=== PATIENT | male | born 1930 | race Caucasian/White ===

== ENCOUNTER 2020-04-20 20:27 | Inpatient (IN) | payer MEDICARE, BC ==
[2020-04-20] MEDS ORDERED: LIDOCAINE 1% INJ 10MG/ML (20 ML MDV) ONE (20:52)
[2020-04-20] MEDS ORDERED: IV FLUID CONTINUATION 1,000 ML IV ONE (20:59)
--- NOTE | 2020-04-20 20:59 | ED ---
General Adult HPI - General Chief complaint: Arrhythmia/Palpitations Stated complaint: Bradycardia Source: EMS Mode of arrival: EMS - History of Present Illness Initial comments: Dictation was produced using Chip[employer] dictation software. please excuse any grammatical, word or spelling errors. This patient was cared for during a federal and state declared state of emergency secondary to Covid 19 Chief Complaint: 89-year-old male transferred from [facility] for heart block History of Present Illness: An is an 89-year-old male who is transferred from [facility] for third degree heart block. According to family member at bedside patient has been feeling generally weak especially worse today. He is having trouble walking proximally 10 feet. He was brought to [facility] via EMS. Patient was evaluated there is found to have complete heart block. [facility] ER physician contacted our pilot plant supervisor who recommended patient be transferred. Patient was started on dopamine infusion. Patient feels okay at rest at bedside. He has no specific complaints currently. The ROS documented in this emergency department record has been reviewed and confirmed by me. Those systems with pertinent positive or negative responses have been documented in the HPI. All other systems are other negative and/or noncontributory. PHYSICAL EXAM: General Impression: Alert and oriented x3, not in acute distress HEENT: Normocephalic atraumatic, extra-ocular movements intact, pupils equal and reactive to light bilaterally, mucous membranes moist. Cardiovascular: Heart regular rate and rhythm Chest: Able to complete full sentences, no retractions, no tachypnea Abdomen: abdomen soft, non-tender, non-distended, no organomegaly Musculoskeletal: Pulses present and equal in all extremities, no peripheral edema Motor: no focal deficits noted Neurological: CN II-XII grossly intact, no focal motor or sensory deficits noted Skin: Intact with no visualized rashes Psych: Normal affect and mood ED course: 89-year-old male transferred from [facility] for third degree heart block. Vital signs upon arrival shows heart rate of 39, Rezulin signs within acceptable limits. Patient's will. Bedside. EKG was performed showing bradycardia. Initial EKG not entirely convincing for heart block however a repeat EKG was performed showing A-V dissociation. Dr. Schultz the pilot plant supervisor team once patient to go to the [facility] urgently for pacemaker placement. Case was discussed with Dr. Bubba Kaufman is willing to accept patients care. EKG interpretation: Ventricular rate 40, junctional rhythm, QRS 92, QTC 360. No MN prolongation, no QTC prolongation, no ST or T-wave changes noted. - Related Data Home Medications Medication Instructions Recorded Confirmed Aspirin EC [Ecotrin Low Dose] 81 mg PO DAILY 04/20/20 04/20/20 Cholecalciferol [Vitamin D3 (25 2,000 unit PO DAILY 04/20/20 04/20/20 Mcg = 1000 Iu)] Oxybutynin Xl [Ditropan Xl] 5 mg PO DAILY 04/20/20 04/20/20 Prevagen Memory 1 tab PO DAILY 04/20/20 04/20/20 Allergies Allergy/AdvReac Type Severity Reaction Status Date / Time No Known Allergies Allergy Verified 04/20/20 20:58 Review of Systems ROS Statement: Those systems with pertinent positive or pertinent negative responses have been documented in the HPI. ROS Other: All systems not noted in ROS Statement are negative. Past Medical History Additional Past Medical History / Comment(s): prostate cancer History of Any Multi-Drug Resistant Organisms: None Reported Past Surgical History: Cholecystectomy, Prostate Surgery Additional Past Surgical History / Comment(s): bilat knee replacements, shoulder surgery, carpal tunnel on right hand. Past Psychological History: No Psychological Hx Reported Smoking Status: Former smoker Past Alcohol Use History: None Reported Past Drug Use History: None Reported Course Vital Signs 04/20/20 04/20/20 20:31 20:50 Pulse Rate 39 L 42 L Respiratory 18 18 Rate Blood Pressure 120/105 167/83 O2 Sat by Pulse 97 99 Oximetry Disposition Clinical Impression: Heart block Disposition: ADMITTED IP TO THIS HOSP Condition: Critical Decision Time: 22:15
[2020-04-20] MEDS ORDERED: NALOXONE 0.4 MG/ML 1 ML VIAL IV PRN (21:00)
[2020-04-20] MEDS ORDERED: LIDOCAINE 1% INJ 10MG/ML (20 ML MDV) SQ ONE (21:01)
[2020-04-20] MEDS ORDERED: fentaNYL (PF) 50 MCG/ML 2 ML AMP ONE (21:10)
[2020-04-20] MEDS ORDERED: fentaNYL (PF) 50 MCG/ML 2 ML AMP IV ONE (21:11)
[2020-04-20] MEDS ORDERED: MIDAZOLAM 2 MG/2 ML VIAL IV ONE (21:20)
[2020-04-20 22:05] LABS: Glucose,Whole Blood 109 mg/dL (75-99)
--- NOTE | 2020-04-20 23:01 | CONS ---
CONSULTATION CHIEF COMPLAINT: High-grade AV block. This is an 89-year-old gentleman with history of dementia who complained of feeling dizzy, unwell and out of focus. He was brought to the emergency room at [facility], where an EKG showed bradycardia with AV dissociation suggestive of complete heart block. The patient is not on any AV polly blockers. There is no prior cardiac history. MEDICATIONS: We do not have a list. ALLERGIES: As charted. Family history, social history, review of systems I am unable to obtain from the patient. PHYSICAL EXAMINATION: On exam, he is comfortable at rest. Heart rate is 50 beats per minute. Blood pressure is 140/70, respiratory rate 18. Chest exam reveals good air entry bilaterally. Heart exam reveals first and second heart sounds. No gallop. He has a pansystolic murmur at the apex. Abdomen is soft. Examination of extremities did not reveal any edema. Peripheral pulses are felt. Labs are pending at this time. ASSESSMENT: Symptomatic high-grade AV block. PLAN: The patient will undergo temporary transvenous pacemaker, and if he does not resume sinus rhythm, he will undergo a permanent pacemaker. MMODL / IJN: [id number] /
--- NOTE | 2020-04-20 23:01 | PCN ---
PROCEDURE NOTE TEMPORARY TRANSVENOUS PACEMAKER: INDICATION: Symptomatic high-grade AV block. PROCEDURE NOTE: After obtaining informed consent, a temporary transvenous pacemaker was performed via the right femoral vein. The patient received local sedation and also received 25 mcg of fentanyl. Initial vascular access was obtained via the femoral vein, and under fluoroscopic guidance temporary transvenous pacemaker was floated into the right ventricle. Adequate pacing and sensing thresholds were obtained. The temporary pacemaker was situated in a stable way in the right groin. MMODL / IJN: [id number] /
[2020-04-20] MEDS ORDERED: TEMAZEPAM 15 MG CAP PO PRN (23:26)
[2020-04-20] MEDS ORDERED: MIDAZOLAM 1 MG/ML 5 ML VIAL IV STA (23:27)
[2020-04-20] MEDS ORDERED: MIDAZOLAM 2 MG/2 ML VIAL IV STA (23:37)
[2020-04-21] MEDS ORDERED: LORazepam 2 MG/ML INJ IV STA (00:33)
[2020-04-21] MEDS ORDERED: LORazepam 2 MG/ML INJ ONE (00:36)
[2020-04-21] MEDS: SODIUM CHLORIDE 0.9% 1,000 ML IV SCH ×2 (03:15→20:53)
[2020-04-21 04:26] LABS: Basophils # (A) 0.1 k/uL (0-0.2); Basophils % (A) 1 %; Eosinophils # (A) 0.2 k/uL (0-0.7); Eosinophils % (A) 2 %; HCT 44.4 % (39.0-53.0); HGB 14.8 gm/dL (13.0-17.5); Lymphocytes # (A) 1.8 k/uL (1.0-4.8); Lymphocytes % (A) 17 %; MCH 32.5 pg (25.0-35.0); MCHC 33.3 g/dL (31.0-37.0); MCV 97.6 fL (80.0-100.0); Mean Platelet Volume 8.4; Monocytes # (A) 0.8 k/uL (0-1.0); Monocytes % (A) 7 %; Neutrophils # (A) 7.3 k/uL (1.3-7.7); Neutrophils % (A) 72 %; RBC 4.55 m/uL (4.30-5.90); RDW 13.6 % (11.5-15.5); WBC 10.2 k/uL (3.8-10.6)
[2020-04-21 04:43] LABS: ALT 9 U/L (4-49); AST 22 U/L (17-59); African American GFR (CKD) >90 (>60 ml/min/1.73 sqM); Albumin 3.6 g/dL (3.5-5.0); Alkaline Phosphatase 63 U/L (38-126); Anion Gap 7 mmol/L; Blood Urea Nitrogen 15 mg/dL (9-20); Calcium 8.7 mg/dL (8.4-10.2); Carbon Dioxide 20 mmol/L (22-30); Chloride 112 mmol/L (98-107); Glucose 101 mg/dL (74-99); Non-African American GFR(CKD) 80 (>60 ml/min/1.73 sqM); Potassium 3.9 mmol/L (3.5-5.1); Sodium 139 mmol/L (137-145); Total Bilirubin 1.1 mg/dL (0.2-1.3)
[2020-04-21 04:46] LABS: Platelet Count 136 k/uL (150-450)
[2020-04-21] MEDS: HEPARIN SODIUM,PORCINE 5,000 UNIT/ML 1 ML VIAL SQ SCH ×2 (08:50→20:50)
[2020-04-21] MEDS: NITROGLYCERIN OINT 1 INCH/GM PACKET TOPICAL SCH ×3 (08:50→23:17)
[2020-04-21] MEDS ORDERED: Potassium Replacement Protocol 1 EACH MISC MISCELLANE PRN (09:20)
--- NOTE | 2020-04-21 09:36 | PN ---
PROGRESS NOTE Arie is an 89-year-old gentleman who is admitted to hospital with symptomatic high- grade AV block. Has a temporary pacemaker which he is using and is functioning normally. An echocardiogram shows normal LV function. Patient has underlying dementia and appears somewhat confused and agitated. On exam, heart rate is 60 beats per minute. Blood pressure is elevated at 160/90. Chest exam reveals good air entry bilaterally. Heart exam reveals first and second heart sounds. No gallop. Exam of extremities did not reveal any edema. Peripheral pulses are palpable. LABS: Show a hemoglobin of 14.8, potassium is 3.9, creatinine is 0.79. ASSESSMENT: Complete heart block, status post temporary transvenous pacemaker. PLAN: Patient will undergo permanent pacemaker later today. He has underlying confusion and dementia, appears agitated. MMODL / IJN: [id number] /
--- NOTE | 2020-04-21 11:00 | ECHOF ---
Referral Reason:HEART BLOCK MEASUREMENTS -------- HEIGHT: 172.7 cm WEIGHT: 82.6 kg BP: 111/99 RVIDd: 2.4 cm (< 3.3) IVSd: 1.4 cm (0.6 - 1.1) LVIDd: 4.3 cm (3.9 - 5.3) LVPWd: 1.4 cm (0.6 - 1.1) IVSs: 1.8 cm LVIDs: 3.3 cm LVPWs: 1.9 cm LA Diam: 3.4 cm (2.7 - 3.8) Ao Diam: 3.9 cm (2.0 - 3.7) MV EXCURSION: 24.295 mm (> 18.000) MV EF SLOPE: 96 mm/s (70 - 150) EPSS: 0.7 cm RAP: 5.00 mmHg RVSP: 20.86 mmHg FINDINGS -------- Paced rhythm. This was a technically adequate study. The left ventricular size is normal. There is moderate concentric left ventricular hypertrophy. O verall left ventricular systolic function is normal with, an EF between 55 - 60 %. The right ventricle is normal in size. The left atrial size is normal. Interatrial and interventricular septum intact. There is mild aortic valve sclerosis. Mild mitral annular calcification present. Mild mitral regurgitation is present. Mild tricuspid regurgitation present. Right ventricular systolic pressure is normal at < 35 mmHg. The pulmonic valve was not well visualized. The aortic root is dilated measuring 3.9cm. IVC Not well visulized. There is no pericardial effusion. CONCLUSIONS -------- 1. Paced rhythm. 2. This was a technically adequate study. 3. The left ventricular size is normal. 4. There is moderate concentric left ventricular hypertrophy. 5. Overall left ventricular systolic function is normal with, an EF between 55 - 60 %. 6. There is mild aortic valve sclerosis. 7. Mild mitral annular calcification present. 8. Mild mitral regurgitation is present. 9. Mild tricuspid regurgitation present. 10. The aortic root is dilated measuring 3.9cm. 11. There is no pericardial effusion. DICTIONARY EDITOR: Fiordaliza Koo [facility]
--- NOTE | 2020-04-21 11:53 | P.HPIM ---
History of Present Illness H&P Date: 04/21/20 Chief Complaint: Increasing generalized weakness, transferred from [facility] -Third degree HB This is a pleasant 82-year-old gentleman initially brought in with increasing generalized weakness, gait dysfunction, evaluated in the ER at at [facility] ,discovered to be in symptomatic third-degree heart block, transferred to [facility]. Evaluated by cardiology, initiated on dopamine drip, status post temporary transvenous pacer placement. Scheduled for permanent pacemaker today. Afebrile, normal WBC, hematology unremarkable with the exception of platelets of 136. Sodium 139, potassium 3.9, chloride 112, carbon dioxide 20, BUN 15, creatinine 0.79. Echo reporting normal LV function. Mild confusion, disoriented to year, president. Staff reports during the night patient was combative, confused, suspect resulting from heart block. Review of Systems ROS Statement: Those systems with pertinent positive or pertinent negative responses have been documented in the HPI. ROS Other: All systems not noted in ROS Statement are negative. Past Medical History Additional Past Medical History / Comment(s): prostate cancer History of Any Multi-Drug Resistant Organisms: None Reported Past Surgical History: Cholecystectomy, Prostate Surgery Additional Past Surgical History / Comment(s): bilat knee replacements, shoulder surgery, carpal tunnel on right hand. Past Psychological History: No Psychological Hx Reported Smoking Status: Former smoker Past Alcohol Use History: None Reported Past Drug Use History: None Reported Medications and Allergies Home Medications Medication Instructions Recorded Confirmed Type Aspirin EC [Ecotrin Low Dose] 81 mg PO DAILY 04/20/20 04/20/20 History Cholecalciferol [Vitamin D3 (25 2,000 unit PO DAILY 04/20/20 04/20/20 History Mcg = 1000 Iu)] Oxybutynin Xl [Ditropan Xl] 5 mg PO DAILY 04/20/20 04/20/20 History Prevagen Memory 1 tab PO DAILY 04/20/20 04/20/20 History Allergies Allergy/AdvReac Type Severity Reaction Status Date / Time No Known Allergies Allergy Verified 04/20/20 20:58 Physical Exam Vitals: Vital Signs Temp Pulse Resp BP Pulse Ox 04/21/20 09:00 60 12 121/76 99 04/21/20 08:30 60 12 111/99 100 04/21/20 08:00 97.5 F L 60 12 121/102 100 04/21/20 07:30 61 18 96 07/30/20 07:00 62 14 174/83 94 L 04/21/20 06:30 60 12 04/21/20 06:00 60 11 L 170/80 95 04/21/20 05:30 59 L 16 97 04/21/20 05:00 59 L 22 167/92 92 L 04/21/20 04:30 60 18 98 04/21/20 04:00 97.5 F L 60 14 140/93 96 04/21/20 03:30 60 12 182/123 98 04/21/20 03:00 60 14 171/106 98 04/21/20 02:30 60 20 98 04/21/20 02:00 60 12 154/116 98 04/21/20 01:30 61 14 97 04/21/20 01:00 90 30 H 177/117 93 L 04/21/20 00:30 81 30 H 96 04/21/20 00:18 71 22 93 L 04/21/20 00:00 97.4 F L 60 15 155/81 96 04/20/20 23:30 60 17 96 04/20/20 23:00 96.9 F L 60 16 174/90 94 L 04/20/20 22:30 59 L 14 97 04/20/20 22:00 61 13 99 04/20/20 21:48 35 H 04/20/20 20:50 42 L 18 167/83 99 04/20/20 20:31 39 L 18 120/105 97 Intake and Output 04/20/20 04/21/20 04/21/20 22:59 06:59 14:59 Intake Total 100 160 60 Output Total 2425 425 Balance 154 -9962 -401 Intake: IV 100 Intake, IV Titration 160 60 Amount Sodium Chloride 0.9% 1, 160 60 000 ml @ 20 mls/hr IV . Q[facility]H [facility] Rx#:[id number] Output: Urine 2425 425 Other: Voiding Method Indwelling Catheter Weight 90.718 kg 83 kg PHYSICAL EXAM: VITAL SIGNS: As above GENERAL: Sitting up in bed, no acute distress, appears alert and oriented to person and place, recognizes PCP, Dr. Kaufman. HEENT: Conjunctivae normal. eyes normal. NECK: No JVD. No thyroid enlargement. No LNs CARDIOVASCULAR: S1, S2 regular.No murmur RESPIRATION: Breath sounds diminished in the bases. No rhonchi or crackles. No bronchial breathing. ABDOMEN: Soft, nontender . No guarding. no masses palpable. No ascites, No hepatosplenomegaly.Bowel sounds heard. LEGS: No edema. no swelling PSYCHIATRY: Alert and oriented X2, mood and affect normal. NERVOUS SYSTEM: Cranial N 2-12 grossly normal. Moves all 4 limbs. Diffuse weakness ,No focal deficits. Strength and sensation grossly intact.. Skin: Warm and dry, no rash Lymphatic system. No LN neck axilla. Results CBC & Chem 7: 04/21/20 03:50 04/21/20 03:50 Labs: Abnormal Lab Results - Last 24 Hours (Table) 04/20/20 04/21/20 04/21/20 Range/Units 21:52 03:50 03:50 Plt Count 136 L (150-450) k/uL Chloride 112 H (98-107) mmol/L Carbon Dioxide 20 L (22-30) mmol/L Glucose 101 H (74-99) mg/dL POC Glucose (mg/dL) 109 H (75-99) mg/dL Total Protein 6.0 L (6.3-8.2) g/dL Assessment and Plan Assessment: Third-degree heart block, symptomatic, permanent pacemaker placement pending. Acute metabolic encephalopathy, secondary to the above Former nicotine dependence History of prostate surgery Plan: Continue on current medication regime ,monitoring and symptomatic treatment. Scheduled for permanent pacemaker placement today with cardiology. GI and DVT prophylaxis with heparin subcu, Protonix. The impression and plan of care has been dictated as directed. : I performed a history and examination of this patient, discussed the same with the dictator. I agree with the dictator's note ,documented as a scribe. Any additional findings or plans will be noted.
[2020-04-21] MEDS: PANTOPRAZOLE 40 MG/10 ML VIAL IVP SCH (13:23)
[2020-04-21] MEDS ORDERED: ACETAMINOPHEN TAB 325 MG TAB PO STA (17:26)
[2020-04-21] MEDS: MELATONIN 5 MG TABLET PO SCH (20:49)
[2020-04-21] MEDS: LORazepam 2 MG/ML INJ IV PRN (21:38)
[2020-04-22] MEDS ORDERED: NITROGLYCERIN-D5W PMX 50 MG in DEXTROSE/WATER 1 250ML.BAG IV SCH (03:15)
[2020-04-22] MEDS ORDERED: IV FLUID CONTINUATION 1,000 ML IV ONE (07:10)
[2020-04-22] MEDS ORDERED: IV FLUID CONTINUATION 200 ML IV ONE (07:10)
[2020-04-22] MEDS ORDERED: IOPAMIDOL-250 50ML BTL IV ONE (07:31)
[2020-04-22] MEDS ORDERED: MIDAZOLAM 2 MG/2 ML VIAL ONE (07:37)
[2020-04-22] MEDS ORDERED: diphenhydrAMINE 50 MG/ML 1 ML VIAL ONE (07:37)
[2020-04-22] MEDS ORDERED: fentaNYL (PF) 50 MCG/ML 2 ML AMP ONE (07:37)
[2020-04-22] MEDS ORDERED: PROPOFOL 10 MG/ML 20 ML VIAL IV ONE (07:37)
[2020-04-22] MEDS ORDERED: LIDOCAINE 1% INJ 10MG/ML (20 ML MDV) ONE (07:42)
[2020-04-22] MEDS ORDERED: ceFAZolin 1,000 MG in SODIUM CHLORIDE 0.9% IRRIGATIO 250 ML IRRIGATION STA (07:52)
[2020-04-22] MEDS ORDERED: LIDOCAINE 1% INJ 10MG/ML (20 ML MDV) SQ ONE (08:03)
[2020-04-22] MEDS ORDERED: ACETAMINOPHEN TAB 325 MG TAB PO PRN (08:48)
--- NOTE | 2020-04-22 08:58 | P.PCN ---
Date of Procedure: 04/22/20 Preoperative Diagnosis: 3rd degree AV block Postoperative Diagnosis: The same Procedure(s) Performed: Axillary venography, dual-chamber permanent pacemaker Description of Procedure: HISTORY: This is a 89-year-old gentleman was admitted to the hospital with complete AV dissociation and panic AV block. Patient had a temporary pacemaker by Dr. Schultz who requested permanent pacemaker implantation. CONSENT:I have discussed the risks, benefits and alternative therapies for the above-mentioned procedure and for both sedation/analgesia as well as necessary blood product administration, if indicated, as they pertain to this patient. The patient has indicated understanding and acceptance of the risks and procedures discussed. PROCEDURE: Patient was brought to the lab in a fasting state. Patient was prepped and draped in the usual fashion. The department of anesthesia provided anesthesia during the procedure. Patient was confused and combative requiring sedation.. The skin below the left clavicle was infiltrated with lidocaine. An incision was made parallel to deltopectoral groove was deepened until the pectoral fascia was exposed. A pocket was created by blunt dissection and cautery. Axillary venography was performed to delineate the course of the axillary vein. 2 sticks were performed into extrathoracic portion of the axillary vein and 2 sheaths were advanced over the guidewires and left in subclavian vein. Conscious Sedation: This was provided by the department of anesthesia Duration 38minutes LEADS: ATRIAL: This is manufactured by [employer]. Model number is [id number] and the serial number is [id number] VENTRICULAR: This is manufactured by [employer]. Model number is [id number] and the serial number is [id number] The device: This is manufactured by [employer]. Model number [id number] and the serial number [id number] The ventricular lead is maneuvered l with help of a straight and curved stylets into the left ventricle apical septal region. Satisfactory position was obtained and threshold measurements were made. The atrial lead was then maneuvered into the right atrial appendage. And thresholds were obtained. THRESHOLDS: ATRIUM: The minimum pacing threshold was 1 at pulse width of 0.5 with impedance of 608 P-wave: 2 mV VENTRICLE: The minimal pacing threshold is 1 at pulse width of 0.5. The impedance is 810 R-wave: 8 The leads and pulse generator remained in the pocket after it was washed with antibiotics. Pocket was closed in the usual fashion. The fascia was closed with 2-0 Prolene ,the subcutaneous tissue was closed with 3-0 Prolene and the skin was closed with 4-0 Prolene. PROGRAMMING: MODE: AAIR to DDDR RATE: 60 to 130 OUTPUT: Atrium: 3.5 Ventricle: 3.5 V FINAL IMPRESSION: #1. Successful implantation of dual-chamber pacemaker. #2. Axillary venography COMPLICATIONS: None PLAN: Continue prophylactic antibiotics. Monitored on the telemetry unit. Increase activity as tolerated
[2020-04-22] MEDS ORDERED: APOAEQUORIN PO SCH (09:00)
[2020-04-22 09:37] LABS: Glucose,Whole Blood 120 mg/dL (75-99)
[2020-04-22] MEDS: OXYBUTYNIN XL 5 MG TAB.ER.24 PO SCH (09:55)
[2020-04-22] MEDS: CHOLECALCIFEROL 1,000 UNIT TAB PO SCH (09:55)
[2020-04-22] MEDS: PANTOPRAZOLE 40 MG/10 ML VIAL IVP SCH (09:56)
[2020-04-22] MEDS: NITROGLYCERIN OINT 1 INCH/GM PACKET TOPICAL SCH ×3 (10:00→23:17)
[2020-04-22 11:18] LABS: HGB 15.1 gm/dL (13.0-17.5); MCH 31.2 pg (25.0-35.0); MCHC 31.4 g/dL (31.0-37.0); MCV 99.3 fL (80.0-100.0); Mean Platelet Volume 7.8; Platelet Count 145 k/uL (150-450); RBC 4.83 m/uL (4.30-5.90); RDW 13.3 % (11.5-15.5); WBC 9.7 k/uL (3.8-10.6)
[2020-04-22] MEDS ORDERED: hydrALAZINE HCL 20 MG/ML 1 ML VIAL IVP STA (11:26)
[2020-04-22 11:30] LABS: African American GFR (CKD) >90 (>60 ml/min/1.73 sqM); Anion Gap 6 mmol/L; Blood Urea Nitrogen 16 mg/dL (9-20); Calcium 8.6 mg/dL (8.4-10.2); Carbon Dioxide 22 mmol/L (22-30); Chloride 111 mmol/L (98-107); Glucose 119 mg/dL (74-99); Non-African American GFR(CKD) 79 (>60 ml/min/1.73 sqM); Sodium 139 mmol/L (137-145)
[2020-04-22 11:39] LABS: Potassium 4.9 mmol/L (3.5-5.1)
--- NOTE | 2020-04-22 15:16 | P.PN ---
Subjective Progress Note Date: 04/22/20 Principal diagnosis: Chief Complaint: Increasing generalized weakness, transferred from [facility] -Third degree HB This is a pleasant 82-year-old gentleman initially brought in with increasing generalized weakness, gait dysfunction, evaluated in the ER at at [facility] ,discovered to be in symptomatic third-degree heart block, transferred to [facility]. Evaluated by cardiology, initiated on dopamine drip, status post temporary transvenous pacer placement. Scheduled for permanent pacemaker today. Afebrile, normal WBC, hematology unremarkable with the exception of platelets of 136. Sodium 139, potassium 3.9, chloride 112, carbon dioxide 20, BUN 15, creatinine 0.79. Echo reporting normal LV function. Mild confusion, disoriented to year, president. Staff reports during the night patient was combative, confused, suspect resulting from heart block. 04/22/2020 Patient is seen and evaluated and follow-up and currently remains in the ICU and is being closely monitored. Patient is just returned from pacemaker placement with Dr. Suarez. patient's dressing is dry and intact noted on the left chest wall. Current heart rate is 60 on the monitor. Patient continues to be drowsy status post sedation for the procedure. patient is afebrile. Cardiology following closely. Will continue to monitor closely. Review of systems: unable to obtain as patient was recently sedated for pacemaker placement Active Medications Acetaminophen (Tylenol Tab) 650 mg PO Q6HR PRN PRN Reason: Mild Pain Cholecalciferol (Vitamin D3 (25 Mcg = 1000 Iu)) 2,000 unit PO DAILY [facility] Last Admin: 04/22/20 09:55 Dose: Not Given Documented by: Sodium Chloride (Saline 0.9%) 1,000 mls @ 20 mls/hr IV .Q24H [facility] Last Admin: 04/21/20 20:53 Dose: 20 mls/hr Documented by: Lorazepam (Ativan) 0.5 mg IV Q6HR PRN PRN Reason: Anxiety Last Admin: 04/21/20 21:38 Dose: 0.5 mg Documented by: Melatonin (Melatonin) 5 mg PO HS [facility] Last Admin: 04/21/20 20:49 Dose: 5 mg Documented by: Miscellaneous Information (Potassium Per Protocol) 1 each MISCELLANE DAILY PRN; Protocol PRN Reason: Per Protocol Naloxone HCl (Narcan) 0.2 mg IV Q2M PRN PRN Reason: Opioid Reversal Nitroglycerin (Nitro-Bid Oint) 1 inch TOPICAL Q8HR [facility] Last Admin: 04/22/20 15:13 Dose: 1 inch Documented by: Oxybutynin Chloride (Ditropan Xl) 5 mg PO DAILY [facility] Last Admin: 04/22/20 09:55 Dose: Not Given Documented by: Pantoprazole Sodium (Protonix) 40 mg IVP DAILY [facility] Last Admin: 04/22/20 09:56 Dose: 40 mg Documented by: Sodium Chloride (Saline Flush) 10 ml IV Q12HR [facility] Last Admin: 04/22/20 09:56 Dose: 10 ml Documented by: Objective - Vital Signs Vital signs: Vital Signs Temp 98.6 F 04/22/20 10:00 Pulse 60 04/22/20 11:00 Resp 15 04/22/20 11:04 BP 154/98 04/22/20 11:00 Pulse Ox 100 04/22/20 11:00 Intake & Output 04/21/20 04/22/20 04/22/20 18:59 06:59 18:59 Intake Total 260 220 520 Output Total 1175 420 150 Balance -915 -200 370 Weight 80.4 kg Intake: IV 500 Intake, IV Titration 260 220 20 Amount Sodium Chloride 0.9% 1, 260 220 20 000 ml @ 20 mls/hr IV . Q24H [facility] Rx#:[id number] Output: Urine 1175 420 150 Other: Voiding Method Indwelling Catheter Indwelling Catheter Indwelling Catheter - Exam VITAL SIGNS: temp is 97.6F, pulse is 64, respirations are 14, blood pressure is 142/80, oxygen saturations 100% on room air. GENERAL: lying in bed, recently sedated, sleeping HEENT: Conjunctivae normal. eyes normal. NECK: No JVD. No thyroid enlargement. No LNs CARDIOVASCULAR: S1, S2 regular.No murmur RESPIRATION: Breath sounds diminished in the bases. No rhonchi or crackles. No bronchial breathing. ABDOMEN: Soft, nontender . No guarding. no masses palpable. No ascites, No hepatosplenomegaly. Bowel sounds heard. LEGS: No edema. no swelling PSYCHIATRY: Alert and oriented X2, mood and affect normal. NERVOUS SYSTEM: Cranial N 2-12 grossly normal. Moves all 4 limbs. Diffuse weakness ,No focal deficits. Strength and sensation grossly intact.. Skin: Warm and dry, no rash Lymphatic system. No LN neck axilla. - Labs CBC & Chem 7: 04/22/20 10:59 04/22/20 10:59 Labs: Abnormal Lab Results - Last 24 Hours (Table) 04/22/20 04/22/20 04/22/20 Range/Units 09:34 10:59 10:59 Plt Count 145 L (150-450) k/uL Chloride 111 H (98-107) mmol/L Glucose 119 H (74-99) mg/dL POC Glucose (mg/dL) 120 H (75-99) mg/dL Assessment and Plan Assessment: Third-degree heart block, symptomatic, status post permanent pacemaker placement Acute metabolic encephalopathy, secondary to the above Former nicotine dependence History of prostate surgery GI prophylaxis: Protonix DVT prophylaxis: Will resume subcu heparin once cleared by cardiology as patient just underwent pacemaker placement today Plan: continue current medications, management, and symptomatic treatment. patient continues to be closely monitored in the ICU. Cardiology following closely. Patient is status post pacemaker placement today. Will continue to monitor closely. prognosis is guarded. Further recommendations to follow.
[2020-04-22] MEDS: MELATONIN 5 MG TABLET PO SCH (21:16)
[2020-04-22] MEDS: SODIUM CHLORIDE 0.9% 1,000 ML IV SCH (21:47)
--- NOTE | 2020-04-23 06:30 | XR ---
EXAMINATION TYPE: XR chest 2V DATE OF EXAM: 04/23/2020 HISTORY: Lead placement check. REFERENCE: Previous study dated 07/23/2012. FINDINGS: There is a bipolar pacemaker place on the left. Approximately overlies the right atrium and distally overlies the right ventricle. The heart is enlarged. There is atelectasis at the lung bases bilaterally. Pleural spaces appear misha r. No pneumothorax is seen. IMPRESSION: SATISFACTORY PACEMAKER LEAD PLACEMENT.
[2020-04-23] MEDS: PANTOPRAZOLE 40 MG/10 ML VIAL IVP SCH (09:19)
[2020-04-23] MEDS: OXYBUTYNIN XL 5 MG TAB.ER.24 PO SCH (09:19)
[2020-04-23] MEDS: CHOLECALCIFEROL 1,000 UNIT TAB PO SCH (09:19)
[2020-04-23] MEDS: NITROGLYCERIN OINT 1 INCH/GM PACKET TOPICAL SCH ×2 (09:20→16:20)
--- NOTE | 2020-04-23 09:45 | P.PN ---
Subjective Progress Note Date: 04/23/20 This is a pleasant 89-year-old gentleman was admitted to the hospital symptomatic high-grade AV block. Initially temporary pacemaker was placed. Echocardiogram with Doppler study showed normal LV systolic function with mild MR and mild TR. He subsequently underwent placement of dual-chamber permanent pacemaker yesterday by Dr. Suarez. Overall the patient says he's feeling well. He is quite appearing and has some underlying dementia and therefore is a poor historian and does not always answer questions appropriately but currently has no significant complaints. He does not appear to be in any acute distress. Vital signs show heart rate in the 60s, blood pressure 146/84. Chest x-ray this morning showed adequate placement of pacemaker leads. Objective - Vital Signs Vital signs: Vital Signs Temp 97.7 F 04/23/20 00:40 Pulse 68 04/23/20 04:00 Resp 20 04/23/20 04:00 BP 146/84 04/23/20 00:40 Pulse Ox 96 04/23/20 00:40 Intake & Output 04/22/20 04/23/20 04/23/20 18:59 06:59 18:59 Intake Total 520 160 Output Total 225 975 Balance 295 -815 Weight 78 kg Intake: IV 500 Intake, IV Titration 20 160 Amount Sodium Chloride 0.9% 1, 20 160 000 ml @ 20 mls/hr IV . Q24H [facility] Rx#:[id number] Output: Urine 225 975 Other: Voiding Method Indwelling Catheter Indwelling Catheter - Exam PHYSICAL EXAMINATION: HEENT: Head is atraumatic, normocephalic. Pupils equal, round. Neck is supple. There is no elevated jugular venous pressure. HEART EXAMINATION: Heart sounds regular, S1 and S2 normal. No murmur or gallop heard. CHEST EXAMINATION: Lungs are clear to auscultation. LIC site with dressing dry and intact no significant edema, no erythema and no ecchymosis noted. ABDOMEN: Soft, nontender. Bowel sounds are heard. No organomegaly noted. EXTREMITIES: 1+ peripheral pulses with no evidence of peripheral edema and no calf tenderness noted. NEUROLOGIC patient is awake, alert and oriented x1-2. . - Labs CBC & Chem 7: 04/22/20 10:59 04/22/20 10:59 Labs: Abnormal Lab Results - Last 24 Hours (Table) 04/22/20 04/22/20 Range/Units 10:59 10:59 Plt Count 145 L (150-450) k/uL Chloride 111 H (98-107) mmol/L Glucose 119 H (74-99) mg/dL Assessment and Plan Assessment: #1 symptomatic high-grade AV block #2 status post implantation of permanent pacemaker #3 dementia #4 hypertension Plan: From cardiology's perspective, if pacemaker interrogation today is okay patient may be discharged home and follow-up in the office in about a week. Patient will need to maintain left arm restrictions including no raising the arm above shoulder level, no lifting greater than 5 pounds, no pushing no pulling and no reaching behind him for 4-6 weeks. Patient will need a sling initially. The above dictated assessment and findings were discussed with signing physician. The impression and plan of care have been directed as dictated. Chiara Chavez, Nurse Practitioner, acting as scribe for signing physician.
--- NOTE | 2020-04-23 23:29 | P.PN ---
Subjective Progress Note Date: 04/23/20 Principal diagnosis: Third-degree heart block, symptomatic, status post permanent pacemaker placement This is a pleasant 82-year-old gentleman initially brought in with increasing generalized weakness, gait dysfunction, evaluated in the ER at at [facility] ,discovered to be in symptomatic third-degree heart block, transferred to [facility]. Evaluated by cardiology, initiated on dopamine drip, status post temporary transvenous pacer placement. Scheduled for permanent pacemaker today. Afebrile, normal WBC, hematology unremarkable with the exception of platelets of 136. Sodium 139, potassium 3.9, chloride 112, carbon dioxide 20, BUN 15, creatinine 0.79. Echo reporting normal LV function. Mild confusion, disoriented to year, president. Staff reports during the night patient was combative, confused, suspect resulting from heart block. 04/22/2020 Patient is seen and evaluated and follow-up and currently remains in the ICU and is being closely monitored. Patient is just returned from pacemaker placement with Dr. Suarez. patient's dressing is dry and intact noted on the left chest wall. Current heart rate is 60 on the monitor. Patient continues to be drowsy status post sedation for the procedure. patient is afebrile. Cardiology following closely. Will continue to monitor closely. 04/23/2020 Patient admitted to hospital due to high-grade AV block. Underwent dual-chamber pacemaker placement on 04/22/2020. Patient is currently resting in bed comfortably. No complaints of chest pain or shortness of the. No fever no chills. Patient feels very weak and also has underlying dementia. No acute distress. Patient may need rehab transfer. 2D echocardiogram showed normal left ventricular systolic function. Mild MR and mild TR. Current medications reviewed. Objective - Vital Signs Vital signs: Vital Signs Temp 98.4 F 04/23/20 08:00 Pulse 62 04/23/20 11:58 Resp 18 04/23/20 16:00 BP 137/74 04/23/20 08:00 Pulse Ox 96 04/23/20 08:00 Intake & Output 04/23/20 04/23/20 04/24/20 06:59 18:59 06:59 Intake Total 160 860 Output Total 975 Balance -815 860 Weight 78 kg Intake: Intake, IV Titration 160 480 Amount Sodium Chloride 0.9% 1, 160 480 000 ml @ 20 mls/hr IV . Q24H [facility] Rx#:[id number] Oral 380 Output: Urine 975 Other: Voiding Method Indwelling Catheter Indwelling Catheter # Voids 2 - Exam GENERAL: Patient is lying in the bed comfortably. Awake alert and oriented. Underlying dementia. HEENT: Conjunctivae normal. eyes normal. NECK: No JVD. No thyroid enlargement. No LNs CARDIOVASCULAR: S1, S2 regular.No murmur RESPIRATION: Breath sounds diminished in the bases. No rhonchi or crackles. No bronchial breathing. ABDOMEN: Soft, nontender . No guarding. no masses palpable. No ascites, No hepatosplenomegaly. Bowel sounds heard. LEGS: No edema. no swelling PSYCHIATRY: Alert and oriented X2, mood and affect normal. NERVOUS SYSTEM: Cranial N 2-12 grossly normal. Moves all 4 limbs. Diffuse weakness ,No focal deficits. Strength and sensation grossly intact.. Skin: Warm and dry, no rash Lymphatic system. No LN neck axilla. - Labs CBC & Chem 7: 04/22/20 10:59 04/22/20 10:59 Assessment and Plan Assessment: Third-degree heart block, symptomatic, status post permanent pacemaker placement Acute metabolic encephalopathy, secondary to the above Dementia Former nicotine dependence History of prostate surgery GI prophylaxis: Protonix DVT prophylaxis: Will resume subcu heparin once cleared by cardiology as patient just underwent pacemaker placement Plan: continue current medications, management, and symptomatic treatment. Patient is currently in the cardiac unit.. Cardiology following closely. Patient is s tatus post pacemaker placement today. Will continue to monitor closely. prognosis is guarded. Further recommendations to follow. Time with Patient: Greater than 30
[2020-04-24] MEDS: MELATONIN 5 MG TABLET PO SCH ×2 (00:02→22:56)
[2020-04-24] MEDS: NITROGLYCERIN OINT 1 INCH/GM PACKET TOPICAL SCH ×3 (00:04→16:25)
[2020-04-24] MEDS: LORazepam 2 MG/ML INJ IV PRN (01:17)
[2020-04-24] MEDS: SODIUM CHLORIDE 0.9% 1,000 ML IV SCH (05:39)
[2020-04-24] MEDS ORDERED: PANTOPRAZOLE 40 MG TABLET PO SCH (09:00)
[2020-04-24] MEDS: PANTOPRAZOLE 40 MG TABLET PO SCH (10:09)
[2020-04-24] MEDS: CHOLECALCIFEROL 1,000 UNIT TAB PO SCH (10:09)
[2020-04-24] MEDS: OXYBUTYNIN XL 5 MG TAB.ER.24 PO SCH (10:09)
--- NOTE | 2020-04-24 11:42 | PN ---
PROGRESS NOTE 89-year-old gentleman that is admitted to hospital with high-grade AV block, underwent permanent pacemaker. He is doing well and is pleasantly confused as he has been all along. Denies any symptoms. On exam, heart rate is 64 beats per minute. Blood pressure is 140/79, respiratory rate 18. O2 saturation is 95% on room air. There is no jugular venous distention. Chest exam reveals good air entry bilaterally. Heart exam reveals first and second heart sounds and a systolic murmur at the apex. Abdomen is soft. Exam of extremities did not reveal any edema. Peripheral pulses are felt. Labs show a hemoglobin of 15.1, potassium is 4.9, creatinine is 0.8. ASSESSMENT: 1. High-grade AV block status post permanent pacemaker. 2. Confusional state. PLAN: Patient is stable from a cardiac standpoint, probably needs placement. We need to restrict his movement. MMODL / IJN: [id number] /
--- NOTE | 2020-04-24 23:12 | P.PN ---
Subjective Progress Note Date: 04/24/20 Principal diagnosis: Third-degree heart block, symptomatic, status post permanent pacemaker placement This is a pleasant 82-year-old gentleman initially brought in with increasing generalized weakness, gait dysfunction, evaluated in the ER at at [facility] ,discovered to be in symptomatic third-degree heart block, transferred to [facility]. Evaluated by cardiology, initiated on dopamine drip, status post temporary transvenous pacer placement. Scheduled for permanent pacemaker today. Afebrile, normal WBC, hematology unremarkable with the exception of platelets of 136. Sodium 139, potassium 3.9, chloride 112, carbon dioxide 20, BUN 15, creatinine 0.79. Echo reporting normal LV function. Mild confusion, disoriented to year, president. Staff reports during the night patient was combative, confused, suspect resulting from heart block. 04/22/2020 Patient is seen and evaluated and follow-up and currently remains in the ICU and is being closely monitored. Patient is just returned from pacemaker placement with Dr. Suarez. patient's dressing is dry and intact noted on the left chest wall. Current heart rate is 60 on the monitor. Patient continues to be drowsy status post sedation for the procedure. patient is afebrile. Cardiology following closely. Will continue to monitor closely. 04/23/2020 Patient admitted to hospital due to high-grade AV block. Underwent dual-chamber pacemaker placement on 04/22/2020. Patient is currently resting in bed comfortably. No complaints of chest pain or shortness of the. No fever no chills. Patient feels very weak and also has underlying dementia. No acute distress. Patient may need rehab transfer. 2D echocardiogram showed normal left ventricular systolic function. Mild MR and mild TR. 8-2 20 Patient is currently resting in bed comfortably. Denied any complaints of chest pain or shortness of breath. Left upper extremity sling is in place. Pacemaker site showed no evidence of bleeding. Patient will be continued on PT OT and possible rehab transfer in the next 24 to 48 hours. Current medications reviewed. Objective - Vital Signs Vital signs: Vital Signs Temp 98.3 F 04/24/20 08:00 Pulse 66 04/24/20 16:00 Resp 17 04/24/20 16:00 BP 146/79 04/24/20 08:00 Pulse Ox 95 04/24/20 08:00 Intake & Output 04/24/20 04/24/20 04/25/20 06:59 18:59 06:59 Intake Total 1080 Output Total 1300 Balance -1300 1080 Weight 76.5 kg Intake: Oral 1080 Output: Urine 1300 Other: Voiding Method Indwelling Catheter Toilet # Voids 2 4 # Bowel Movements 1 - Exam GENERAL: Patient is lying in the bed comfortably. Awake alert and oriented. Underlying dementia. HEENT: Conjunctivae normal. eyes normal. NECK: No JVD. No thyroid enlargement. No LNs CARDIOVASCULAR: S1, S2 regular.No murmur RESPIRATION: Breath sounds diminished in the bases. No rhonchi or crackles. No bronchial breathing.Left upper chest pacemaker in place. ABDOMEN: Soft, nontender . No guarding. no masses palpable. No ascites, No hepatosplenomegaly. Bowel sounds heard. LEGS: No edema. no swelling PSYCHIATRY: Alert and oriented X2, mood and affect normal. NERVOUS SYSTEM: Cranial N 2-12 grossly normal. Moves all 4 limbs. Diffuse weakness ,No focal deficits. Strength and sensation grossly intact.. Skin: Warm and dry, no rash Lymphatic system. No LN neck axilla. - Labs CBC & Chem 7: 04/22/20 10:59 04/22/20 10:59 Assessment and Plan Assessment: Third-degree heart block, symptomatic, status post permanent pacemaker placement Acute metabolic encephalopathy, secondary to the above Dementia Former nicotine dependence History of prostate surgery GI prophylaxis: Protonix DVT prophylaxis: Will resume subcu heparin once cleared by cardiology as patient just underwent pacemaker placement Plan: continue current medications, management, and symptomatic treatment. Patient is currently in the cardiac unit.. Cardiology following closely. Patient is status post pacemaker placement . Will continue to monitor closely. prognosis is guarded. Further recommendations to follow. Time with Patient: Greater than 30
[2020-04-25] MEDS: SODIUM CHLORIDE 0.9% 1,000 ML IV SCH (08:10)
[2020-04-25] MEDS: NITROGLYCERIN OINT 1 INCH/GM PACKET TOPICAL SCH ×2 (08:10→08:19)
[2020-04-25] MEDS: OXYBUTYNIN XL 5 MG TAB.ER.24 PO SCH (08:11)
[2020-04-25] MEDS: PANTOPRAZOLE 40 MG TABLET PO SCH (08:11)
[2020-04-25] MEDS: CHOLECALCIFEROL 1,000 UNIT TAB PO SCH (08:11)
[2020-04-25] MEDS ORDERED: HEPARIN SODIUM,PORCINE 5,000 UNIT/ML 1 ML VIAL SQ SCH (09:00)
--- NOTE | 2020-04-25 09:06 | P.PN ---
Subjective Progress Note Date: 04/25/20 Principal diagnosis: Status post permanent pacemaker This is an 89-year-old gentleman who was admitted to the hospital with advanced AV block and underwent a permanent pacemaker. He was seen today. Overall and from the cardiac vascular standpoint overview, he is a stable. He denies any chest pain or chest discomfort or shortness of breath. Chest x-ray was performed after the pacemaker and revealed appropriate position of the pacemaker lead. From the cardiac vascular standpoint of view, the patient possibly can be discharged into a rehab or home. Objective - Vital Signs Vital signs: Vital Signs Temp 98.3 F 04/24/20 08:00 Pulse 66 04/24/20 16:00 Resp 17 04/25/20 00:00 BP 146/79 04/24/20 08:00 Pulse Ox 95 04/24/20 08:00 Intake & Output 04/24/20 04/25/20 04/25/20 18:59 06:59 18:59 Intake Total 1080 1020 Output Total 650 600 Balance 1080 -650 420 Weight 74 kg Intake: Oral 1080 1020 Output: Urine 650 600 Other: Voiding Method Toilet Toilet # Voids 4 1 # Bowel Movements 1 - Constitutional General appearance: Present: no acute distress - Respiratory Respiratory: bilateral: CTA - Cardiovascular Rhythm: regular Heart sounds: normal: S1, S2 - Labs CBC & Chem 7: 04/22/20 10:59 04/22/20 10:59 Assessment and Plan Assessment: Assessment #1 advanced AV block and status post permanent pacemaker #2 change in mental status Plan #1 overall the patient seems to be stable from a cardiac vascular standpoint overview
[2020-04-25 11:57] VITALS: BP 117/87; PULSE 59; RESP 17; TEMP 98.2
--- NOTE | 2020-04-27 10:02 | P.DS ---
Providers Date of admission: 04/20/20 21:01 Attending physician: Bubba Kaufman Consults: 04/20/20 21:00 Consult Physician Stat Consulting Provider: Khanh Schultz Consult Reason/Comments: heart block Do you want consulting provider notified?: Already Contacted Primary care physician: Bubba Kaufman Hospital Course: Diagnoses: Third-degree heart block, symptomatic, status post permanent pacemaker placement Acute metabolic encephalopathy, secondary to the above. Completely resolved Dementia Former nicotine dependence History of prostate surgery Hospital course: This is a pleasant 89 years old male with multiple medical problems as below presents with generalized weakness and bradycardia found to have third-degree heart block, patient has been evaluated by stock letterer and he underwent dual-chamber pacemaker placement on 04/22 and post operatively patient is doing well, is fully awake and oriented, he denies chest pain or dyspnea, he is tolerating diet well, no change in urine or bowel habits as he is told me this morning. No fever. Patient is able to walk in the hallway, physical therapy evaluated the patient and recommended 24 hour supervision with family and home health care Patient has been evaluated by stock letterer who cleared him for discharge Problems and management plan were discussed with the patient and he verbalized understanding and acceptance Patient was found stable and can be discharged home however he needs follow-up as an outpatient. Patient was instructed to follow up with PCP Dr. Kaufman within one week and patient agrees. Also patient was instructed to follow up with his stock letterer Dr. Suarez in 1-2 weeks and he agrees. Appointments made for the patient's with his PCP and stock letterer as above and patient is agreeable to them as per staff Gen: patient is a AAOx3, no distress CVS: S1-S2, RRR, no murmur Lungs: B/L CTA, no wheezing Abdomen: soft, no distention, no tenderness, positive bowel sounds Extremity: no leg edema or induration Time spent more than 35 minutes Patient Condition at Discharge: Critical Plan - Discharge Summary New Discharge Prescriptions: New Pantoprazole [Protonix] 40 mg PO DAILY #10 tablet. Acetaminophen Tab [Tylenol] 650 mg PO Q6HR PRN tab PRN Reason: Mild Pain Continue Oxybutynin Xl [Ditropan XL] 5 mg PO DAILY Cholecalciferol [Vitamin D3 (25 Mcg = 1000 Iu)] 2,000 unit PO DAILY Aspirin EC [Ecotrin Low Dose] 81 mg PO DAILY Prevagen Memory 1 tab PO DAILY Discharge Medication List Aspirin EC [Ecotrin Low Dose] 81 mg PO DAILY 04/20/20 [History] Cholecalciferol [Vitamin D3 (25 Mcg = 1000 Iu)] 2,000 unit PO DAILY 04/20/20 [History] Oxybutynin Xl [Ditropan XL] 5 mg PO DAILY 04/20/20 [History] Prevagen Memory 1 tab PO DAILY 04/20/20 [History] Acetaminophen Tab [Tylenol] 650 mg PO Q6HR PRN tab 04/25/20 [Rx] Pantoprazole [Protonix] 40 mg PO DAILY #10 tablet. 04/25/20 [Rx] Follow up Appointment(s)/Referral(s): [facility], [NON-STAFF] - Bubba Kaufman DO [Primary Care Provider] - 05/02/20 10:00 am (May 02 10:00) Kyle Suarez MD [STAFF PHYSICIAN] - 04/28/20 9:30 am (April 28 9:30 in device clinic) Patient Instructions/Handouts: Pacemaker (DC) Activity/Diet/Wound Care/Special Instructions: Heart healthy diet Activity is limited to till you see your doctor do not lift left arm above shoulder level for 4-6 weeks wear sling as much as possible keep dressing intact, cover with ceran wrap while showering Discharge Disposition: HOME WITH HOME HEALTH SERVICES
== END 2020-04-25 13:48 | disposition home health service (06) | DRG 242 ==
LOC: EC 20:27 → 2SICU 20:58 → 3SCARD 04-23 01:18
PROVIDERS: ADMIT Family Medicine; ATTEND Family Medicine
PROC: 5A1223Z Performance of Cardiac Pacing, Continuous (ICD-10-PCS; 2020-04-20)
PROC: 0JH606Z Insertion of Pacemaker, Dual Chamber into Chest Subcutaneous Tissue and Fascia, Open Approach (ICD-10-PCS; principal; 2020-04-22 07:30)
PROC: 02HL3JZ Insertion of Pacemaker Lead into Left Ventricle, Percutaneous Approach (ICD-10-PCS; principal; 2020-04-22 07:30)
PROC: 02H63JZ Insertion of Pacemaker Lead into Right Atrium, Percutaneous Approach (ICD-10-PCS; principal; 2020-04-22 07:30)
DX: I44.2 Atrioventricular block, complete (principal); G93.41 Metabolic encephalopathy; F03.91 Unspecified dementia, unspecified severity, with behavioral disturbance; Z96.653 Presence of artificial knee joint, bilateral; I10 Essential (primary) hypertension; Z79.82 Long term (current) use of aspirin; Z85.46 Personal history of malignant neoplasm of prostate; Z90.49 Acquired absence of other specified parts of digestive tract; Z87.891 Personal history of nicotine dependence
CPT/HCPCS: 33208; 33210; 71046; 80048; 80053; 83735; 85025; 85027; 93005; 93306; 99285

== ENCOUNTER 2020-12-02 16:45 | Inpatient (IN) | payer MEDICARE, BC ==
[2020-12-02] MEDS ORDERED: SODIUM CHLORIDE 0.9% 1,000 ML IV STA ×2 (16:58→19:13)
--- NOTE | 2020-12-02 17:02 | ED ---
Altered Mental Status HPI - General Stated Complaint: Altered Mental Status Time Seen by Provider: 12/02/20 16:45 Source: patient, EMS, RN notes reviewed, old records reviewed Mode of arrival: EMS - History of Present Illness Initial Comments: This is a 89-year-old male with a history of multiple medical issues including pacemaker and recently diagnosed urinary tract infection who is brought in from home his of altered mental status and increased respiratory rate and apparently failure to thrive with the antibiotics he is on right now. Per paramedics she did feel warm but he was uncooperative for a lot of the evaluation. He did recently have odiferous urine. No cough nausea vomiting diarrhea reported. The patient himself is a poor historian. MD Complaint: altered mental status, confusion, other - Related Data Home Medications Medication Instructions Recorded Confirmed Aspirin EC [Ecotrin Low Dose] 81 mg PO DAILY 04/20/20 04/20/20 Cholecalciferol [Vitamin D3 (25 2,000 unit PO DAILY 04/20/20 04/20/20 Mcg = 1000 Iu)] Oxybutynin Xl [Ditropan XL] 5 mg PO DAILY 04/20/20 04/20/20 Prevagen Memory 1 tab PO DAILY 04/20/20 04/20/20 Previous Rx's Medication Instructions Recorded Acetaminophen Tab [Tylenol] 650 mg PO Q6HR PRN tab 04/25/20 Pantoprazole [Protonix] 40 mg PO DAILY #10 tablet. 04/25/20 Allergies Allergy/AdvReac Type Severity Reaction Status Date / Time No Known Allergies Allergy Verified 04/20/20 20:58 Review of Systems ROS Statement: Those systems with pertinent positive or pertinent negative responses have been documented in the HPI. ROS Other: All systems not noted in ROS Statement are negative. Limitations: ROS unobtainable due to patients medical condition Past Medical History Additional Past Medical History / Comment(s): prostate cancer History of Any Multi-Drug Resistant Organisms: None Reported Past Surgical History: Cholecystectomy, Prostate Surgery Additional Past Surgical History / Comment(s): bilat knee replacements, shoulder surgery, carpal tunnel on right hand. Past Psychological History: No Psychological Hx Reported Smoking Status: Former smoker Past Alcohol Use History: None Reported Past Drug Use History: None Reported General Exam - General Exam Comments Initial Comments: This is a well-developed well-nourished awake alert but confused male General appearance: alert, lethargic Head exam: Present: atraumatic, normocephalic, normal inspection Eye exam: Present: normal appearance, PERRL, EOMI. Absent: scleral icterus, conjunctival injection, periorbital swelling ENT exam: Present: mucous membranes dry Neck exam: Present: normal inspection. Absent: tenderness, meningismus, lymphadenopathy Respiratory exam: Present: normal lung sounds bilaterally. Absent: respiratory distress, wheezes, rales, rhonchi, stridor Cardiovascular Exam: Present: normal rhythm, tachycardia, normal heart sounds. Absent: systolic murmur, diastolic murmur, rubs, gallop, clicks GI/Abdominal exam: Present: soft, distended, normal bowel sounds, other (Increased tympany to percussion). Absent: tenderness, guarding, rebound, rigid Rectal exam: Present: deferred Extremities exam: Present: full ROM, normal capillary refill, other (Patient's have dressing and a right heel or a wound is known.). Absent: tenderness, pedal edema, joint swelling, calf tenderness Back exam: Present: normal inspection Neurological exam: Present: alert, altered, CN II-XII intact Psychiatric exam: Present: other (Unknown at this time) Skin exam: Present: warm, dry, normal color, other (Except for right heel wound). Absent: rash Course Vital Signs 12/02/20 16:51 Temperature 97.3 F L Pulse Rate 88 Respiratory 24 Rate Blood Pressure 153/75 O2 Sat by Pulse 94 L Oximetry Medical Decision Making - Medical Decision Making Patient does have evidence of a UTI dehydration mildly elevated lactic acid evidence of ileus. Patient be admitted I did discuss case the patient's family the case is discussed with the [facility] - Lab Data Result diagrams: 12/02/20 17:02 12/02/20 17:02 Lab Results 12/02/20 12/02/20 12/02/20 Range/Units 17:02 17:02 17:02 WBC 14.1 H (3.8-10.6) k/uL RBC 4.66 (4.30-5.90) m/uL Hgb 14.9 (13.0-17.5) gm/dL Hct 44.9 (39.0-53.0) % MCV 96.3 (80.0-100.0) fL MCH 32.0 (25.0-35.0) pg MCHC 33.3 (31.0-37.0) g/dL RDW 14.2 (11.5-15.5) % Plt Count 207 (150-450) k/uL MPV 7.6 Neutrophils % 91 % Lymphocytes % 3 % Monocytes % 3 % Eosinophils % 2 % Basophils % 0 % Neutrophils # 12.8 H (1.3-7.7) k/uL Lymphocytes # 0.4 L (1.0-4.8) k/uL Monocytes # 0.4 (0-1.0) k/uL Eosinophils # 0.3 (0-0.7) k/uL Basophils # 0.0 (0-0.2) k/uL PT (9.0-12.0) sec INR (<1.2) Sodium 140 (137-145) mmol/L Potassium 4.4 (3.5-5.1) mmol/L Chloride 107 (98-107) mmol/L Carbon Dioxide 23 (22-30) mmol/L Anion Gap 10 mmol/L BUN 20 (9-20) mg/dL Creatinine 0.87 (0.66-1.25) mg/dL Est GFR (CKD-EPI)AfAm 89 (>60 ml/min/1.73 sqM) Est GFR (CKD-EPI)NonAf 77 (>60 ml/min/1.73 sqM) Glucose 170 H (74-99) mg/dL Plasma Lactic Acid Omar 2.2 H* (0.7-2.0) mmol/L Calcium 9.0 (8.4-10.2) mg/dL Magnesium 1.9 (1.6-2.3) mg/dL Total Bilirubin 1.2 (0.2-1.3) mg/dL AST 19 (17-59) U/L ALT 11 (4-49) U/L Alkaline Phosphatase 116 (38-126) U/L Ammonia <9 (<30) umol/L Creatine Kinase 57 (55-170) U/L Troponin I (0.000-0.034) ng/mL Total Protein 6.8 (6.3-8.2) g/dL Albumin 3.9 (3.5-5.0) g/dL Urine Color Urine Appearance (Clear) Urine pH (5.0-8.0) Ur Specific Morrison (1.001-1.035) Urine Protein (Negative) Urine Glucose (UA) (Negative) Urine Ketones (Negative) Urine Blood (Negative) Urine Nitrite (Negative) Urine Bilirubin (Negative) Urine Urobilinogen (<2.0) mg/dL Ur Leukocyte Esterase (Negative) Urine RBC (0-5) /hpf Urine WBC (0-5) /hpf Urine WBC Clumps (None) /hpf Urine Bacteria (None) /hpf 12/02/20 12/02/20 12/02/20 Range/Units 17:02 17:02 18:11 WBC (3.8-10.6) k/uL RBC (4.30-5.90) m/uL Hgb (13.0-17.5) gm/dL Hct (39.0-53.0) % MCV (80.0-100.0) fL MCH (25.0-35.0) pg MCHC (31.0-37.0) g/dL RDW (11.5-15.5) % Plt Count (150-450) k/uL MPV Neutrophils % % Lymphocytes % % Monocytes % % Eosinophils % % Basophils % % Neutrophils # (1.3-7.7) k/uL Lymphocytes # (1.0-4.8) k/uL Monocytes # (0-1.0) k/uL Eosinophils # (0-0.7) k/uL Basophils # (0-0.2) k/uL PT 10.7 (9.0-12.0) sec INR 1.0 (<1.2) Sodium (137-145) mmol/L Potassium (3.5-5.1) mmol/L Chloride (98-107) mmol/L Carbon Dioxide (22-30) mmol/L Anion Gap mmol/L BUN (9-20) mg/dL Creatinine (0.66-1.25) mg/dL Est GFR (CKD-EPI)AfAm (>60 ml/min/1.73 sqM) Est GFR (CKD-EPI)NonAf (>60 ml/min/1.73 sqM) Glucose (74-99) mg/dL Plasma Lactic Acid Omar (0.7-2.0) mmol/L Calcium (8.4-10.2) mg/dL Magnesium (1.6-2.3) mg/dL Total Bilirubin (0.2-1.3) mg/dL AST (17-59) U/L ALT (4-49) U/L Alkaline Phosphatase (38-126) U/L Ammonia (<30) umol/L Creatine Kinase (55-170) U/L Troponin I <0.012 (0.000-0.034) ng/mL Total Protein (6.3-8.2) g/dL Albumin (3.5-5.0) g/dL Urine Color Light [place] Urine Appearance Turbid (Clear) Urine pH 6.0 (5.0-8.0) Ur Specific Morrison 1.017 (1.001-1.035) Urine Protein 2+ H (Negative) Urine Glucose (UA) Negative (Negative) Urine Ketones Negative (Negative) Urine Blood Large H (Negative) Urine Nitrite Positive (Negative) Urine Bilirubin Negative (Negative) Urine Urobilinogen <2.0 (<2.0) mg/dL Ur Leukocyte Esterase Large H (Negative) Urine RBC >182 H (0-5) /hpf Urine WBC >182 H (0-5) /hpf Urine WBC Clumps Many H (None) /hpf Urine Bacteria Occasional H (None) /hpf - EKG Data -: EKG Interpreted by Me EKG Comments: Pacemaker rhythm 88. Interval 102 QRS duration 94 QT since QTC 332/41 artifact is present. - Radiology Data Radiology results: report reviewed (Imaging reviewed as well as reports evidence of increased interstitial markings on x-ray CTs are negative for acute findings. Some evidence of ileus), image reviewed Disposition Clinical Impression: Delirium due to general medical condition, Urinary tract infection, Dehydration, Lactic acidosis, Failure of outpatient treatment Disposition: ADMITTED IP TO THIS [facility] Condition: Fair Referrals: Bubba Kaufman DO [Primary Care Provider] - 1-2 days
[2020-12-02 17:17] LABS: Basophils % (A) 0 %; Eosinophils # (A) 0.3 k/uL (0-0.7); Eosinophils % (A) 2 %; HCT 44.9 % (39.0-53.0); HGB 14.9 gm/dL (13.0-17.5); Lymphocytes # (A) 0.4 k/uL (1.0-4.8); Lymphocytes % (A) 3 %; MCHC 33.3 g/dL (31.0-37.0); MCV 96.3 fL (80.0-100.0); Mean Platelet Volume 7.6; Monocytes # (A) 0.4 k/uL (0-1.0); Monocytes % (A) 3 %; Neutrophils # (A) 12.8 k/uL (1.3-7.7); Neutrophils % (A) 91 %; Platelet Count 207 k/uL (150-450); RBC 4.66 m/uL (4.30-5.90); RDW 14.2 % (11.5-15.5); WBC 14.1 k/uL (3.8-10.6)
[2020-12-02] MEDS: SODIUM CHLORIDE 0.9% 1,000 ML IV STA ×2 (17:19→20:04)
[2020-12-02 17:27] LABS: Prothrombin Time 10.7 sec (9.0-12.0)
[2020-12-02 17:28] LABS: Albumin 3.9 g/dL (3.5-5.0); Magnesium 1.9 mg/dL (1.6-2.3); Potassium 4.4 mmol/L (3.5-5.1); Total Bilirubin 1.2 mg/dL (0.2-1.3); Total Protein 6.8 g/dL (6.3-8.2)
[2020-12-02 17:36] LABS: Lactic Acid, Venous 2.2 mmol/L (0.7-2.0)
--- NOTE | 2020-12-02 17:54 | CT ---
EXAMINATION TYPE: CT brain wo con DATE OF EXAM: 12/02/2020 COMPARISON: None HISTORY: Altered mental status. CT DLP: 3652.4 mGycm Automated exposure control for dose reduction was used. There is cerebral atrophy. There is no mass effect nor midline shift. There is no sign of intracrania l hemorrhage. Calvarium is intact. There is normal aeration of the mastoid sinuses. IMPRESSION: Cerebral atrophy. No acute intracranial abnormality.
[2020-12-02] MEDS ORDERED: cefTRIAXone IN SWFI 1,000 MG/10 ML SYRINGE IVP STA (17:59)
[2020-12-02 18:27] LABS: Appearance,Urine Turbid (Clear); Bacteria,Urine Occasional /hpf; Bilirubin,Urine Negative (Negative); Blood,Urine Large (Negative); Color,Urine Light Orange; Glucose,Urine (UA) Negative (Negative); Ketones,Urine Negative (Negative); Leukocyte Esterase,Urine Large (Negative); Nitrite,Urine Positive (Negative); Protein,Urine 2+ (Negative); RBC,Urine >182 /hpf (0-5); Specific Gravity,Urine 1.017 (1.001-1.035); Urobilinogen,Urine <2.0 mg/dL (<2.0); WBC,Urine >182 /hpf (0-5)
--- NOTE | 2020-12-02 18:45 | XR ---
EXAMINATION TYPE: XR KUB DATE OF EXAM: 12/02/2020 COMPARISON: 09/14/2013 HISTORY: Abdominal distention TECHNIQUE: 3 views were obtained supine FINDINGS: There is no sign of intestinal obstruction or pneumoperitoneum. There is some gas-filled di stended loops of bowel that could be ileus. There is mild interstitial infiltrate and atelectasis at the lung bases. IMPRESSION: Distended gas-filled bowel could relate to some ileus similar to old exam. No free air.
--- NOTE | 2020-12-02 18:47 | XR ---
EXAMINATION TYPE: XR chest 2V DATE OF EXAM: 12/02/2020 COMPARISON: NONE HISTORY: Fever and confusion TECHNIQUE: 2 views FINDINGS: There is coarse interstitial infiltrate in the lungs. Heart size is normal. There is left a xillary pacemaker. There is slight blunting of the costophrenic angles. IMPRESSION: Pulmonary fibrotic changes. There is new interstitial infiltrates compared to old exam. S mall pleural effusions. Mild pulmonary congestion. Mild heart failure is possible.
[2020-12-02] MEDS ORDERED: ACETAMINOPHEN TAB 325 MG TAB PO PRN (19:09)
[2020-12-02] MEDS ORDERED: NALOXONE 0.4 MG/ML 1 ML VIAL IV PRN (19:09)
[2020-12-02] MEDS ORDERED: FUROSEMIDE 10 MG/ML 2 ML VIAL IV ONE (20:15)
[2020-12-02] MEDS ORDERED: SODIUM CHLORIDE 0.9% 1,000 ML IV SCH (20:30)
[2020-12-02] MEDS: MEMANTINE 10 MG TAB PO SCH (22:38)
[2020-12-02] MEDS: QUEtiapine 50 MG TAB PO SCH (22:38)
[2020-12-02] MEDS: PRAMIPEXOLE 0.5 MG TAB PO SCH (22:38)
[2020-12-02] MEDS: APIXABAN 2.5 MG TABLET PO SCH (22:39)
[2020-12-03] MEDS ORDERED: APOAEQUORIN PO SCH (09:00)
[2020-12-03] MEDS: MEMANTINE 10 MG TAB PO SCH ×2 (09:10→20:15)
[2020-12-03] MEDS: PANTOPRAZOLE 40 MG TABLET PO SCH (09:10)
[2020-12-03] MEDS: CHOLECALCIFEROL 25 MCG (1000 IU) TABLET PO SCH (09:10)
[2020-12-03] MEDS: ASPIRIN 81 MG PO SCH (09:10)
[2020-12-03] MEDS: APIXABAN 2.5 MG TABLET PO SCH ×2 (09:10→20:15)
[2020-12-03] MEDS ORDERED: DOCUSATE 100 MG CAP PO PRN (10:06)
[2020-12-03] MEDS: OXYBUTYNIN XL 5 MG TAB.ER.24 PO SCH (10:19)
[2020-12-03] MEDS ORDERED: FUROSEMIDE 10 MG/ML 4 ML VIAL IV STA (10:58)
--- NOTE | 2020-12-03 15:09 | P.HPIM ---
History of Present Illness 82-year-old male with history of dementia most probably vascular dementia side dementia came in because of increased confusion. Patient had a poor fully catheter that was placed in the past for her chronic urinary retention which was removed about 2 weeks ago since then patient progressively got worse much worse yesterday. Because of this reason patient was brought to ER patient is found to have significantly abnormal urine with highly elevated white blood cell count 10 and RBCs. Patient also has leukocytosis without any fever patient was started on antibiotics for possibility of urinary tract infection. As per my instruc tions nursing staff did do bladder scans found to have urinary retention. Centeno catheter was placed, infectious disease was consulted. Patient was on IV fluids patient does have history of heart failure and patient appears to have bilateral pedal edema patient does have elevated BNP IV fluids are being discontinued patient will be given a dose of Lasix. Patient had an echo cardiac exam showed normal ejection fraction mild aortic sclerosis and this was done in month of March in 2019. Patient is alert oriented 1 I will. History mostly because of his hearing problems. Review of Systems Unable to obtain due to his clinical condition Past Medical History Past Medical History: Heart Failure, Memory Impairment Additional Past Medical History / Comment(s): prostate cancer, eliquis after pacemaker put in, low heart rate is why he needed pacemaker, right heel pressure ulcer, bruises easily from blood thinner History of Any Multi-Drug Resistant Organisms: None Reported Past Surgical History: Cholecystectomy, Pacemaker, Prostate Surgery Additional Past Surgical History / Comment(s): bilat knee replacements, shoulder surgery, carpal tunnel on right hand. Past Anesthesia/Blood Transfusion Reactions: No Reported Reaction Type of Cardiac Device: Permanent Pacemaker Device Placement Date:: 2019 Past Psychological History: Anxiety Additional Psychological History / Comment(s): hallucinating before on seroquel Smoking Status: Former smoker Past Alcohol Use History: None Reported Past Drug Use History: None Reported - Past Family History Father Additional Family Medical History / Comment(s): emphysema Medications and Allergies Home Medications Medication Instructions Recorded Confirmed Type Cholecalciferol [Vitamin D3 (25 2,000 unit PO DAILY 04/20/20 12/02/20 History Mcg = 1000 Iu)] Apixaban [Eliquis] 2.5 mg PO BID 12/02/20 12/02/20 History Docusate [Colace] 100 mg PO DAILY PRN 12/02/20 12/02/20 History Furosemide [Lasix] 20 mg PO DAILY PRN 12/02/20 12/02/20 History Memantine HCl 10 mg PO BID 12/02/20 12/02/20 History Metoprolol Succinate [Toprol XL] 25 mg PO DAILY 12/02/20 12/02/20 History Nitrofurantoin Macrocrystal 100 mg PO Q12H 12/02/20 12/02/20 History [Nitrofurantoin] Pramipexole [Mirapex] 0.5 mg PO HS 12/02/20 12/02/20 History QUEtiapine [SEROquel] 50 mg PO HS 12/02/20 12/02/20 History Tamsulosin HCl [Flomax] 0.4 mg PO DAILY 12/02/20 12/02/20 History Allergies Allergy/AdvReac Type Severity Reaction Status Date / Time No Known Allergies Allergy Verified 12/02/20 19:57 Physical Exam Vitals: Vital Signs Temp Pulse Pulse Resp BP BP Pulse Ox 12/03/20 11:43 97.6 F 60 17 133/74 99 12/03/20 09:11 64 18 97 12/03/20 04:54 97.5 F L 57 L 18 114/67 98 12/02/20 21:15 98.2 F 73 18 133/77 93 L 12/02/20 19:08 98.6 F 153/75 12/02/20 16:51 97.3 F L 88 24 153/75 94 L Intake and Output 12/03/20 12/03/20 12/03/20 06:59 14:59 22:59 Output Total 2400 Balance -2400 Output: Urine 2400 Other: Voiding Method Diaper Incontinent # Voids 2 Weight 81.647 kg PHYSICAL EXAMINATION: GENERAL: The patient is alert and oriented x1, not in any acute distress. Well developed, well nourished. HEENT: Pupils are round and equally reacting to light. EOMI. No scleral icterus. No conjunctival pallor. Normocephalic, atraumatic. No pharyngeal erythema. No thyromegaly. CARDIOVASCULAR: S1 and S2 present. No murmurs, rubs, or gallops. PULMONARY: Chest is clear to auscultation, no wheezing or crackles. ABDOMEN: Soft, nontender, nondistended, normoactive bowel sounds. No palpable organomegaly. MUSCULOSKELETAL: No joint swelling or deformity. EXTREMITIES: No cyanosis, clubbing, or pedal edema. NEUROLOGICAL: She doesn't follow commands although doesn't appear to have any focal deficits SKIN: No rashes. Results CBC & Chem 7: 12/02/20 17:02 12/02/20 17:02 Labs: Abnormal Lab Results - Last 24 Hours (Table) 12/02/20 12/02/20 12/02/20 Range/Units 17:02 17:02 17:02 WBC 14.1 H (3.8-10.6) k/uL Neutrophils # 12.8 H (1.3-7.7) k/uL Lymphocytes # 0.4 L (1.0-4.8) k/uL Glucose 170 H (74-99) mg/dL Plasma Lactic Acid Omar 2.2 H* (0.7-2.0) mmol/L Urine Protein (Negative) Urine Blood (Negative) Ur Leukocyte Esterase (Negative) Urine RBC (0-5) /hpf Urine WBC (0-5) /hpf Urine WBC Clumps (None) /hpf Urine Bacteria (None) /hpf 12/02/20 Range/Units 18:11 WBC (3.8-10.6) k/uL Neutrophils # (1.3-7.7) k/uL Lymphocytes # (1.0-4.8) k/uL Glucose (74-99) mg/dL Plasma Lactic Acid Omar (0.7-2.0) mmol/L Urine Protein 2+ H (Negative) Urine Blood Large H (Negative) Ur Leukocyte Esterase Large H (Negative) Urine RBC >182 H (0-5) /hpf Urine WBC >182 H (0-5) /hpf Urine WBC Clumps Many H (None) /hpf Urine Bacteria Occasional H (None) /hpf Microbiology - Last 24 Hours (Table) 12/02/20 18:11 Urine Culture - Preliminary Urine,Voided Thrombosis Risk Factor Assmnt - Choose All That Apply Any of the Below Risk Factors Present?: Yes Each Factor Represents 1 point: Medical pt on bed rest, Obesity (BMI >25), Swollen legs (current) Other Risk Factors: Yes Each Risk Factor Represents 2 Points: Patient confined to bed Each Risk Factor Represents 3 Points: Age 75 years or older Other congenital or acquired thrombophilia - If yes, enter type in comment: No Thrombosis Risk Factor Assessment Total Risk Factor Score: 8 Thrombosis Risk Factor Assessment Level: High Risk Assessment and Plan Plan: -Encephalopathy: Most probably secondary to UTI or urinary retention 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 Patient will be continue antibiotics infectious disease will be consulted. 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
[2020-12-03] MEDS: QUEtiapine 50 MG TAB PO SCH (20:15)
[2020-12-03] MEDS: PRAMIPEXOLE 0.5 MG TAB PO SCH (20:15)
[2020-12-04] MEDS: AMPICILLIN-SULBACTAM 3 GM in SODIUM CHLORIDE 0.9% 100 ML IVPB SCH ×5 (00:37→23:39)
[2020-12-04] MEDS: CHOLECALCIFEROL 25 MCG (1000 IU) TABLET PO SCH (09:22)
[2020-12-04] MEDS: ASPIRIN 81 MG PO SCH (09:22)
[2020-12-04] MEDS: PANTOPRAZOLE 40 MG TABLET PO SCH (09:23)
[2020-12-04] MEDS: MEMANTINE 10 MG TAB PO SCH ×2 (09:23→20:16)
[2020-12-04] MEDS: APIXABAN 2.5 MG TABLET PO SCH ×2 (09:23→20:16)
[2020-12-04] MEDS: TAMSULOSIN 0.4 MG CAP.ER.24H PO SCH (09:23)
[2020-12-04] MEDS: OXYBUTYNIN XL 5 MG TAB.ER.24 PO SCH (09:23)
--- NOTE | 2020-12-04 09:45 | CONS ---
CONSULTATION DATE OF SERVICE: 12/03/2020 REASON FOR CONSULTATION: Urinary tract infection. HISTORY OF PRESENT ILLNESS: The patient is an 89 -year-old male who has been brought into the ER for evaluation of mental status changes and increasing respiratory distress and failure to thrive. Apparently the patient was recently diagnosed with UTI in the outpatient setting and has been treated with antibiotic. However, it is not very clear what antibiotic the patient was receiving. The patient is not a very good historian and when asked specifically the reason he came to the hospital he was unable to answer the question. The patient denies having any headache. No chest pain, shortness of breath or cough. No abdominal pain or any diarrhea. On presentation to the hospital, the patient was afebrile and no fever has been recorded since admission to the hospital. Patient sating 97 to 99 percent on room air. The patient did have a positive UA with large leukocyte esterase, more than 100 RBCs. Donovan PCR was negative. White count 14.1, creatinine 0.87. Lactic acid is 2.8. Repeat is 1.6. Currently being treated with Rocephin and urine now showing Enterococcus species. Blood culture has been negative. REVIEW OF SYSTEMS: Positive points have been mentioned in HPI. Rest of the systems are negative. PAST MEDICAL HISTORY: Prostate cancer and osteoarthritis. PAST SURGICAL HISTORY: Cholecystectomy, surgery for prostate cancer, shoulder surgery and carpal tunnel release. SOCIAL HISTORY: Remote history of smoking. No drinking or drug use. FAMILY HISTORY: No pertinent findings noticed. ALLERGIES: No known drug allergies. MEDICATIONS: The patient is currently on Tylenol, Rocephin 2 grams daily. He is on Eliquis, aspirin, vitamin D3, Colace, Namenda, Narcan, Ditropan, Protonix, Seroquel, Flomax. PHYSICAL EXAMINATION: Blood pressure is 156/77, pulse of 85, temperature 98.5. He is 94% on room air. General description is an elderly male lying in bed in no distress. No tachypnea or accessory muscles of respiration use. HEENT: Examination shows no pallor or scleral icterus. Oral mucous membranes dry. NECK: Trachea central. No thyromegaly. LUNGS: Unlabored breathing. Clear to auscultation anteriorly. HEART S1, S2. Regular rate and rhythm. ABDOMEN: Soft, no tenderness. No guarding. No rigidity. EXTREMITIES: No edema of he feet. SKIN examination: No rash or mass palpable. NEUROLOGICAL: Patient is awake, alert, oriented times three. Mood and affect normal. LABS: BUN of 20, creatinine 0.87. Liver enzymes normal and electrolytes are normal. Lactic acid 2.3, repeat is 1.6, hemoglobin is 14.3, white count 14.1. Urine was positive. Culture with Enterococcus. DIAGNOSTIC IMPRESSION AND PLAN: Patient admitted to the hospital with weakness, mental status changes with a history of prostate cancer, possible urinary outflow obstruction, admitted to the hospital with urinary tract infection, failing outpatient therapy. Urine is currently showing Enterococcus. PLAN: 1. Discontinue Rocephin. 2. Start the patient on Unasyn 3 grams q.6 hours. 3. Gentle IV fluid. 4. We will follow on his clinical condition and culture to further adjust medication if needed. Thank you for this consultation. Will follow this patient along with you. NAKITA / HIRENN: [id number] / SANTIAGO
--- NOTE | 2020-12-04 15:37 | P.PN ---
Subjective 82-year-old male with history of dementia most probably vascular dementia side dementia came in because of increased confusion. Patient had a poor fully catheter that was placed in the past for her chronic urinary retention which was removed about 2 weeks ago since then patient progressively got worse much worse yesterday. Because of this reason patient was brought to ER patient is found to have significantly abnormal urine with highly elevated white blood cell count 10 and RBCs. Patient also has leukocytosis without any fever patient was started on antibiotics for possibility of urinary tract infection. As per my instructions nursing staff did do bladder scans found to have urinary retention. Centeno catheter was placed, infectious disease was consulted. Patient was on IV fluids patient does have history of heart failure and patient appears to have bilateral pedal edema patient does have elevated BNP IV fluids are being discontinued patient will be given a dose of Lasix. Patient had an echo cardiac exam showed normal ejection fraction mild aortic sclerosis and this was done in month of March in 2019. Patient is alert oriented 1 I will. History mostly because of his hearing problems. 12/04/2020 Patient has group D enterococcus in the urine and patient is presently on Unasyn. Patient will be evaluated by physical therapy and occupational therapy will evaluate the patient patient probably will need placement in subacute rehabilitation patient may end up being a senior living patient. Patient need to be discharged with Centeno catheter and will need outpatient evaluation by urology. Patient mental status is at his baseline. Daughter was at bedside. Constitutional: Denied any fatigue denied any fever. Cardio vascular: denied any chest pain, palpitations Gastrointestinal denied any nausea vomiting Pulmonary: Denied any shortness of breath cough Neurologic denied any new focal deficits All inpatient medications were reviewed and appropriate changes in these medications as dictated in the interval history and assessment and plan. Objective - Vital Signs Vital signs: Vital Signs Temp 98 F 12/04/20 11:17 Pulse 59 L 12/04/20 11:17 Resp 17 12/04/20 11:17 BP 122/56 12/04/20 11:17 Pulse Ox 97 12/04/20 11:17 Intake & Output 12/03/20 12/04/20 12/04/20 17:59 06:59 18:59 Intake Total Output Total Balance Weight Intake: Oral Output: Urine Uretheral (Centeno) Other: Voiding Method Indwelling Catheter - Exam PHYSICAL EXAMINATION: GENERAL: The patient is alert and oriented x2, not in any acute distress. Well developed, well nourished. HEENT: Pupils are round and equally reacting to light. EOMI. No scleral icterus. No conjunctival pallor. Normocephalic, atraumatic. No pharyngeal erythema. No thyromegaly. CARDIOVASCULAR: S1 and S2 present. No murmurs, rubs, or gallops. PULMONARY: Chest is clear to auscultation, no wheezing or crackles. ABDOMEN: Soft, nontender, nondistended, normoactive bowel sounds. No palpable organomegaly. MUSCULOSKELETAL: No joint swelling or deformity. EXTREMITIES: No cyanosis, clubbing, or pedal edema. NEUROLOGICAL: She doesn't follow commands although doesn't appear to have any focal deficits SKIN: No rashes. - Labs CBC & Chem 7: 12/02/20 17:02 12/02/20 17:02 Labs: Microbiology - Last 24 Hours (Table) 12/02/20 18:41 Blood Culture - Preliminary Blood No Growth after 24 hours 12/02/20 18:42 Blood Culture - Preliminary Blood No Growth after 24 hours 12/02/20 18:11 Urine Culture - Preliminary Urine,Voided Group D Enterococcus Assessment and Plan Plan: -Encephalopathy: Most probably secondary to UTI or urinary retention patient pr obably has toxic encephalopathy. Patient will be continue antibiotics infectious disease will be consulted. Patient is a Centeno catheter and patient will be discharged with a Centeno catheter. Patient has group D enterococcus in the urine for which patient is on Unasyn. 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 -Generalized deconditioning: Age-related muscle atrophy patient will benefit from physical therapy in subacute rehabilitation.
[2020-12-04] MEDS ORDERED: LACTULOSE 20 GM/30 ML CUP PO PRN (17:12)
--- NOTE | 2020-12-04 19:14 | PN ---
PROGRESS NOTE DATE OF SERVICE: 12/04/2020 REASON FOR FOLLOWUP: Enterococcus urinary tract infection. INTERVAL HISTORY: The patient is currently. Afebrile patient is more awake, alert. He is more appropriate per the family at the bedside. No chest pain or cough. No abdominal pain or diarrhea. PHYSICAL EXAMINATION: Blood pressure 122/56, pulse of 59, temperature 98. He is 97% on room air. General description: The patient is an elderly male lying in bed in no distress. Respiratory system: Unlabored breathing, clear to auscultation anteriorly. Heart S1, S2. Regular rate and rhythm. Abdomen soft, no tenderness. LABS: Urine culture with Enterococcus sensitivities pending. DIAGNOSTIC IMPRESSION AND PLAN: Patient with enterococcus urinary tract infection for which the patient is currently covered with Unasyn to continue to have shown clinical response. Will wait for the culture to finalize to determine discharge antibiotics. Family at the bedside. Questions and concerns were answered. MMODL / IJN: [id number] /
[2020-12-04] MEDS: PRAMIPEXOLE 0.5 MG TAB PO SCH (20:16)
[2020-12-04] MEDS: QUEtiapine 50 MG TAB PO SCH (20:16)
[2020-12-05] MEDS: AMPICILLIN-SULBACTAM 3 GM in SODIUM CHLORIDE 0.9% 100 ML IVPB SCH ×3 (05:33→17:17)
[2020-12-05] MEDS: TAMSULOSIN 0.4 MG CAP.ER.24H PO SCH (09:34)
[2020-12-05] MEDS: OXYBUTYNIN XL 5 MG TAB.ER.24 PO SCH (09:34)
[2020-12-05] MEDS: MEMANTINE 10 MG TAB PO SCH ×2 (09:34→21:31)
[2020-12-05] MEDS: PANTOPRAZOLE 40 MG TABLET PO SCH (09:34)
[2020-12-05] MEDS: CHOLECALCIFEROL 25 MCG (1000 IU) TABLET PO SCH (09:35)
[2020-12-05] MEDS: APIXABAN 2.5 MG TABLET PO SCH ×2 (09:35→21:30)
[2020-12-05] MEDS: ASPIRIN 81 MG PO SCH (09:35)
[2020-12-05 09:44] LABS: African American GFR (CKD) 77.5 (60.0-200.0); Albumin 3.4 g/dL (3.80-4.90); Albumin/Globulin Ratio 1.7 (1.60-3.17); Anion Gap 9.9 mmol/L (4.00-12.00); Calcium 8.7 mg/dL (8.7-10.3); Carbon Dioxide 26.1 mmol/L (21.6-31.8); Non-African American GFR(CKD) 66.9 (60.0-200.0); Potassium 4.1 mmol/L (3.5-5.5); Total Bilirubin 0.5 mg/dL (0.2-1.2); Total Protein 5.4 g/dL (6.2-8.2)
[2020-12-05 09:45] LABS: Basophils # (A) 0.06 X 10*3/uL (0.00-0.10); Basophils % (A) 0.7 %; Eosinophils % (A) 4.5 %; HCT 40.8 % (39.6-50.0); HGB 13.2 g/dL (13.0-17.0); Lymphocytes # (A) 1.48 X 10*3/uL (0.90-5.00); Lymphocytes % (A) 16.8 %; MCH 31.1 pg (27.0-32.0); MCHC 32.4 g/dL (32.0-37.0); MCV 96.2 fL (80.0-97.0); Mean Platelet Volume 10.8 fL (9.5-12.2); Neutrophils % (A) 69.3 %; Platelet Count 218 X 10*3/uL (140-440); RBC 4.24 X 10*6/uL (4.40-5.60); RDW 14.9 % (11.5-14.5)
--- NOTE | 2020-12-05 13:40 | P.CONS ---
History of Present Illness - Reason for Consult Consult date: 12/05/20 wound care - History of Present Illness This is an 89-year-old patient being seen by the wound care center on [address] for nonhealing pressure ulcer to the right calcaneus lateral aspect. Patient developed a pressure ulcer while he was hospitalized at [facility] in September. His family and visiting nurses were utilizing DuoDERM with Neosporin to the site. The ulceration continues to worsen. Right calcaneus lateral as pect ulceration is a stage II pressure ulcer with fatty layer exposure significant amount of slough and minimal granulation seen within the wound bed wound edges are attached to the wound base no tunneling or undermining noted. Moderate amount of serous drainage to the site. Patient has medical history significant for heart failure and memory impairment. Patient is a former smoker denies diabetes. Patient to be discharged to a rehab facility. Review Of Systems: Constitutional: No fever, no chills, no night sweats. No weight change. No weakness, fatigue or lethargy. No daytime sleepiness. Integumentary:reports wounds, no lesions. No rash or pruritus. No unusual bruising. No change in hair or nails. Physical exam: General Appearance: Alert, cooperative, no distress, appears stated age. Skin: See HPI all other Skin color, texture, tugor normal, no rashes or lesions. Neurologic: Alert oriented x3 Assessment/plan: 1. Stage II pressure ulcer right calcaneus: Apply honey alginate, saline moistened gauze, foam, rolled gauze secured with paper tape. Utilize foam heel protectors. Thank you for the consultation any questions contact the wound care center DNP note has been reviewed and discussed with Dr. Spencer and the impression and plan of care has been directed as dictated. Past Medical History Past Medical History: Heart Failure, Memory Impairment Additional Past Medical History / Comment(s): prostate cancer, eliquis after pacemaker put in, low heart rate is why he needed pacemaker, right heel pressure ulcer, bruises easily from blood thinner History of Any Multi-Drug Resistant Organisms: None Reported Past Surgical History: Cholecystectomy, Pacemaker, Prostate Surgery Additional Past Surgical History / Comment(s): bilat knee replacements, shoulder surgery, carpal tunnel on right hand. Past Anesthesia/Blood Transfusion Reactions: No Reported Reaction Type of Cardiac Device: Permanent Pacemaker Device Placement Date:: 2019 Past Psychological History: Anxiety Additional Psychological History / Comment(s): hallucinating before on seroquel Smoking Status: Former smoker Past Alcohol Use History: None Reported Past Drug Use History: None Reported - Past Family History Father Additional Family Medical History / Comment(s): emphysema Medications and Allergies Home Medications Medication Instructions Recorded Confirmed Type Cholecalciferol [Vitamin D3 (25 2,000 unit PO DAILY 04/20/20 12/02/20 History Mcg = 1000 Iu)] Apixaban [Eliquis] 2.5 mg PO BID 12/02/20 12/02/20 History Docusate [Colace] 100 mg PO DAILY PRN 12/02/20 12/02/20 History Furosemide [Lasix] 20 mg PO DAILY PRN 12/02/20 12/02/20 History Memantine HCl 10 mg PO BID 12/02/20 12/02/20 History Metoprolol Succinate [Toprol XL] 25 mg PO DAILY 12/02/20 12/02/20 History Nitrofurantoin Macrocrystal 100 mg PO Q12H 12/02/20 12/02/20 History [Nitrofurantoin] Pramipexole [Mirapex] 0.5 mg PO HS 12/02/20 12/02/20 History QUEtiapine [SEROquel] 50 mg PO HS 12/02/20 12/02/20 History Tamsulosin HCl [Flomax] 0.4 mg PO DAILY 12/02/20 12/02/20 History Allergies Allergy/AdvReac Type Severity Reaction Status Date / Time No Known Allergies Allergy Verified 12/02/20 19:57 Physical Exam Vitals: Vital Signs Temp Pulse Resp BP Pulse Ox 12/05/20 11:00 97.7 F 60 20 142/75 97 12/05/20 08:00 60 20 12/05/20 05:30 98.1 F 59 L 20 129/63 96 12/04/20 20:20 98.2 F 60 20 143/77 98 Intake and Output 12/04/20 12/05/20 12/05/20 22:59 06:59 14:59 Intake Total 200 200 240 Output Total 900 1100 700 Balance -700 -900 -460 Intake: Intake, IV Titration 200 200 Amount Ampicillin-Sulbactam 3 gm 200 200 In Sodium Chloride 0.9% 100 ml @ 200 mls/hr IVPB Q6HR [facility] Rx#:[id number] Oral 240 Output: Urine 900 1100 700 Uretheral (Centeno) 1100 200 Other: Voiding Method Indwelling Catheter Indwelling Catheter Weight 78.5 kg Results CBC & Chem 7: 12/05/20 05:12 12/05/20 05:12 Labs: Abnormal Lab Results - Last 24 Hours (Table) 12/05/20 12/05/20 Range/Units 05:12 05:12 RBC 4.24 L (4.40-5.60) X 10*6/uL RDW 14.9 H (11.5-14.5) % Immature Gran # 0.06 H (0.00-0.04) X 10*3/uL Eosinophils # 0.40 H (0.04-0.35) X 10*3/uL BUN/Creatinine Ratio 22.00 H (12.00-20.00) Ratio Total Protein 5.4 L (6.2-8.2) g/dL Albumin 3.40 L (3.80-4.90) g/dL Microbiology - Last 24 Hours (Table) 12/02/20 18:11 Urine Culture - Final Urine,Voided Enterococcus faecalis 12/02/20 18:42 Blood Culture - Preliminary Blood No Growth after 48 hours 12/02/20 18:41 Blood Culture - Preliminary Blood No Growth after 48 hours Assessment and Plan (1) Pressure ulcer of right heel, stage 2 Current Visit: Yes Status: Acute Code(s): L89.612 - PRESSURE ULCER OF RIGHT HEEL, STAGE 2 SNOMED Code(s): 954375304
[2020-12-05] MEDS: QUEtiapine 50 MG TAB PO SCH (21:31)
[2020-12-05] MEDS: PRAMIPEXOLE 0.5 MG TAB PO SCH (21:31)
[2020-12-06] MEDS: AMPICILLIN-SULBACTAM 3 GM in SODIUM CHLORIDE 0.9% 100 ML IVPB SCH ×4 (00:08→16:47)
--- NOTE | 2020-12-06 03:37 | PN ---
PROGRESS NOTE DATE OF SERVICE: 12/05/2020 REASON FOR FOLLOWUP: Enterococcus faecalis urinary tract infection. INTERVAL HISTORY: Patient is currently afebrile. Patient is breathing comfortably. The patient denies having any chest pain, shortness of breath, cough, abdominal pain or diarrhea. PHYSICAL EXAMINATION: Blood pressure 143/79, pulse of 70, temperature 99.5. He is 95% on room air. General description: The patient is an elderly male lying in bed in no distress. Respiratory system: Unlabored breathing, clear to auscultation anteriorly. Heart S1, S2. Regular rate and rhythm. Abdomen soft, no tenderness. LABS: Hemoglobin 13.3, white count 8.8, BUN of 22, creatinine 1.0. DIAGNOSTIC IMPRESSION AND PLAN: Patient with Enterococcus faecalis urinary tract infection covered with Unasyn to continue to finish therapy with oral Augmentin. Continue supportive care. MMODL / IJN: [id number] /
[2020-12-06] MEDS: MEMANTINE 10 MG TAB PO SCH (08:10)
[2020-12-06] MEDS: ASPIRIN 81 MG PO SCH (08:10)
[2020-12-06] MEDS: OXYBUTYNIN XL 5 MG TAB.ER.24 PO SCH (08:10)
[2020-12-06] MEDS: PANTOPRAZOLE 40 MG TABLET PO SCH (08:10)
[2020-12-06] MEDS: TAMSULOSIN 0.4 MG CAP.ER.24H PO SCH (08:10)
[2020-12-06] MEDS: CHOLECALCIFEROL 25 MCG (1000 IU) TABLET PO SCH (08:10)
[2020-12-06] MEDS: APIXABAN 2.5 MG TABLET PO SCH (08:10)
[2020-12-06 13:32] VITALS: BMI 27.3
[2020-12-06 13:44] VITALS: BP 141/60; PULSE 60; RESP 16; TEMP 98.2
--- NOTE | 2020-12-06 14:32 | P.DS ---
Providers Date of admission: 12/02/20 19:13 Expected date of discharge: 12/06/20 Attending physician: Bubba Kaufman Consults: 12/03/20 10:57 Consult Physician Routine Consulting Provider: Torres Lujan Consult Reason/Comments: UTI Do you want consulting provider notified?: Yes Primary care physician: Bubba Kaufman [facility] Hospital Course: Final Diagnoses: -Acute toxic Encephalopathy secondary to acute enterococcus faecalis UTI related to urinary retention 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 Patient has a Centeno catheter and will be discharged with a Centeno catheter. -History of prostate cancer, history of surgical intervention -Dementia, possibly advanced vascular or senile dementia -History of Third-degree heart block history, status post permanent pacemaker -Chronic CHF, diastolic dysfunction, EF 55-60% -Restless leg syndrome -Patient is on anticoagulation, etiology unclear, possibly chronic atrial fibrillation. -Generalized deconditioning: Age-related muscle atrophy. -Former nicotine dependence -Anxiety -Nonhealing Pressure ulcer of right heel, lateral aspect, stage II, present on admission - [place], wears hearing aids Hospital course this is a pleasantly confused 89-year-old gentleman, hard of hearing, does not have his hearing aids with him currently, admitted with mental status changes, acute UTI and multiple other medical issues. Urine culture reported enterococcus faecalis and maintained on Unasyn. Significant clinical improvement. Cleared by infectious disease for discharge on 7 days of Augmentin. Patient will be discharged to [facility] subacute rehab today in a stable condition with guarded prognosis. PHYSICAL EXAM: GENERAL: Alert and oriented 2, Sitting up in chair, NAD CARDIOVASCULAR: S1, S2 regular.No murmur RESPIRATION: Breath sounds diminished in the bases. ABDOMEN: Soft, nontender . No organomegaly ,Bowel sounds heard. NERVOUS SYSTEM: Cranial N 2-12 grossly normal.Diffuse weakness ,No focal deficits. Skin: Warm and dry, no rash.right heel dressing clean dry and intact The impression and plan of care has been dictated as directed. : I performed a history and examination of this patient, discussed the same with the dictator. I agree with the dictator's note ,documented as a scribe. Any additional findings or plans will be noted. Patient Condition at Discharge: Stable Plan - Discharge Summary Discharge Rx Participant: Yes New Discharge Prescriptions: New Aspirin 81 mg PO DAILY chew Lactulose [Cephulac] 20 gm PO BID PRN ml PRN Reason: Constipation Oxybutynin Xl [Ditropan XL] 5 mg PO DAILY tab.er.24 Pantoprazole [Protonix] 40 mg PO DAILY tablet. Amoxicillin/Potassium Clav [Augmentin 875-125 Tablet] 1 tab PO Q12HR 7 Days #14 tab Continue Cholecalciferol [Vitamin D3 (25 Mcg = 1000 Iu)] 2,000 unit PO DAILY Tamsulosin HCl [Flomax] 0.4 mg PO DAILY QUEtiapine [SEROquel] 50 mg PO HS Pramipexole [Mirapex] 0.5 mg PO HS Metoprolol Succinate [Toprol XL] 25 mg PO DAILY Memantine HCl 10 mg PO BID Furosemide [Lasix] 20 mg PO DAILY PRN PRN Reason: Edema Apixaban [Eliquis] 2.5 mg PO BID Docusate [Colace] 100 mg PO DAILY PRN PRN Reason: Constipation Discontinued Nitrofurantoin Macrocrystal [Nitrofurantoin] 100 mg PO Q12H Discharge Medication List Cholecalciferol [Vitamin D3 (25 Mcg = 1000 Iu)] 2,000 unit PO DAILY 04/20/20 [History] Apixaban [Eliquis] 2.5 mg PO BID 12/02/20 [History] Docusate [Colace] 100 mg PO DAILY PRN 12/02/20 [History] Furosemide [Lasix] 20 mg PO DAILY PRN 12/02/20 [History] Memantine HCl 10 mg PO BID 12/02/20 [History] Metoprolol Succinate [Toprol XL] 25 mg PO DAILY 12/02/20 [History] Pramipexole [Mirapex] 0.5 mg PO HS 12/02/20 [History] QUEtiapine [SEROquel] 50 mg PO HS 12/02/20 [History] Tamsulosin HCl [Flomax] 0.4 mg PO DAILY 12/02/20 [History] Amoxicillin/Potassium Clav [Augmentin 875-125 Tablet] 1 tab PO Q12HR 7 Days #14 tab 12/06/20 [Rx] Aspirin 81 mg PO DAILY chew 12/06/20 [Rx] Lactulose [Cephulac] 20 gm PO BID PRN ml 12/06/20 [Rx] Oxybutynin Xl [Ditropan XL] 5 mg PO DAILY tab.er.24 12/06/20 [Rx] Pantoprazole [Protonix] 40 mg PO DAILY tablet. 12/06/20 [Rx] Follow up Appointment(s)/Referral(s): Bubba Kaufman DO [Primary Care Provider] - 3 Days Activity/Diet/Wound Care/Special Instructions: [facility] [phone] [place] Wound care as recommended per wound care team. Foam heel protectors CBC, BMP in 3 days
== END 2020-12-06 19:26 | DRG 689 ==
LOC: EC 16:45 → 5NMEDONC 19:13
PROVIDERS: ADMIT Family Medicine; ATTEND Family Medicine
DX: N39.0 Urinary tract infection, site not specified (principal); G92 Toxic encephalopathy; E87.2 Acidosis; K56.7 Ileus, unspecified; I44.2 Atrioventricular block, complete; I48.20 Chronic atrial fibrillation, unspecified; I50.32 Chronic diastolic (congestive) heart failure; L89.612 Pressure ulcer of right heel, stage 2; E86.0 Dehydration; F01.50 Vascular dementia, unspecified severity, without behavioral disturbance, psychotic disturbance, mood disturbance, and anxiety; Z20.822 Contact with and (suspected) exposure to COVID-19; R62.7 Adult failure to thrive; B95.2 Enterococcus as the cause of diseases classified elsewhere; I35.8 Other nonrheumatic aortic valve disorders; R33.9 Retention of urine, unspecified; R32 Unspecified urinary incontinence; G25.81 Restless legs syndrome; M19.90 Unspecified osteoarthritis, unspecified site; F41.9 Anxiety disorder, unspecified; H91.90 Unspecified hearing loss, unspecified ear; Z79.01 Long term (current) use of anticoagulants; Z79.82 Long term (current) use of aspirin; Z79.899 Other long term (current) drug therapy; Z87.891 Personal history of nicotine dependence; Z95.0 Presence of cardiac pacemaker; Z85.46 Personal history of malignant neoplasm of prostate; Z97.4 Presence of external hearing-aid; Z90.49 Acquired absence of other specified parts of digestive tract; Z90.79 Acquired absence of other genital organ(s); Z96.653 Presence of artificial knee joint, bilateral; Z87.39 Personal history of other diseases of the musculoskeletal system and connective tissue; Z98.890 Other specified postprocedural states; Z82.5 Family history of asthma and other chronic lower respiratory diseases; M62.50 Muscle wasting and atrophy, not elsewhere classified, unspecified site
CPT/HCPCS: 36415; 70450; 71046; 74018; 80053; 81001; 82140; 82550; 83605; 83735; 83880; 84484; 85025; 85610; 87040; 87077; 87086; 87186; 87635; 93005; 94760; 96361; 96374; 99285

== ENCOUNTER → 2020-12-27 | Outpatient (CLI) | payer MEDICARE, BC ==
--- NOTE | 2020-12-27 15:57 | US ---
EXAMINATION TYPE: US venous doppler duplex LE RT DATE OF EXAM: 12/27/2020 3:07 PM COMPARISON: NONE CLINICAL HISTORY: L89.613 PRES ULCER S3 RT HEEL - WANTS BILAT STUDY. Order is for right heel pressure sore for venous duplex. Limited venous duplex due to right leg constant spasms and leg flexion. SIDE PERFORMED: Right TECHNIQUE: The lower extremity deep venous system is examined utilizing real time linear array sonog [place] with graded compression, doppler sonography and color-flow sonography. VESSELS IMAGED: Common Femoral Vein Deep Femoral Vein Greater Saphenous Vein * Femoral Vein Popliteal Vein Small Saphenous Vein * Proximal Calf Veins (* superficial vessels) Right Leg: Negative for DVT and was assessed as patient tolerated US. Unable to assess for venous in sufficiency for Wound Care Patient due to constant patient motion. Edema channels are noted right ank le. IMPRESSION: 1. Right lower extremity ultrasound negative for deep venous thrombosis. 2. Prominent soft tissue edema at the lower extremity. 3. Due to patient's discomfort, exam is limited to the right lower extremity and reflux evaluation is nondiagnostic.
--- NOTE | 2020-12-28 10:09 | P.ARTDOP ---
Arterial Doppler LOWER EXTREMITY ARTERIAL DOPPLER: DATE OF SERVICE: 12/27/2020 Reason for study: Right heel ulcer. Doppler waveforms: Multiphasic at both femoral levels. Both popliteals and posterior tibials are atypical. Dorsalis pedis are both monophasic. Toe waveforms significantly blunted.. Pulse volume recording: []. Pressure gradients: Bilateral gradients noted.. Ankle-brachial indices: 0.55 on the right and 0.72 on the left. 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 Consider vascular specialty consultation..
== END | disposition home or self-care (01) ==
LOC: RADUSWWP 13:41
PROVIDERS: ATTEND Family Medicine
DX: R60.0 Localized edema (principal); L89.613 Pressure ulcer of right heel, stage 3; F03.90 Unspecified dementia, unspecified severity, without behavioral disturbance, psychotic disturbance, mood disturbance, and anxiety; I48.0 Paroxysmal atrial fibrillation; I50.32 Chronic diastolic (congestive) heart failure; Z79.01 Long term (current) use of anticoagulants
CPT/HCPCS: 93922

== ENCOUNTER 2021-05-02 09:39 | Inpatient (IN) | payer MEDICARE, BC ==
[2021-05-02] MEDS ORDERED: SODIUM CHLORIDE 0.9% 1,000 ML IV STA (10:17)
[2021-05-02] MEDS ORDERED: ACETAMINOPHEN TAB 500 MG TAB PO STA (10:17)
--- NOTE | 2021-05-02 10:36 | ED ---
Fever HPI - General Chief Complaint: Fever Stated Complaint: UTI, abscess Time Seen by Provider: 05/02/21 09:45 Source: EMS Mode of arrival: EMS Limitations: altered mental status, physical limitation - History of Present Illness Initial Comments: Patient is an 89-year-old male with history of dementia, heart failure, on eliquis, presenting to the emergency department via EMS for having a fever, possible UTI, and an abscess on his right gluteal. Home care nurse today stated his temperature is 102 so she called EMS for evaluation. She does have de mentia at baseline, home care nurse was concerned that he seems a little bit more altered than normal. He shouldn't is a poor historian, no other family to help with history. No known antibiotics at this time. She did arrive febrile 102.3, pulse 75, blood pressure is normal, 90% in room air, did put him on 3 L and he is at 93%. - Related Data Home Medications Medication Instructions Recorded Confirmed Cholecalciferol [Vitamin D3 (25 2,000 unit PO DAILY 04/20/20 12/02/20 Mcg = 1000 Iu)] Apixaban [Eliquis] 2.5 mg PO BID 12/02/20 12/02/20 Docusate [Colace] 100 mg PO DAILY PRN 12/02/20 12/02/20 Furosemide [Lasix] 20 mg PO DAILY PRN 12/02/20 12/02/20 Memantine HCl 10 mg PO BID 12/02/20 12/02/20 Metoprolol Succinate [Toprol XL] 25 mg PO DAILY 12/02/20 12/02/20 Pramipexole [Mirapex] 0.5 mg PO HS 12/02/20 12/02/20 QUEtiapine [SEROquel] 50 mg PO HS 12/02/20 12/02/20 Tamsulosin HCl [Flomax] 0.4 mg PO DAILY 12/02/20 12/02/20 Previous Rx's Medication Instructions Recorded Amoxicillin/Potassium Clav 1 tab PO Q12HR 7 Days #14 tab 12/06/20 [Augmentin 875-125 Tablet] Aspirin 81 mg PO DAILY chew 12/06/20 Lactulose [Cephulac] 20 gm PO BID PRN ml 12/06/20 Oxybutynin Xl [Ditropan XL] 5 mg PO DAILY tab.er.24 12/06/20 Pantoprazole [Protonix] 40 mg PO DAILY tablet. 12/06/20 Allergies Allergy/AdvReac Type Severity Reaction Status Date / Time No Known Allergies Allergy Verified 05/02/21 09:58 Review of Systems ROS Statement: Those systems with pertinent positive or pertinent negative responses have been documented in the HPI. ROS Other: All systems not noted in ROS Statement are negative. Past Medical History Past Medical History: Heart Failure, Dementia, Memory Impairment Additional Past Medical History / Comment(s): prostate cancer, eliquis after pacemaker put in, low heart rate is why he needed pacemaker, right heel pressure ulcer, bruises easily from blood thinner History of Any Multi-Drug Resistant Organisms: None Reported Past Surgical History: Cholecystectomy, Pacemaker, Prostate Surgery Additional Past Surgical History / Comment(s): bilat knee replacements, shoulder surgery, carpal tunnel on right hand. Past Anesthesia/Blood Transfusion Reactions: No Reported Reaction Type of Cardiac Device: Permanent Pacemaker Device Placement Date:: 2019 Past Psychological History: Anxiety Smoking Status: Former smoker Past Alcohol Use History: None Reported Past Drug Use History: None Reported - Past Family History Father Additional Family Medical History / Comment(s): emphysema General Exam - General Exam Comments Initial Comments: GENERAL: Patient is well-developed and well-nourished. Patient is nontoxic and in no acute distress. HEAD: Atraumatic, normocephalic. EYES: Pupils equal round and reactive to light, extraocular movements intact, sclera anicteric, conjunctiva are normal. Eyelids were unremarkable. ENT: TMs normal, nares patent, oropharynx clear without exudates. Moist mucous mem branes. NECK: Normal range of motion, supple without lymphadenopathy or JVD. LUNGS: Unlabored respirations. Breath sounds clear to auscultation bilaterally and equal. No wheezes rales or rhonchi. HEART: Regular rate and rhythm without murmurs, rubs or gallops. ABDOMEN: Soft, nontender, normoactive bowel sounds. No guarding, no rebound. No masses appreciated. : Deferred MUSCULOSKELETAL: Normal extremities with adequate strength and normal range of motion, no pitting or edema. No clubbing or cyanosis. NEUROLOGICAL: Patient is alert and oriented x 1-2, does have history of dementia. Cranial nerves II through XII grossly intact. Symmetrical smile. PSYCH: Normal mood, normal affect. SKIN: Warm, Dry, normal turgor, no rashes. Patient has an approximate 3 cm in diameter decubitus ulcer of the right glute, stage 2-3, some mild surrounding erythema. Limitations: altered mental status, physical limitation Course Vital Signs 05/02/21 05/02/21 05/02/21 09:52 09:58 11:31 Temperature 102.3 F H Pulse Rate 75 72 Respiratory 18 22 Rate Blood Pressure 137/63 134/64 O2 Sat by Pulse 90 L 93 L 91 L Oximetry Medical Decision Making - Medical Decision Making Patient is an 89-year-old male with history of dementia, heart failure on eliquis, sent in via EMS for fever, possible UTI and an abscess on his right gluteal. He is febrile on arrival 102.3, rest of vitals within acceptable limits. Patient's white count is 22.9, coags are within normal limits, lactic acid is elevated at 2.3, urine is positive for nitrates, large amount of wbc's, urine culture is pending. Blood cultures are also pending. Patient was given Tylenol and fluids for his fever, he will be admitted for UTI, wound care. Patient's daughter is agreeable to this plan of care. Patient accepted by Dr. Jenkins. Case discussed with Dr. Parra. - Lab Data Result diagrams: 05/02/21 10:20 05/02/21 10:20 Lab Results 05/02/21 05/02/21 05/02/21 Range/Units 10:20 10:20 10:20 WBC 22.9 H (3.8-10.6) k/uL RBC 4.47 (4.30-5.90) m/uL Hgb 13.4 (13.0-17.5) gm/dL Hct 41.2 (39.0-53.0) % MCV 92.4 (80.0-100.0) fL MCH 29.9 (25.0-35.0) pg MCHC 32.4 (31.0-37.0) g/dL RDW 14.9 (11.5-15.5) % Plt Count 326 (150-450) k/uL MPV 7.9 Neutrophils % 95 % Lymphocytes % 2 % Monocytes % 3 % Eosinophils % 1 % Basophils % 0 % Neutrophils # 21.6 H (1.3-7.7) k/uL Lymphocytes # 0.4 L (1.0-4.8) k/uL Monocytes # 0.6 (0-1.0) k/uL Eosinophils # 0.1 (0-0.7) k/uL Basophils # 0.1 (0-0.2) k/uL PT (9.0-12.0) sec INR (<1.2) APTT (22.0-30.0) sec Sodium 135 L (137-145) mmol/L Potassium 5.0 (3.5-5.1) mmol/L Chloride 102 (98-107) mmol/L Carbon Dioxide 23 (22-30) mmol/L Anion Gap 10 mmol/L BUN 20 (9-20) mg/dL Creatinine 0.77 (0.66-1.25) mg/dL Est GFR (CKD-EPI)AfAm >90 (>60 ml/min/1.73 sqM) Est GFR (CKD-EPI)NonAf 81 (>60 ml/min/1.73 sqM) Glucose 152 H (74-99) mg/dL Plasma Lactic Acid Omar (0.7-2.0) mmol/L Calcium 8.4 (8.4-10.2) mg/dL Total Bilirubin 1.1 (0.2-1.3) mg/dL AST 43 (17-59) U/L ALT 19 (4-49) U/L Alkaline Phosphatase 100 (38-126) U/L C-Reactive Protein 17.8 H (<1.0) mg/dL Total Protein 6.6 (6.3-8.2) g/dL Albumin 3.1 L (3.5-5.0) g/dL Urine Color Yellow Urine Appearance Turbid (Clear) Urine pH 5.5 (5.0-8.0) Ur Specific [place] 1.020 (1.001-1.035) Urine Protein 2+ H (Negative) Urine Glucose (UA) Negative (Negative) Urine Ketones Negative (Negative) Urine Blood Large H (Negative) Urine Nitrite Positive (Negative) Urine Bilirubin Negative (Negative) Urine Urobilinogen 2.0 (<2.0) mg/dL Ur Leukocyte Esterase Large H (Negative) Urine RBC >182 H (0-5) /hpf Urine WBC >182 H (0-5) /hpf Ur Squamous Epith Cells 3 (0-4) /hpf Urine Bacteria Many H (None) /hpf Urine Mucus Rare H (None) /hpf 05/02/21 05/02/21 Range/Units 10:20 10:20 WBC (3.8-10.6) k/uL RBC (4.30-5.90) m/uL Hgb (13.0-17.5) gm/dL Hct (39.0-53.0) % MCV (80.0-100.0) fL MCH (25.0-35.0) pg MCHC (31.0-37.0) g/dL RDW (11.5-15.5) % Plt Count (150-450) k/uL MPV Neutrophils % % Lymphocytes % % Monocytes % % Eosinophils % % Basophils % % Neutrophils # (1.3-7.7) k/uL Lymphocytes # (1.0-4.8) k/uL Monocytes # (0-1.0) k/uL Eosinophils # (0-0.7) k/uL Basophils # (0-0.2) k/uL PT 12.1 H (9.0-12.0) sec INR 1.2 H (<1.2) APTT 25.3 (22.0-30.0) sec Sodium (137-145) mmol/L Potassium (3.5-5.1) mmol/L Chloride (98-107) mmol/L Carbon Dioxide (22-30) mmol/L Anion Gap mmol/L BUN (9-20) mg/dL Creatinine (0.66-1.25) mg/dL Est GFR (CKD-EPI)AfAm (>60 ml/min/1.73 sqM) Est GFR (CKD-EPI)NonAf (>60 ml/min/1.73 sqM) Glucose (74-99) mg/dL Plasma Lactic Acid Omar 2.3 H* (0.7-2.0) mmol/L Calcium (8.4-10.2) mg/dL Total Bilirubin (0.2-1.3) mg/dL AST (17-59) U/L ALT (4-49) U/L Alkaline Phosphatase (38-126) U/L C-Reactive Protein (<1.0) mg/dL Total Protein (6.3-8.2) g/dL Albumin (3.5-5.0) g/dL Urine Color Urine Appearance (Clear) Urine pH (5.0-8.0) Ur Specific [place] (1.001-1.035) Urine Protein (Negative) Urine Glucose (UA) (Negative) Urine Ketones (Negative) Urine Blood (Negative) Urine Nitrite (Negative) Urine Bilirubin (Negative) Urine Urobilinogen (<2.0) mg/dL Ur Leukocyte Esterase (Negative) Urine RBC (0-5) /hpf Urine WBC (0-5) /hpf Ur Squamous Epith Cells (0-4) /hpf Urine Bacteria (None) /hpf Urine Mucus (None) /hpf Disposition Clinical Impression: Fever, Leukocytosis, UTI (urinary tract infection), Decubitus ulcer Disposition: ADMITTED IP TO THIS [facility] Condition: Stable Referrals: Bubba Kaufman DO [Primary Care Provider] - 1-2 days Decision Date: 05/02/21 Decision Time: 12:56
[2021-05-02 10:49] LABS: Basophils # (A) 0.1 k/uL (0-0.2); Basophils % (A) 0 %; Eosinophils # (A) 0.1 k/uL (0-0.7); Eosinophils % (A) 1 %; HCT 41.2 % (39.0-53.0); HGB 13.4 gm/dL (13.0-17.5); Lymphocytes # (A) 0.4 k/uL (1.0-4.8); Lymphocytes % (A) 2 %; MCH 29.9 pg (25.0-35.0); MCHC 32.4 g/dL (31.0-37.0); MCV 92.4 fL (80.0-100.0); Mean Platelet Volume 7.9; Monocytes # (A) 0.6 k/uL (0-1.0); Monocytes % (A) 3 %; Neutrophils # (A) 21.6 k/uL (1.3-7.7); Neutrophils % (A) 95 %; Platelet Count 326 k/uL (150-450); RBC 4.47 m/uL (4.30-5.90); RDW 14.9 % (11.5-15.5); WBC 22.9 k/uL (3.8-10.6)
[2021-05-02 10:58] LABS: INR 1.2 (<1.2); Partial Thromboplastin Time 25.3 sec (22.0-30.0); Prothrombin Time 12.1 sec (9.0-12.0)
[2021-05-02] MEDS ORDERED: VANCOMYCIN IV PER PHARMACY 1 EACH MISC MISCELLANE PRN (11:02)
[2021-05-02] MEDS ORDERED: cefTRIAXone IN SWFI 1,000 MG/10 ML SYRINGE IVP STA (11:02)
[2021-05-02 11:04] LABS: ALT 19 U/L (4-49); African American GFR (CKD) >90 (>60 ml/min/1.73 sqM); Albumin 3.1 g/dL (3.5-5.0); Anion Gap 10 mmol/L; Blood Urea Nitrogen 20 mg/dL (9-20); Calcium 8.4 mg/dL (8.4-10.2); Carbon Dioxide 23 mmol/L (22-30); Chloride 102 mmol/L (98-107); Glucose 152 mg/dL (74-99); Non-African American GFR(CKD) 81 (>60 ml/min/1.73 sqM); Sodium 135 mmol/L (137-145); Total Bilirubin 1.1 mg/dL (0.2-1.3); Total Protein 6.6 g/dL (6.3-8.2)
[2021-05-02] MEDS ORDERED: VANCOMYCIN 1,500 MG in SODIUM CHLORIDE 0.9% 250 ML IVPB STA (11:05)
[2021-05-02 11:17] LABS: AST 43 U/L (17-59); Alkaline Phosphatase 100 U/L (38-126); C Reactive Protein 17.8 mg/dL (<1.0)
[2021-05-02 11:59] LABS: Appearance,Urine Turbid (Clear); Bacteria,Urine Many /hpf; Bilirubin,Urine Negative (Negative); Blood,Urine Large (Negative); Color,Urine Yellow; Glucose,Urine (UA) Negative (Negative); Ketones,Urine Negative (Negative); Leukocyte Esterase,Urine Large (Negative); Mucus,Urine Rare /hpf; Nitrite,Urine Positive (Negative); PH, Urine 5.5 (5.0-8.0); Protein,Urine 2+ (Negative); RBC,Urine >182 /hpf (0-5); Squamous Epithelial Cell,Urine 3 /hpf (0-4); WBC,Urine >182 /hpf (0-5)
[2021-05-02] MEDS ORDERED: NALOXONE 0.4 MG/ML 1 ML VIAL IV PRN (12:49)
[2021-05-02] MEDS ORDERED: ONDANSETRON 4 MG/2 ML VIAL IVP PRN (12:49)
[2021-05-02] MEDS ORDERED: LACTULOSE 20 GM/30 ML CUP PO PRN (13:20)
[2021-05-02] MEDS ORDERED: CEFEPIME 1 GM in SODIUM CHLORIDE 0.9% 50 ML IVPB ONE (14:00)
--- NOTE | 2021-05-02 14:33 | XR ---
EXAMINATION TYPE: XR chest 1V portable DATE OF EXAM: 05/02/2021 COMPARISON: Chest x-ray 12/02/2020 HISTORY: Fever, abnormal chest x-ray TECHNIQUE: Single frontal view of the chest is obtained. FINDINGS: There is a generator in the left pectoral region, leads are present in the right atrium an d ventricle. Patient is rotated. Cardiac mediastinal silhouette shows a similar appearance, heart siz e may be accentuated by technique. Aorta is dense. Strand-like densities are present within the lungs . No evident pneumothorax. IMPRESSION: Rotated exam. There may be underlying atelectasis, interstitial lung disease, difficult to exclude pneumonia. Consider follow-up PA and lateral chest x-ray for better evaluation.
[2021-05-02] MEDS: SODIUM CHLORIDE 0.9% 1,000 ML IV SCH ×2 (15:07→20:59)
--- NOTE | 2021-05-02 16:21 | P.HPIM ---
History of Present Illness H&P Date: 05/02/21 Chief Complaint: Fever History of presenting complaint: This is a 89-year-old patient who follows with visiting physicians, Dr. Walls. History is obtained by the daughter Amirah at the bedside. Had a baseline patient is uses wheelchair. 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 Macario. Patient also has a home care nurse. Patient developed a fever up to 102.3 with the last 24 hours. Patient has a gluteal abscess on the right buttock. Patient also is a Centeno catheter since September of this year. Patient's Centeno catheter was changed yesterday. Patient is able to recognize his daughter. But not able to give too much of any meaningful history. His appetite is okay. Incontinent of stool. No respiratory symptoms reported. No diarrhea. No abdominal pain. Review of systems could not be obtained because of patient's dementia. Relevant history as above Past medical history to include: Dementia, prostate cancer with surgery, third-degree heart block requiring permanent pacemaker, CHF EF of 55-60%, restless leg syndrome, generalized deconditioning, hard of hearing with hearing aids, wheelchair bound Social history: Patient is a former smoker. No alcohol. This is Dr. Macario. Uses a wheelchair. Family history: Emphysema Physical examination: VITAL SIGNS: 102.3, 75, 18, 137/63, 90% on room air GENERAL: BMI 29, laying in bed, but uncomfortable. EYES: Pupils equal. Conjunctiva normal. HEENT: External appearance of nose and ears normal, oral cavity grossly normal. NECK: JVD not raised; masses not palpable. HEART: First and second heart sounds are normal; no edema. LUNGS: Respiratory rate normal; clear to auscultation. MUSCULAR skeletal: Evidence of OA ABDOMEN: Soft, nontender, liver spleen not palpable, no masses palpable. Centeno catheter PSYCH: [Patient can tell his name, otherwise not able to attend Kris is otherwise ear DERMATOLOGICAL: Wound on the right buttock. More details in the nursing notes NEUROLOGICAL: Cranial nerves grossly intact; no facial asymmetry, power and se nsation grossly intact. LYMPHATICS: No lymph nodes palpable in the axilla and neck INVESTIGATIONS, reviewed in the clinical context: WBC 22.9 hemoglobin 13.4 platelets 326 potassium 5 BUN 20 creatinine 0.77 lactic acid 2.3 UA: Protein 2+ large leukoesterase WBC creatinine is 182, 70 to assess 3 ba cteria many Coronavirus [PCR]: Not detected Chest x-ray film personally reviewed by me-questionable interstitial prominence/cannot rule out infiltrate. Assessment and plan: -Patient presents with fever and some altered sensation likely delirium. Possible UTI secondary to Centeno catheter. Pneumonia cannot be ruled out. IV cefepime. Blood culture. Urine culture. 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 Patient started IV cefepime. Home medications resumed. IV fluids. ID consulted. Care was discussed with the daughter the bedside. Past Medical History Past Medical History: Heart Failure, Dementia, Memory Impairment Additional Past Medical History / Comment(s): prostate cancer, eliquis after pacemaker put in, low heart rate is why he needed pacemaker, right heel pressure ulcer, bruises easily from blood thinner History of Any Multi-Drug Resistant Organisms: None Reported Past Surgical History: Cholecystectomy, Pacemaker, Prostate Surgery Additional Past Surgical History / Comment(s): bilat knee replacements, shoulder surgery, carpal tunnel on right hand. Past Anesthesia/Blood Transfusion Reactions: No Reported Reaction Type of Cardiac Device: Permanent Pacemaker Device Placement Date:: 2019 Past Psychological History: Anxiety Smoking Status: Former smoker Past Alcohol Use History: None Reported Past Drug Use History: None Reported - Past Family History Father Additional Family Medical History / Comment(s): emphysema Medications and Allergies Home Medications Medication Instructions Recorded Confirmed Type Apixaban [Eliquis] 2.5 mg PO BID 12/02/20 05/02/21 History Docusate [Colace] 100 mg PO Q48H 12/02/20 05/02/21 History Furosemide [Lasix] 20 mg PO DAILY PRN 12/02/20 05/02/21 History Memantine HCl 10 mg PO BID 12/02/20 05/02/21 History Metoprolol Succinate [Toprol XL] 25 mg PO DAILY 12/02/20 05/02/21 History Pramipexole [Mirapex] 0.5 mg PO HS 12/02/20 05/02/21 History QUEtiapine [SEROquel] 50 mg PO HS 12/02/20 05/02/21 History Cholecalciferol [Vitamin D3 (25 25 mcg PO DAILY 05/02/21 05/02/21 History Mcg = 1000 Iu)] Nitrofurantoin Monohyd/M-Cryst 100 mg PO Q12HR 05/02/21 05/02/21 History [Macrobid] Allergies Allergy/AdvReac Type Severity Reaction Status Date / Time No Known Allergies Allergy Verified 05/02/21 13:33 Physical Exam Vitals: Vital Signs Temp Pulse Resp BP Pulse Ox 05/02/21 15:41 98.8 F 05/02/21 13:17 92 16 148/90 93 L 05/02/21 11:31 72 22 134/64 91 L 05/02/21 09:58 93 L 05/02/21 09:52 102.3 F H 75 18 137/63 90 L Intake and Output 05/02/21 05/02/21 05/02/21 06:59 14:59 22:59 Other: Weight 81.46 kg Results CBC & Chem 7: 05/02/21 10:20 05/02/21 10:20 Labs: Abnormal Lab Results - Last 24 Hours (Table) 05/02/21 05/02/21 05/02/21 Range/Units 10:20 10:20 10:20 WBC 22.9 H (3.8-10.6) k/uL Neutrophils # 21.6 H (1.3-7.7) k/uL Lymphocytes # 0.4 L (1.0-4.8) k/uL PT (9.0-12.0) sec INR (<1.2) Sodium 135 L (137-145) mmol/L Glucose 152 H (74-99) mg/dL Plasma Lactic Acid Omar (0.7-2.0) mmol/L C-Reactive Protein 17.8 H (<1.0) mg/dL Albumin 3.1 L (3.5-5.0) g/dL Urine Protein 2+ H (Negative) Urine Blood Large H (Negative) Ur Leukocyte Esterase Large H (Negative) Urine RBC >182 H (0-5) /hpf Urine WBC >182 H (0-5) /hpf Urine Bacteria Many H (None) /hpf Urine Mucus Rare H (None) /hpf 05/02/21 05/02/21 Range/Units 10:20 10:20 WBC (3.8-10.6) k/uL Neutrophils # (1.3-7.7) k/uL Lymphocytes # (1.0-4.8) k/uL PT 12.1 H (9.0-12.0) sec INR 1.2 H (<1.2) Sodium (137-145) mmol/L Glucose (74-99) mg/dL Plasma Lactic Acid Omar 2.3 H* (0.7-2.0) mmol/L C-Reactive Protein (<1.0) mg/dL Albumin (3.5-5.0) g/dL Urine Protein (Negative) Urine Blood (Negative) Ur Leukocyte Esterase (Negative) Urine RBC (0-5) /hpf Urine WBC (0-5) /hpf Urine Bacteria (None) /hpf Urine Mucus (None) /hpf
[2021-05-02] MEDS: APIXABAN 2.5 MG TABLET PO SCH (20:57)
[2021-05-02] MEDS: PRAMIPEXOLE 0.5 MG TAB PO SCH (20:57)
[2021-05-02] MEDS: MEMANTINE 10 MG TAB PO SCH (20:57)
[2021-05-02] MEDS: QUEtiapine 50 MG TAB PO SCH (20:58)
[2021-05-02] MEDS: CEFEPIME 1 GM in SODIUM CHLORIDE 0.9% 50 ML IVPB SCH (21:12)
[2021-05-03 03:18] LABS: African American GFR (CKD) >90 (>60 ml/min/1.73 sqM); Non-African American GFR(CKD) 86 (>60 ml/min/1.73 sqM)
[2021-05-03] MEDS: CEFEPIME 1 GM in SODIUM CHLORIDE 0.9% 50 ML IVPB SCH ×2 (03:18→20:17)
[2021-05-03 03:24] LABS: Basophils % (A) 0 %; Eosinophils # (A) 0.1 k/uL (0-0.7); Eosinophils % (A) 1 %; HCT 34.5 % (39.0-53.0); HGB 11.5 gm/dL (13.0-17.5); Lymphocytes # (A) 0.6 k/uL (1.0-4.8); Lymphocytes % (A) 4 %; MCH 30.6 pg (25.0-35.0); MCHC 33.4 g/dL (31.0-37.0); MCV 91.5 fL (80.0-100.0); Mean Platelet Volume 7.4; Monocytes # (A) 0.7 k/uL (0-1.0); Monocytes % (A) 5 %; Neutrophils # (A) 12.7 k/uL (1.3-7.7); Neutrophils % (A) 89 %; Platelet Count 258 k/uL (150-450); RBC 3.76 m/uL (4.30-5.90); RDW 15.5 % (11.5-15.5); WBC 14.3 k/uL (3.8-10.6)
[2021-05-03] MEDS ORDERED: VANCOMYCIN 1,500 MG in SODIUM CHLORIDE 0.9% 250 ML IVPB SCH (04:00)
[2021-05-03] MEDS: SODIUM CHLORIDE 0.9% 1,000 ML IV SCH ×3 (07:40→17:02)
[2021-05-03] MEDS: CHOLECALCIFEROL 25 MCG (1000 IU) TABLET PO SCH (07:49)
[2021-05-03] MEDS: METOPROLOL SUCCINATE (ER) 25 MG TAB.ER.24H PO SCH (07:50)
[2021-05-03] MEDS: OXYBUTYNIN XL 5 MG TAB.ER.24 PO SCH (07:50)
[2021-05-03] MEDS: TAMSULOSIN 0.4 MG CAP.ER.24H PO SCH (07:50)
[2021-05-03] MEDS: PANTOPRAZOLE 40 MG TABLET PO SCH (07:50)
[2021-05-03] MEDS: APIXABAN 2.5 MG TABLET PO SCH ×2 (07:50→18:56)
[2021-05-03] MEDS: ASPIRIN 81 MG PO SCH (07:50)
[2021-05-03] MEDS: MEMANTINE 10 MG TAB PO SCH ×2 (07:50→18:56)
[2021-05-03] MEDS ORDERED: HALOPERIDOL LACTATE 5 MG/ML 1 ML VIAL IM ONE (10:58)
[2021-05-03] MEDS ORDERED: LORazepam 2 MG/ML INJ IV STA (11:02)
--- NOTE | 2021-05-03 14:15 | CDI ---
Documentation Clarification Form Date: 05/03/2021 02:03:29 PM From: Selene Lewis CCS, CCDS Admit Date: 05/02/2021 12:29:00 PM Patient Name: Arie Fairchild Visit Number: [id number] Discharge Date: ATTENTION: The Clinical Documentation Specialists (CDI) and [facility] Coding Staff appreciate your assistance in clarifying documentation. Please respond to the clarification below the line at the bottom and electronically sign. The CDI & [facility] Coding staff will review the response and follow-up if needed. Please note: Queries are made part of the Legal Health Record. If you have any questions, please contact the author of this message via ITS. Dr. William Jenkins: Your patient has the documented diagnosis of unspecified CHF with an EF of 55- 60% in the 05/02 History & Physical. Additional information regarding the type of CHF is requested. History/Risk Factors per the 05/02 H/P: Dementia, Prostate Cancer treated with surgery, 3rd Degree Heart Block with Permanent Pacemaker, CHF nos, Restless Leg Syndrome, Generalized deconditioning with muscle wasting, Wheelchair bound. Former smoker. Home meds: Eliquis, Colace, Lasix 20 mg daily, Memantine, Toprol, Mirapex, Seroquel, Flomax. Clinical Indicators: Presented to the ED on 05/02 with Fever (102), possible UTI & an abscess on his right gluteal. ED Clinical Impression: Fever, Leukocytosis, UTI, Decubitus Ulcer Per 05/02 Assessment: UTI secondary to Centeno Catheter, Pneumonia cannot be ruled out. Home meds resumed. 05/02 VS: T 102.3, P 75, R 18 - 22, BP 137/63, PO 90 RA - 93 3Lnc, BMI: 29.0 05/02 LAB: WBC 22.9, Neut 21.6, Lymph 0.4; PT 12.1, INR 1.2; Na 135, Glucose 152, Lactic Acid 2.3, CRP 17.8, Albumin 3.1. BNP: not done 05/02 CXR: There may be underlying atelectasis, interstitial lung disease, difficult to exclude pneumonia. Consider follow-up PA and lateral chest x-ray for better evaluation. ECHO (Most recent 04/21/2020): Moderate concentric left ventricular hypertrophy. Left ventricular systolic function is normal with EF 55-60%. Mild aortic valve sclerosis. Mild MR/TR. Treatment 05/02: IV Na Cl 1,000 mls @ 999 mls/hr q1H, IV Rocephin 1,000 mg x1, IV Vancomycin 250 mls @ 125 mls/hr x1, IV Cefepime 50 mls @ 100 mls x1, po Eliquis. Home Lasix dose not given. In your professional opinion, can you please clarify the [acuity and type] of CHF if known? [ ] Chronic Diastolic Heart Failure [ ] Chronic Systolic & Diastolic Heart Failure [ ] Other, please specify [ ] Unable to determine (Template Last Revised: October 2020) Chronic congestive heart failure from diastolic dysfunction EF 55-60% MTDD
--- NOTE | 2021-05-03 14:26 | CDI ---
Documentation Clarification Form Date: 05/03/2021 02:17:00 PM From: Selene Lewis CCS, CCDS Admit Date: 05/02/2021 12:29:00 PM Patient Name: Arie Fairchild Visit Number: [id number] Discharge Date: ATTENTION: The Clinical Documentation Specialists (CDI) and [facility] Coding Staff appreciate your assistance in clarifying documentation. Please respond to the clarification below the line at the bottom and electronically sign. The CDI & [facility] Coding staff will review the response and follow-up if needed. Please note: Queries are made part of the Legal Health Record. If you have any questions, please contact the author of this message via ITS. Dr. William Jenkins: Per the 05/02 History & Physical, this 89 yo male with dementia, presented with fever, diagnosed with a Catheter Associated UTI. Also documented generalized deconditioning with muscle wasting, wheelchair bound. Based on this information and the findings below, is there an additional diagnosis that is clinically appropriate for this patient? History/Risk Factors per the 05/02 H/P: Dementia, Prostate Cancer treated with surgery, 3rd Degree Heart Block with Permanent Pacemaker, CHF nos, Restless Leg Syndrome, Generalized deconditioning with muscle wasting, Wheelchair bound. Former smoker. Home meds: Eliquis, Colace, Lasix 20 mg daily, Memantine, Toprol, Mirapex, Seroquel, Flomax. Clinical Indicators: Presented to the ED on 05/02 with Fever (102), possible UTI & an abscess on his right gluteal. ED Clinical Impression: Fever, Leukocytosis, UTI, Decubitus Ulcer Per 05/02 Assessment: UTI secondary to Centeno Catheter, Pneumonia cannot be ruled out. Home meds resumed. 05/02 VS: T 102.3, P 75, R 18 - 22, BP 137/63, PO 90 RA - 93 3Lnc, BMI: 29.0 05/02 LAB: WBC 22.9, Neut 21.6, Lymph 0.4; PT 12.1, INR 1.2; Na 135, Glucose 152, Lactic Acid 2.3, CRP 17.8, Total Protein 6.6, Albumin 3.1. 05/02 CXR: There may be underlying atelectasis, interstitial lung disease, difficult to exclude pneumonia. Consider follow-up PA and lateral chest x-ray for better evaluation. 05/02 BMI: 29.0 Weight 81.46 kg Height 5 ft 6 in Nursing Assessment 05/02, 05/03: Oriented to person & responds to voice, Confused. Bilateral upper & lower extremity weakness. Skin (Perineum): Maceration, Thin, Elastic, Saggy. Open wound to right groin. Sacral pressure ulcer: blackened, ecchymosis, brown. 1-2 person assist, Weak gait. Quarter size open wound left lower buttock. Diet: 5-25% meals, poor tolerance, total assist. Treatment 05/02: IV Na Cl 1,000 mls @ 999 mls/hr q1H, IV Rocephin 1,000 mg x1, IV Vancomycin 250 mls @ 125 mls/hr x1, IV Cefepime 50 mls @ 100 mls x1, po Eliquis. Home Lasix dose not given. Regular diet. Is there an additional diagnosis that is clinically appropriate for this patient? [ ] Mild Protein-Calorie Malnutrition [ ] Moderate Protein-Calorie Malnutrition [ ] Other condition, please specify [ ] Unable to Determine (Template Last Revised: November 2020) No protein calorie malnutrition MTDD
[2021-05-03] MEDS ORDERED: LORazepam 2 MG/ML INJ IV ONE (18:03)
[2021-05-03] MEDS: QUEtiapine 50 MG TAB PO SCH (19:08)
[2021-05-03] MEDS: PRAMIPEXOLE 0.5 MG TAB PO SCH (19:08)
--- NOTE | 2021-05-03 20:11 | P.PN ---
Progress Note - Text Progress Note Date: 05/03/21 Chief Complaint: Fever History of presenting complaint: This is a 89-year-old patient who follows with visiting physicians, Dr. Walls. History is obtained by the daughter Amirah at the bedside. Had a baseline patient is uses wheelchair. 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 Macario. Patient also has a home care nurse. Patient developed a fever up to 102.3 with the last 24 hours. Patient has a gluteal abscess on the right buttock. Patient also is a Centeno catheter since September of this year. Patient's Centeno catheter was changed yesterday. Patient is able to recognize his daughter. But not able to give too much of any meaningful history. His appetite is okay. Incontinent of stool. No respiratory symptoms reported. No diarrhea. No abdominal pain. Admitted with bilateral pneumonia, acute UTI with cystitis secondary to Centeno catheter. On IV cefepime. Right buttock wound. May 03: Patient does have episodes of delirium. And acting out. Has a sitter. Ativan being used when necessary. Oral intake about 25%. Daughter at the bedside. Care was discussed. Right buttock wound for debridement. Review of systems could not be obtained because of patient's dementia. Relevant history as above Active Medications Acetaminophen (Acetaminophen Tab 325 Mg Tab) 650 mg PO Q6HR PRN PRN Reason: Mild Pain or Fever > 100.5 Apixaban (Apixaban 2.5 Mg Tablet) 2.5 mg PO BID [facility]; Protocol Last Admin: 05/03/21 18:56 Dose: 2.5 mg Documented by: Aspirin (Aspirin 81 Mg) 81 mg PO DAILY [facility] Last Admin: 05/03/21 07:50 Dose: 81 mg Documented by: Cholecalciferol (Cholecalciferol 25 Mcg (1000 Iu) Tablet) 50 mcg PO DAILY [facility] Last Admin: 05/03/21 07:49 Dose: 50 mcg Documented by: Sodium Chloride (Saline 0.9%) 1,000 mls @ 130 mls/hr IV .Q7H42M [facility] Last Admin: 05/03/21 17:02 Dose: Not Given Documented by: Cefepime HCl 1 gm/ Sodium (Chloride) 50 mls @ 12.5 mls/hr IVPB Q12HR [facility] Last Admin: 05/03/21 03:18 Dose: 12.5 mls/hr Documented by: Lactulose (Lactulose 20 Gm/30 Ml Cup) 20 gm PO BID PRN PRN Reason: Constipation Last Admin: 05/03/21 07:48 Dose: 20 gm Documented by: Memantine (Memantine 10 Mg Tab) 10 mg PO BID [facility] Last Admin: 05/03/21 18:56 Dose: 10 mg Documented by: Metoprolol Succinate (Metoprolol Succinate (Er) 25 Mg Tab.Er.24h) 25 mg PO DAILY [facility] Last Admin: 05/03/21 07:50 Dose: 25 mg Documented by: Naloxone HCl (Naloxone 0.4 Mg/Ml 1 Ml Vial) 0.2 mg IV Q2M PRN PRN Reason: Opioid Reversal Ondansetron HCl (Ondansetron 4 Mg/2 Ml Vial) 4 mg IVP Q8HR PRN PRN Reason: Nausea And Vomiting Oxybutynin Chloride (Oxybutynin Xl 5 Mg Tab.Er.24) 5 mg PO DAILY [facility] Last Admin: 05/03/21 07:50 Dose: 5 mg Documented by: Pantoprazole Sodium (Pantoprazole 40 Mg Tablet) 40 mg PO DAILY@0730 [facility] Last Admin: 05/03/21 07:50 Dose: 40 mg Documented by: Pramipexole Dihydrochloride (Pramipexole 0.5 Mg Tab) 0.5 mg PO [facility] Last Admin: 05/03/21 19:08 Dose: 0.5 mg Documented by: Quetiapine Fumarate (Quetiapine 50 Mg Tab) 50 mg PO [facility] Last Admin: 05/03/21 19:08 Dose: 50 mg Documented by: Tamsulosin HCl (Tamsulosin 0.4 Mg Cap.Er.24h) 0.4 mg PO DAILY [facility] Last Admin: 05/03/21 07:50 Dose: 0.4 mg Documented by: Past medical history to include: Dementia, prostate cancer with surgery, third-degree heart block requiring permanent pacemaker, CHF EF of 55-60%, restless leg syndrome, generalized deconditioning, hard of hearing with hearing aids, wheelchair bound Social history: Patient is a former smoker. No alcohol. This is Dr. Macario. Uses a wheelchair. Family history: Emphysema Physical examination: VITAL SIGNS: 98.8, 64, 17, 1 23 x 69, 94% room air GENERAL: Laying in bed, tired EYES: Pupils equal. Conjunctiva normal. NECK: JVD not raised; masses not palpable. HEART: First and second heart sounds are normal; no edema. LUNGS: Respiratory rate increased, decreased breath sounds MUSCULAR skeletal: Evidence of OA ABDOMEN: Soft, nontender, liver spleen not palpable, no masses palpable. Centeno catheter PSYCH: [Patient can tell his name, otherwise not able to attend Kris is otherwise ear DERMATOLOGICAL: Wound on the right buttock. More details in the nursing notes INVESTIGATIONS, reviewed in the clinical context: May 03: WBC 14.3 hemoglobin 11.5 platelets 258 WBC 22.9 hemoglobin 13.4 platelets 326 potassium 5 BUN 20 creatinine 0.77 lactic acid 2.3 UA: Protein 2+ large leukoesterase WBC creatinine is 182, 70 to assess 3 bacteria many Coronavirus [PCR]: Not detected Chest x-ray film personally reviewed by me-questionable interstitial prominence/cannot rule out infiltrate. Assessment and plan: -Probable pneumonia, suspect gram-negative organism. IV cefepime. Blood culture. -Acute UTI with cystitis secondary to Centeno catheter IV cefepime. Urine culture pending -Right buttock decub wound: Slow to respond Follow with ID. 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 Continue IVs cefepime. Discussed with daughter the bedside. Prognosis guarded. Discussed with Dr. Lujan from ID. For buttock wound debridement surgeries been consulted
--- NOTE | 2021-05-03 20:42 | P.CONS ---
History of Present Illness - Reason for Consult Consult date: 05/03/21 Fever UTI sacral ulcer Requesting physician: William Jenkins - Chief Complaint Fever x 1 day - History of Present Illness Patient is 89-year-old male with a past medical history significant for dementia heart failure in this patient who did have a urinary retention requiring chronic indwelling Centeno catheter that is usually changed once a month before the catheter was last changed on Saturday that is 4 days before presentation to the hospital patient was brought to the ER yesterday morning for evaluation of fever and a possible UTI symptom has been going on for a day or 2 before presentation to the hospital patient was noticed to be slightly more confused than usual history provided mostly by the family at the bedside had no clear history of any headache patient denies having any chest pain shortness of breath or cough no abdominal pain no diarrhea patient also have a pressure ulcer to the left gluteal area they seem to have gotten worse over the last few months but not specifically the patient complaining of pain to the left gluteal area but is unable to quantify any further on presentation to the hospital patient had fever 102 degree form height no tachycardia was noted or hypoxemia patient did have white count of 22.9 with a left shift lactic acid was elevated liver enzymes are normal urine was positive for black PCR was negative chest x-ray interstitial lung disease significant Pneumonia patient was started on cefepime infectious disease was consulted for further management of antibiotic therapy Review of Systems Positive point has been mentioned in the HPI rest of the systems are negative Past Medical History Past Medical History: Heart Failure, Dementia, Memory Impairment Additional Past Medical History / Comment(s): prostate cancer, eliquis after pacemaker put in, low heart rate is why he needed pacemaker, right heel pressure ulcer, bruises easily from blood thinner History of Any Multi-Drug Resistant Organisms: None Reported Past Surgical History: Cholecystectomy, Pacemaker, Prostate Surgery Additional Past Surgical History / Comment(s): bilat knee replacements, shoulder surgery, carpal tunnel on right hand. Past Anesthesia/Blood Transfusion Reactions: No Reported Reaction Type of Cardiac Device: Permanent Pacemaker Device Placement Date:: 2019 Past Psychological History: Anxiety Smoking Status: Former smoker Past Alcohol Use History: None Reported Past Drug Use History: None Reported - Past Family History Father Additional Family Medical History / Comment(s): emphysema Mother Family Medical History: Dementia Sister(s) Family Medical History: Dementia Medications and Allergies Home Medications Medication Instructions Recorded Confirmed Type Apixaban [Eliquis] 2.5 mg PO BID 12/02/20 05/02/21 History Docusate [Colace] 100 mg PO Q48H 12/02/20 05/02/21 History Furosemide [Lasix] 20 mg PO DAILY PRN 12/02/20 05/02/21 History Memantine HCl 10 mg PO BID 12/02/20 05/02/21 History Metoprolol Succinate [Toprol XL] 25 mg PO DAILY 12/02/20 05/02/21 History Pramipexole [Mirapex] 0.5 mg PO HS 12/02/20 05/02/21 History QUEtiapine [SEROquel] 50 mg PO HS 12/02/20 05/02/21 History Cholecalciferol [Vitamin D3 (25 25 mcg PO DAILY 05/02/21 05/02/21 History Mcg = 1000 Iu)] Nitrofurantoin Monohyd/M-Cryst 100 mg PO Q12HR 05/02/21 05/02/21 History [Macrobid] Allergies Allergy/AdvReac Type Severity Reaction Status Date / Time No Known Allergies Allergy Verified 05/02/21 13:33 Physical Exam Vitals: Vital Signs Temp Pulse Pulse Resp BP BP Pulse Ox 05/03/21 07:22 97.1 F L 88 20 125/76 94 L 05/03/21 03:00 98.7 F 71 18 142/54 96 05/02/21 20:41 98.0 F 61 18 126/60 96 05/02/21 16:05 98.8 F 64 92 H 91/44 92 L 05/02/21 15:41 98.8 F 05/02/21 13:17 92 16 148/90 93 L 05/02/21 11:31 72 22 134/64 91 L 05/02/21 09:58 93 L 05/02/21 09:52 102.3 F H 75 18 137/63 90 L GENERAL DESCRIPTION: Elderly male lying in bed, no distress. No tachypnea or accessory muscle of respiration use. HEENT: Shows Pallor , no scleral icterus. Oral mucous membrane is dry. No pharyngeal erythema or thrush NECK: Trachea central, no thyromegaly. LUNGS: Unlabored breathing. Clear to auscultation anteriorly. No wheeze or crackle. HEART: S1, S2, regular rate and rhythm. No loud murmur ABDOMEN: Soft, no tenderness , guarding or rigidity, no organomegaly EXTREMITIES: No edema of feet. SKIN: No rash, no masses palpable. stage 3 left gluteal ulcer with slough tissue and stage 2 ulcer to the right gluteal NEUROLOGICAL: The patient is awake, alert, oriented x2, mood and affect normal. Results CBC & Chem 7: 05/03/21 02:47 05/03/21 02:47 Labs: Abnormal Lab Results - Last 24 Hours (Table) 05/02/21 05/02/21 05/02/21 Range/Units 10:20 10:20 10:20 WBC 22.9 H (3.8-10.6) k/uL RBC (4.30-5.90) m/uL Hgb (13.0-17.5) gm/dL Hct (39.0-53.0) % Neutrophils # 21.6 H (1.3-7.7) k/uL Lymphocytes # 0.4 L (1.0-4.8) k/uL ESR (0-20) mm/Hr PT (9.0-12.0) sec INR (<1.2) Sodium 135 L (137-145) mmol/L Glucose 152 H (74-99) mg/dL Plasma Lactic Acid Omar (0.7-2.0) mmol/L C-Reactive Protein 17.8 H (<1.0) mg/dL Albumin 3.1 L (3.5-5.0) g/dL Urine Protein 2+ H (Negative) Urine Blood Large H (Negative) Ur Leukocyte Esterase Large H (Negative) Urine RBC >182 H (0-5) /hpf Urine WBC >182 H (0-5) /hpf Urine Bacteria Many H (None) /hpf Urine Mucus Rare H (None) /hpf 05/02/21 05/02/21 05/02/21 Range/Units 10:20 10:20 16:46 WBC (3.8-10.6) k/uL RBC (4.30-5.90) m/uL Hgb (13.0-17.5) gm/dL Hct (39.0-53.0) % Neutrophils # (1.3-7.7) k/uL Lymphocytes # (1.0-4.8) k/uL ESR 63 H (0-20) mm/Hr PT 12.1 H (9.0-12.0) sec INR 1.2 H (<1.2) Sodium (137-145) mmol/L Glucose (74-99) mg/dL Plasma Lactic Acid Omar 2.3 H* (0.7-2.0) mmol/L C-Reactive Protein (<1.0) mg/dL Albumin (3.5-5.0) g/dL Urine Protein (Negative) Urine Blood (Negative) Ur Leukocyte Esterase (Negative) Urine RBC (0-5) /hpf Urine WBC (0-5) /hpf Urine Bacteria (None) /hpf Urine Mucus (None) /hpf 05/03/21 Range/Units 02:47 WBC 14.3 H (3.8-10.6) k/uL RBC 3.76 L (4.30-5.90) m/uL Hgb 11.5 L (13.0-17.5) gm/dL Hct 34.5 L (39.0-53.0) % Neutrophils # 12.7 H (1.3-7.7) k/uL Lymphocytes # 0.6 L (1.0-4.8) k/uL ESR (0-20) mm/Hr PT (9.0-12.0) sec INR (<1.2) Sodium (137-145) mmol/L Glucose (74-99) mg/dL Plasma Lactic Acid Omar (0.7-2.0) mmol/L C-Reactive Protein (<1.0) mg/dL Albumin (3.5-5.0) g/dL Urine Protein (Negative) Urine Blood (Negative) Ur Leukocyte Esterase (Negative) Urine RBC (0-5) /hpf Urine WBC (0-5) /hpf Urine Bacteria (None) /hpf Urine Mucus (None) /hpf Microbiology - Last 24 Hours (Table) 05/02/21 10:20 Urine Culture - Preliminary Urine,Voided Assessment and Plan Assessment: 1-patient presented to hospital with sepsis in this patient who did have fever leukocytosis elevated lactic acid source likely catheter associated tract infection in this patient who did have a chronic indwelling Centeno catheter that was changed few days before presentation to the hospital and will need to cover for enteric gram-negative with likely pathogen 2-patient with stage III left gluteal pressure ulcer with slough tissue but no significant cellulitis 3-right gluteal stage II pressure ulcer but no cellulitis (1) Sepsis Current Visit: Yes Status: Acute Code(s): A41.9 - SEPSIS, UNSPECIFIED ORGANISM SNOMED Code(s): 83497940 (2) Catheter-associated urinary tract infection Current Visit: Yes Status: Acute Code(s): T83.511A - I/I REACT D/T INDWELLING URETHRAL CATHETER, INIT; N39.0 - URINARY TRACT INFECTION, SITE NOT SPECIFIED SNOMED Code(s): 758509038 (3) Stage III pressure ulcer of left buttock Current Visit: Yes Status: Acute Code(s): L89.323 - PRESSURE ULCER OF LEFT BUTTOCK, STAGE 3 SNOMED Code(s): 27168628662073617 (4) Stage II pressure ulcer of right buttock Current Visit: Yes Status: Acute Code(s): L89.312 - PRESSURE ULCER OF RIGHT BUTTOCK, STAGE 2 SNOMED Code(s): 81422801726812275 Plan: 1-cefepime 1 g every 12 for while waiting for the culture to finalize 2-Medihoney to bilateral gluteal wound and keep the area of the pressure 3-surgical consult for debridement of the left gluteal wound We will follow on clinical condition and cultures to further adjust medication if needed Thank you for this consultation we will follow the patient along with you Time with Patient: Greater than 30
[2021-05-04] MEDS: SODIUM CHLORIDE 0.9% 1,000 ML IV SCH ×3 (01:06→17:19)
[2021-05-04] MEDS: LORazepam 2 MG/ML INJ IV PRN ×2 (04:59→19:40)
[2021-05-04] MEDS: CEFEPIME 1 GM in SODIUM CHLORIDE 0.9% 50 ML IVPB SCH ×2 (08:10→19:41)
--- NOTE | 2021-05-04 08:32 | CDI ---
Documentation Clarification Form Date: 05/04/2021 08:17:39 AM From: Selene Lewis CCS, CCDS Admit Date: 05/02/2021 12:29:00 PM Patient Name: Arie Fairchild Visit Number: [id number] Discharge Date: ATTENTION: The Clinical Documentation Specialists (CDI) and [facility] Coding Staff appreciate your assistance in clarifying documentation. Please respond to the clarification below the line at the bottom and electronically sign. The CDI & [facility] Coding staff will review the response and follow-up if needed. Please note: Queries are made part of the Legal Health Record. If you have any questions, please contact the author of this message via ITS. Dr. William Jenkins: The patient presented with the following clinical indicators: Fever (102.3), presence of Centeno Catheter which is documented as being changed once a month, has a gluteal abscess on the right buttock. Per the 05/03 Attending Progress Note: Probable pneumonia, suspect gram-negative organism. Acute UTI with Cystitis secondary to Centeno Catheter, Right buttock decub wound. Additional clarification regarding the etiology/cause of the clinical indicators is requested. 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 Former smoker. Clinical Indicators: Presented to the ED 05/02 via EMS with fever (102 per Home Care nurse) and abscess on his right gluteal. ED Clinical Impression: Fever, Leukocytosis, UTI, Decubitus Ulcer 05/02 VS: T 102.3, P 75, R 18 - 22, BP 137/63, PO 90 RA - 93 3Lnc, BMI: 29.0 05/02 LAB: WBC 22.9, Neut 21.6, Lymph 0.4; PT 12.1, INR 1.2; Na 135, Glucose 152, Lactic Acid 2.3, 1.3; CRP 17.8, Albumin 3.1 05/02 UA: Turbid, 2+ Protein, Large Blood, Large Esterase, Positive Nitrite, RBC >182, WBC >182 Treatment 05/02: IV Na Cl 1,000 mls @ 999 mls/hr q1H, IV Rocephin 1,000 mg x1, IV Vancomycin 250 mls @ 125 mls/hr x1, IV Cefepime 50 mls @ 100 mls/hr x1, IV Cefepime 50 mls @ 125 mls/hr q12H 05/03 ID Consult Impression: Sepsis, CAUTI, Stage III pressure ulcer left buttock, Stage II pressure ulcer right buttock In your professional opinion, please clarify if these findings signify any of the following conditions: [ ] Sepsis POA [ ] Due to Catheter Associated UTI [ ] Sepsis POA [ ] Due to Gram Negative Pneumonia [ ] Sepsis POA [ ] Due to Pressure Ulcer(s) [ ] Sepsis ruled out [ ] Other, please specify [ ] Unable to determine (Template Last Reviewed: October 2020) Sepsis, POA due to catheter associated UTI and pneumonia MTDD
[2021-05-04] MEDS: OXYBUTYNIN XL 5 MG TAB.ER.24 PO SCH (09:11)
[2021-05-04] MEDS: APIXABAN 2.5 MG TABLET PO SCH ×2 (09:11→19:41)
[2021-05-04] MEDS: ASPIRIN 81 MG PO SCH (09:11)
[2021-05-04] MEDS: MEMANTINE 10 MG TAB PO SCH ×2 (09:11→19:41)
[2021-05-04] MEDS: CHOLECALCIFEROL 25 MCG (1000 IU) TABLET PO SCH (09:11)
[2021-05-04] MEDS: PANTOPRAZOLE 40 MG TABLET PO SCH (09:11)
[2021-05-04] MEDS: METOPROLOL SUCCINATE (ER) 25 MG TAB.ER.24H PO SCH (09:11)
[2021-05-04] MEDS: TAMSULOSIN 0.4 MG CAP.ER.24H PO SCH (09:13)
[2021-05-04 11:32] VITALS: BMI 29.0
--- NOTE | 2021-05-04 11:47 | P.PN ---
Progress Note - Text Progress Note Date: 05/04/21 Chief Complaint: Fever History of presenting complaint: This is a 89-year-old patient who follows with visiting physicians, Dr. Walls. History is obtained by the daughter Amirah at the bedside. Had a baseline patient is uses wheelchair. 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 Macario. Patient also has a home care nurse. Patient developed a fever up to 102.3 with the last 24 hours. Patient has a gluteal abscess on the right buttock. Patient also is a Centeno catheter since September of this year. Patient's Centeno catheter was changed yesterday. Patient is able to recognize his daughter. But not able to give too much of any meaningful history. His appetite is okay. Incontinent of stool. No respiratory symptoms reported. No diarrhea. No abdominal pain. Admitted with bilateral pneumonia, acute UTI with cystitis secondary to Centeno catheter. On IV cefepime. Right buttock wound. May 03: Patient does have episodes of delirium. And acting out. Has a sitter. Ativan being used when necessary. Oral intake about 25%. Daughter at the bedside. Care was discussed. Right buttock wound for debridement. May 04: Patient continues to have episodes intermittently of agitation or delirium, multifactorial. Ativan when necessary being used. Awaiting surgical input for wound debridement. Currently sleepy. Review of systems could not be obtained because of patient's dementia. Relevant history as above Active Medications Acetaminophen (Acetaminophen Tab 325 Mg Tab) 650 mg PO Q6HR PRN PRN Reason: Mild Pain or Fever > 100.5 Apixaban (Apixaban 2.5 Mg Tablet) 2.5 mg PO BID [facility]; Protocol Last Admin: 05/04/21 09:11 Dose: 2.5 mg Documented by: Aspirin (Aspirin 81 Mg) 81 mg PO DAILY [facility] Last Admin: 05/04/21 09:11 Dose: 81 mg Documented by: Cholecalciferol (Cholecalciferol 25 Mcg (1000 Iu) Tablet) 50 mcg PO DAILY [facility] Last Admin: 05/04/21 09:11 Dose: 50 mcg Documented by: Sodium Chloride (Saline 0.9%) 1,000 mls @ 130 mls/hr IV .Q7H42M [facility] Last Admin: 05/04/21 11:19 Dose: Not Given Documented by: Cefepime HCl 1 gm/ Sodium (Chloride) 50 mls @ 12.5 mls/hr IVPB Q12HR [facility] Last Admin: 05/04/21 08:10 Dose: 12.5 mls/hr Documented by: Lactulose (Lactulose 20 Gm/30 Ml Cup) 20 gm PO BID PRN PRN Reason: Constipation Last Admin: 05/03/21 07:48 Dose: 20 gm Documented by: Lorazepam (Lorazepam 2 Mg/Ml Inj) 0.5 mg IV Q8HR PRN PRN Reason: Anxiety Last Admin: 05/04/21 04:59 Dose: 0.5 mg Documented by: Memantine (Memantine 10 Mg Tab) 10 mg PO BID [facility] Last Admin: 05/04/21 09:11 Dose: 10 mg Documented by: Metoprolol Succinate (Metoprolol Succinate (Er) 25 Mg Tab.Er.24h) 25 mg PO DAILY [facility] Last Admin: 05/04/21 09:11 Dose: 25 mg Documented by: Naloxone HCl (Naloxone 0.4 Mg/Ml 1 Ml Vial) 0.2 mg IV Q2M PRN PRN Reason: Opioid Reversal Ondansetron HCl (Ondansetron 4 Mg/2 Ml Vial) 4 mg IVP Q8HR PRN PRN Reason: Nausea And Vomiting Oxybutynin Chloride (Oxybutynin Xl 5 Mg Tab.Er.24) 5 mg PO DAILY [facility] Last Admin: 05/04/21 09:11 Dose: 5 mg Documented by: Pantoprazole Sodium (Pantoprazole 40 Mg Tablet) 40 mg PO DAILY@0730 [facility] Last Admin: 05/04/21 09:11 Dose: 40 mg Documented by: Pramipexole Dihydrochloride (Pramipexole 0.5 Mg Tab) 0.5 mg PO [facility] Last Admin: 05/03/21 19:08 Dose: 0.5 mg Documented by: Quetiapine Fumarate (Quetiapine 50 Mg Tab) 50 mg PO HS [facility] Last Admin: 05/03/21 19:08 Dose: 50 mg Documented by: Tamsulosin HCl (Tamsulosin 0.4 Mg Cap.Er.24h) 0.4 mg PO DAILY [facility] Last Admin: 05/04/21 09:13 Dose: 0.4 mg Documented by: Past medical history to include: Dementia, prostate cancer with surgery, third-degree heart block requiring permanent pacemaker, CHF EF of 55-60%, restless leg syndrome, generalized deconditioning, hard of hearing with hearing aids, wheelchair bound Social history: Patient is a former smoker. No alcohol. This is Dr. Macario. Uses a wheelchair. Family history: Emphysema Physical examination: VITAL SIGNS: 98.7, 61, 15, 134/82, 97% room air GENERAL: Laying in bed, sleepy EYES: Pupils equal. Conjunctiva normal. NECK: JVD not raised; masses not palpable. HEART: First and second heart sounds are normal; no edema. LUNGS: Respiratory rate increased, decreased breath sounds MUSCULAR skeletal: Evidence of OA ABDOMEN: Soft, nontender, liver spleen not palpable, no masses palpable. Centeno catheter PSYCH: Unable to assess, sleepy DERMATOLOGICAL: Wound on the right buttock. More details in the nursing notes INVESTIGATIONS, reviewed in the clinical context: May 03: WBC 14.3 hemoglobin 11.5 platelets 258 WBC 22.9 hemoglobin 13.4 platelets 326 potassium 5 BUN 20 creatinine 0.77 lactic acid 2.3 UA: Protein 2+ large leukoesterase WBC creatinine is 182, 70 to assess 3 bacteria many Coronavirus [PCR]: Not detected Chest x-ray film personally reviewed by me-questionable interstitial prominence/cannot rule out infiltrate. Assessment and plan: -Probable pneumonia, suspect gram-negative organism. IV cefepime. Blood culture-negative. -Acute UTI with cystitis secondary to Centeno catheter IV cefepime. Urine [id number] bacilli -Right buttock decub wound: Slow to respond Follow with ID. 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 -No code Continue IVs cefepime. Awaiting surgical input for wound debridement. Other medications to continue.
[2021-05-04 12:18] LABS: African American GFR (CKD) 91.8 (60.0-200.0); Albumin/Globulin Ratio 1.15 (1.60-3.17); Anion Gap 10.5 mmol/L (4.00-12.00); BUN/Creat Ratio 21.25 Ratio (12.00-20.00); Calcium 8.2 mg/dL (8.7-10.3); Carbon Dioxide 20.5 mmol/L (21.6-31.8); Globulin 2.6 g/dL (1.6-3.3); Non-African American GFR(CKD) 79.2 (60.0-200.0); Potassium 3.8 mmol/L (3.5-5.5); Total Bilirubin 0.5 mg/dL (0.3-1.2); Total Protein 5.6 g/dL (6.2-8.2)
[2021-05-04] MEDS ORDERED: LIDOCAINE 1% INJ 10MG/ML (20 ML MDV) SQ ONE (15:20)
--- NOTE | 2021-05-04 16:13 | P.GSCN ---
History of Present Illness Consult date: 05/04/21 History of present illness: 89-year-old male presented to the emergency department with concern for delirium and fever. He was admitted for these reasons and to rule out septic condition. On workup, he was found to have a left-sided gluteal decubitus ulcer that was un stageable. He also has had a Centeno catheter in place since September of this year. Urine cultures are pending. Surgeries consult it secondary to left sided gluteal decubitus ulcer debridement. Patient also is being followed by infectious disease. Patient's daughter is at bedside and states that the wound started months ago as a small boil. It is being treated at home with Santyl and Neosporin. Patient was on hospice, however was taken off hospice based on his clinical picture and insurance coverage according to the patient's daughter. Review of Systems ROS unobtainable: due to mental status Past Medical History Past Medical History: Heart Failure, Dementia, Memory Impairment Additional Past Medical History / Comment(s): prostate cancer, eliquis after pacemaker put in, low heart rate is why he needed pacemaker, right heel pressure ulcer, bruises easily from blood thinner History of Any Multi-Drug Resistant Organisms: None Reported Past Surgical History: Cholecystectomy, Pacemaker, Prostate Surgery Additional Past Surgical History / Comment(s): bilat knee replacements, shoulder surgery, carpal tunnel on right hand. Past Anesthesia/Blood Transfusion Reactions: No Reported Reaction Type of Cardiac Device: Permanent Pacemaker Device Placement Date:: 2019 Past Psychological History: Anxiety Smoking Status: Former smoker Past Alcohol Use History: None Reported Past Drug Use History: None Reported - Past Family History Father Additional Family Medical History / Comment(s): emphysema Mother Family Medical History: Dementia Sister(s) Family Medical History: Dementia Medications and Allergies Home Medications Medication Instructions Recorded Confirmed Type RX: Apixaban [Eliquis] 2.5 mg PO BID 12/02/20 05/02/21 History RX: Docusate [Colace] 100 mg PO Q48H 12/02/20 05/02/21 History RX: Furosemide [Lasix] 20 mg PO DAILY PRN 12/02/20 05/02/21 History RX: Memantine HCl 10 mg PO BID 12/02/20 05/02/21 History RX: Metoprolol Succinate [Toprol 25 mg PO DAILY 12/02/20 05/02/21 History XL] RX: Pramipexole [Mirapex] 0.5 mg PO HS 12/02/20 05/02/21 History RX: QUEtiapine [SEROquel] 50 mg PO HS 12/02/20 05/02/21 History Cholecalciferol [Vitamin D3 (25 25 mcg PO DAILY 05/02/21 05/02/21 History Mcg = 1000 Iu)] Nitrofurantoin Monohyd/M-Cryst 100 mg PO Q12HR 05/02/21 05/02/21 History [Macrobid] Allergies Allergy/AdvReac Type Severity Reaction Status Date / Time No Known Allergies Allergy Verified 05/02/21 13:33 Surgical - Exam Osteopathic Statement: *. No significant issues noted on an osteopathic structural exam other than those noted in the History and Physical/Consult. Vital Signs Temp Pulse Resp BP Pulse Ox 102.3 F H 75 18 137/63 90 L 05/02/21 09:52 05/02/21 09:52 05/02/21 09:52 05/02/21 09:52 05/02/21 09:52 - General no distress - ENT decreased hearing - Neck trachea midline - Respiratory normal respiratory effort - Abdomen Abdomen: soft, non tender - Genitourinary Left gluteal decubitus ulcer, unstageable with eschar formation, foul odor with turbid fluid drainage Results - Labs 05/03/21 02:47 05/04/21 05:00 Abnormal Lab Results - Last 24 Hours (Table) 05/04/21 Range/Units 05:00 Chloride 112 H (96-109) mmol/L Carbon Dioxide 20.5 L (21.6-31.8) mmol/L BUN/Creatinine Ratio 21.25 H (12.00-20.00) Ratio Glucose 133 H (70-110) mg/dL Calcium 8.2 L (8.7-10.3) mg/dL Total Protein 5.6 L (6.2-8.2) g/dL Albumin 3.00 L (3.80-4.90) g/dL Albumin/Globulin Ratio 1.15 L (1.60-3.17) g/dL Microbiology - Last 24 Hours (Table) 05/02/21 10:20 Blood Culture - Preliminary Blood No Growth after 48 hours 05/02/21 10:20 Blood Culture - Preliminary Blood No Growth after 48 hours 05/02/21 10:20 Urine Culture - Preliminary Urine,Voided Gram Neg Bacilli Diabetes panel 05/04/21 Range/Units 05:00 Sodium 143 (135-145) mmol/L Potassium 3.8 (3.5-5.5) mmol/L Chloride 112 H (96-109) mmol/L Carbon Dioxide 20.5 L (21.6-31.8) mmol/L BUN 17.0 (9.0-27.0) mg/dL Creatinine 0.8 (0.6-1.5) mg/dL Glucose 133 H (70-110) mg/dL Calcium 8.2 L (8.7-10.3) mg/dL AST 23 (14-35) U/L ALT 17 (10-49) U/L Alkaline Phosphatase 82 (41-126) U/L Total Protein 5.6 L (6.2-8.2) g/dL Albumin 3.00 L (3.80-4.90) g/dL Calcium panel 05/04/21 Range/Units 05:00 Calcium 8.2 L (8.7-10.3) mg/dL Albumin 3.00 L (3.80-4.90) g/dL Pituitary panel 05/04/21 Range/Units 05:00 Sodium 143 (135-145) mmol/L Potassium 3.8 (3.5-5.5) mmol/L Chloride 112 H (96-109) mmol/L Carbon Dioxide 20.5 L (21.6-31.8) mmol/L BUN 17.0 (9.0-27.0) mg/dL Creatinine 0.8 (0.6-1.5) mg/dL Glucose 133 H (70-110) mg/dL Calcium 8.2 L (8.7-10.3) mg/dL Adrenal panel 05/04/21 Range/Units 05:00 Sodium 143 (135-145) mmol/L Potassium 3.8 (3.5-5.5) mmol/L Chloride 112 H (96-109) mmol/L Carbon Dioxide 20.5 L (21.6-31.8) mmol/L BUN 17.0 (9.0-27.0) mg/dL Creatinine 0.8 (0.6-1.5) mg/dL Glucose 133 H (70-110) mg/dL Calcium 8.2 L (8.7-10.3) mg/dL Total Bilirubin 0.5 (0.3-1.2) mg/dL AST 23 (14-35) U/L ALT 17 (10-49) U/L Alkaline Phosphatase 82 (41-126) U/L Total Protein 5.6 L (6.2-8.2) g/dL Albumin 3.00 L (3.80-4.90) g/dL Assessment and Plan Plan: 89-year-old male with unstageable decubitus ulcer of the left gluteal region. There is turbid fluid that is draining along with foul odor. This does appear to be infected. Based on the patient's current clinical picture with delirium, we will perform a bedside excisional debridement as it is unclear how the patient will tolerate any sedative for anesthetic. This was discussed with the daughter at bedside in detail. Risks, benefits and alternatives were provided. The patient's daughter did provide consent for the patient. All questions were answered at bedside.
--- NOTE | 2021-05-04 16:16 | P.PCN ---
Date of Procedure: 05/04/21 Preoperative Diagnosis: Unstageable left gluteal decubitus ulcer Postoperative Diagnosis: Stage III left gluteal decubitus ulcer Procedure(s) Performed: Excisional debridement of the left gluteal decubitus ulcer Anesthesia: local Surgeon: Teodoro Skaggs Pathology: other (Deep cultures) Condition: stable Disposition: floor Indications for Procedure: 89-year-old male with unstable left gluteal decubitus ulcer. There is turbid fluid and followed her and concern for infection. Plan is for excisional d ebridement. Risks, benefits and alternatives were provided to the patient's daughter. She did provide consent. Operative Findings: Stage III decubitus ulcer, significant necrotic tissue and exudate, turbid and purulent fluid drainage Description of Procedure: The patient was placed in right lateral decubitus position. He was prepped and draped in regular sterile fashion. Local anesthetic was administered. An 11 blade scalpel was used to excise the eschar and necrotic tissue. The debridement was performed until all edges of the wound were mildly bleeding. The necrotic tissue was excised and followed deep into the wound. At this point a significant amount of turbid and purulent drainage was noted. Cultures of this site were taken. Further debridement was performed with 11 blade scalpel. Bleeding of the deep wound was then noted. Wound was then packed with wet gauze with instructions to remove this in a few hours. Wound is noted to be a stage III decubitus ulcer. Patient tolerated the procedure well. At this point, wound care nurses and wound care team will be consulted.
[2021-05-04] MEDS: QUEtiapine 50 MG TAB PO SCH (19:41)
--- NOTE | 2021-05-04 21:25 | PN ---
PROGRESS NOTE DATE OF SERVICE: 05/04/2021 REASON FOR FOLLOWUP: 1. Catheter associated urinary tract infection. 2. Left gluteal pressure ulcer. INTERVAL HISTORY: Patient is afebrile. The patient is breathing comfortably. Patient denies having any chest pain or cough. No vomiting. No abdominal pain or diarrhea. PHYSICAL EXAMINATION: Blood pressure 137/75, pulse of 53, temperature 98.2. He is 96% on room air. General description is an elderly male lying in bed in no distress. Respiratory system: Unlabored breathing, clear to auscultation anteriorly. Heart S1, S2. Regular rate and rhythm. Abdomen: Soft, nontender. Extremities: No edema of the feet. LABS: Hemoglobin 11.5, white count 14.3, BUN of 17, creatinine 0.8. Urine showing Gram- negative. Blood culture so far pending. DIAGNOSTIC IMPRESSION AND PLAN: Patient admitted to the hospital with sepsis, source likely catheter associated urinary tract infection and left gluteal infected pressure ulcer status post debridement and culture has been obtained. The patient will with cefepime to cover for UTI and bacteria associated with infected ulcer and continue supportive care. MMODL / IJN: [id number] / SANTIAGO
[2021-05-04] MEDS: PRAMIPEXOLE 0.5 MG TAB PO SCH (21:46)
[2021-05-05] MEDS: SODIUM CHLORIDE 0.9% 1,000 ML IV SCH ×3 (03:52→20:29)
[2021-05-05] MEDS: TAMSULOSIN 0.4 MG CAP.ER.24H PO SCH (08:38)
[2021-05-05] MEDS: ASPIRIN 81 MG PO SCH (08:38)
[2021-05-05] MEDS: CHOLECALCIFEROL 25 MCG (1000 IU) TABLET PO SCH (08:38)
[2021-05-05] MEDS: OXYBUTYNIN XL 5 MG TAB.ER.24 PO SCH (08:38)
[2021-05-05] MEDS: APIXABAN 2.5 MG TABLET PO SCH ×2 (08:38→19:37)
[2021-05-05] MEDS: METOPROLOL SUCCINATE (ER) 25 MG TAB.ER.24H PO SCH (08:38)
[2021-05-05] MEDS: PANTOPRAZOLE 40 MG TABLET PO SCH (08:38)
[2021-05-05] MEDS: MEMANTINE 10 MG TAB PO SCH ×2 (08:38→19:37)
[2021-05-05] MEDS: LORazepam 2 MG/ML INJ IV PRN ×2 (08:39→16:55)
[2021-05-05] MEDS: CEFEPIME 1 GM in SODIUM CHLORIDE 0.9% 50 ML IVPB SCH ×2 (08:40→20:21)
--- NOTE | 2021-05-05 17:39 | P.PN ---
Progress Note - Text Progress Note Date: 05/05/21 Chief Complaint: Fever History of presenting complaint: This is a 89-year-old patient who follows with visiting physicians, Dr. Walls. History is obtained by the daughter Amirah at the bedside. Had a baseline patient is uses wheelchair. 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 Macario. Patient also has a home care nurse. Patient developed a fever up to 102.3 with the last 24 hours. Patient has a gluteal abscess on the right buttock. Patient also is a Centeno catheter since September of this year. Patient's Centeno catheter was changed yesterday. Patient is able to recognize his daughter. But not able to give too much of any meaningful history. His appetite is okay. Incontinent of stool. No respiratory symptoms reported. No diarrhea. No abdominal pain. Admitted with bilateral pneumonia, acute UTI with cystitis secondary to Centeno catheter. On IV cefepime. Right buttock wound. May 03: Patient does have episodes of delirium. And acting out. Has a sitter. Ativan being used when necessary. Oral intake about 25%. Daughter at the bedside. Care was discussed. Right buttock wound for debridement. May 04: Patient continues to have episodes intermittently of agitation or delirium, multifactorial. Ativan when necessary being used. Awaiting surgical input for wound debridement. Currently sleepy. May 05: Patient underwent buttock wound debridement by Dr. Donnelly today. Pus and necrotic tissue removed. Daughter at the bedside. Discussed. Patient tired and sleepy following procedure. Review of systems could not be obtained because of patient's dementia. Relevant history as above Active Medications Acetaminophen (Acetaminophen Tab 325 Mg Tab) 650 mg PO Q6HR PRN PRN Reason: Mild Pain or Fever > 100.5 Apixaban (Apixaban 2.5 Mg Tablet) 2.5 mg PO BID [facility]; Protocol Last Admin: 05/05/21 08:38 Dose: 2.5 mg Documented by: Aspirin (Aspirin 81 Mg) 81 mg PO DAILY [facility] Last Admin: 05/05/21 08:38 Dose: 81 mg Documented by: Cholecalciferol (Cholecalciferol 25 Mcg (1000 Iu) Tablet) 50 mcg PO DAILY [facility] Last Admin: 05/05/21 08:38 Dose: 50 mcg Documented by: Sodium Chloride (Saline 0.9%) 1,000 mls @ 130 mls/hr IV .Q7H42M [facility] Last Admin: 05/05/21 15:00 Dose: Not Given Documented by: Cefepime HCl 1 gm/ Sodium (Chloride) 50 mls @ 12.5 mls/hr IVPB Q12HR [facility] Last Admin: 05/05/21 08:40 Dose: 12.5 mls/hr Documented by: Lactulose (Lactulose 20 Gm/30 Ml Cup) 20 gm PO BID PRN PRN Reason: Constipation Last Admin: 05/03/21 07:48 Dose: 20 gm Documented by: Lorazepam (Lorazepam 2 Mg/Ml Inj) 0.5 mg IV Q8HR PRN PRN Reason: Anxiety Last Admin: 05/05/21 16:55 Dose: 0.5 mg Documented by: Memantine (Memantine 10 Mg Tab) 10 mg PO BID [facility] Last Admin: 05/05/21 08:38 Dose: 10 mg Documented by: Metoprolol Succinate (Metoprolol Succinate (Er) 25 Mg Tab.Er.24h) 25 mg PO DAILY [facility] Last Admin: 05/05/21 08:38 Dose: 25 mg Documented by: Naloxone HCl (Naloxone 0.4 Mg/Ml 1 Ml Vial) 0.2 mg IV Q2M PRN PRN Reason: Opioid Reversal Ondansetron HCl (Ondansetron 4 Mg/2 Ml Vial) 4 mg IVP Q8HR PRN PRN Reason: Nausea And Vomiting Oxybutynin Chloride (Oxybutynin Xl 5 Mg Tab.Er.24) 5 mg PO DAILY [facility] Last Admin: 05/05/21 08:38 Dose: 5 mg Documented by: Pantoprazole Sodium (Pantoprazole 40 Mg Tablet) 40 mg PO DAILY@0730 [facility] Last Admin: 05/05/21 08:38 Dose: 40 mg Documented by: Pramipexole Dihydrochloride (Pramipexole 0.5 Mg Tab) 0.5 mg PO [facility] Last Admin: 05/04/21 21:46 Dose: 0.5 mg Documented by: Quetiapine Fumarate (Quetiapine 50 Mg Tab) 50 mg PO [facility] Last Admin: 05/04/21 19:41 Dose: 50 mg Documented by: Tamsulosin HCl (Tamsulosin 0.4 Mg Cap.Er.24h) 0.4 mg PO DAILY [facility] Last Admin: 05/05/21 08:38 Dose: 0.4 mg Documented by: Past medical history to include: Dementia, prostate cancer with surgery, third-degree heart block requiring permanent pacemaker, CHF EF of 55-60%, restless leg syndrome, generalized deconditioning, hard of hearing with hearing aids, wheelchair bound Social history: Patient is a former smoker. No alcohol. This is Dr. Macario. Uses a wheelchair. Family history: Emphysema Physical examination: VITAL SIGNS: 98.7, 63, 20, 146/68, 96% room air GENERAL: Laying in bed, sleepy EYES: Pupils equal. Conjunctiva normal. NECK: JVD not raised; masses not palpable. HEART: First and second heart sounds are normal; no edema. LUNGS: Respiratory rate increased, decreased breath sounds MUSCULAR skeletal: Evidence of OA ABDOMEN: Soft, nontender, liver spleen not palpable, no masses palpable. Centeno catheter PSYCH: Unable to assess, sleepy DERMATOLOGICAL: Wound on the right buttock. With dressing INVESTIGATIONS, reviewed in the clinical context: May 04: Potassium 3.8 creatinine 0.8 Urine culture: Pseudomonas aeruginosa May 03: WBC 14.3 hemoglobin 11.5 platelets 258 WBC 22.9 hemoglobin 13.4 platelets 326 potassium 5 BUN 20 creatinine 0.77 lactic acid 2.3 UA: Protein 2+ large leukoesterase WBC creatinine is 182, 70 to assess 3 bacteria many Coronavirus [PCR]: Not detected Chest x-ray film personally reviewed by me-questionable interstitial prominence/cannot rule out infiltrate. Assessment and plan: -Probable pneumonia, suspect gram-negative organism. IV cefepime. Blood culture-negative. -Acute UTI with cystitis secondary to Centeno catheter IV cefepime. Urine culture-pseudomonas aeruginosa -Right buttock decub wound: Slow to respond Follow with ID. May [address] 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 -No code Continue IVs cefepime. Buttock wound debrided today. Discussed with daughter the bedside. Cultures sent off. Other medications to continue. Follow with ID.
--- NOTE | 2021-05-05 18:45 | PN ---
PROGRESS NOTE DATE OF SERVICE: 05/05/2021 REASON FOR FOLLOWUP: 1. Catheter-associated urinary tract infection. 2. Left gluteal infected wound. INTERVAL HISTORY: The patient is afebrile. The patient is currently breathing comfortably on room air. No chest pain or cough. No abdominal pain or worsening pain to the left gluteal area. PHYSICAL EXAMINATION: Blood pressure 132/67, pulse of , temperature 99.1. He is 98% on room air. GENERAL DESCRIPTION: General description is an elderly male lying in bed in no distress. RESPIRATORY SYSTEM: Unlabored breathing. Clear to auscultation anteriorly. HEART: S1, S2. Regular rate and rhythm. ABDOMEN: Soft. No tenderness. LABS: BUN of , creatinine 0.8. Urine is showing a pseudomonas. The buttock cultures are currently pending. DIAGNOSTIC IMPRESSION AND PLAN: Patient admitted to hospital with fever, multifactorial, in this patient who did have a catheter-associated urinary tract infection, also with an infected left gluteal wound, status post debridement. Patient is covered with cefepime. That will be continued for now while waiting for the culture to finalize. Continue supportive care. MMODL / IJN: [id number] /
[2021-05-05] MEDS: QUEtiapine 50 MG TAB PO SCH (19:37)
[2021-05-05] MEDS: PRAMIPEXOLE 0.5 MG TAB PO SCH (19:37)
[2021-05-06] MEDS: SODIUM CHLORIDE 0.9% 1,000 ML IV SCH ×2 (07:07→10:47)
[2021-05-06] MEDS: CEFEPIME 1 GM in SODIUM CHLORIDE 0.9% 50 ML IVPB SCH ×2 (08:20→19:54)
[2021-05-06] MEDS: CHOLECALCIFEROL 25 MCG (1000 IU) TABLET PO SCH (08:21)
[2021-05-06] MEDS: ASPIRIN 81 MG PO SCH (08:21)
[2021-05-06] MEDS: PANTOPRAZOLE 40 MG TABLET PO SCH (08:21)
[2021-05-06] MEDS: METOPROLOL SUCCINATE (ER) 25 MG TAB.ER.24H PO SCH (08:21)
[2021-05-06] MEDS: MEMANTINE 10 MG TAB PO SCH ×2 (08:21→19:54)
[2021-05-06] MEDS: APIXABAN 2.5 MG TABLET PO SCH ×2 (08:21→19:54)
[2021-05-06] MEDS: TAMSULOSIN 0.4 MG CAP.ER.24H PO SCH (08:21)
[2021-05-06] MEDS: OXYBUTYNIN XL 5 MG TAB.ER.24 PO SCH (08:21)
--- NOTE | 2021-05-06 14:18 | P.PN ---
Progress Note - Text Progress Note Date: 05/06/21 Chief Complaint: Fever History of presenting complaint: This is a 89-year-old patient who follows with visiting physicians, Dr. Walls. History is obtained by the daughter Amirah at the bedside. Had a baseline patient is uses wheelchair. 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 Macario. Patient also has a home care nurse. Patient developed a fever up to 102.3 with the last 24 hours. Patient has a gluteal abscess on the right buttock. Patient also is a Centeno catheter since September of this year. Patient's Centeno catheter was changed yesterday. Patient is able to recognize his daughter. But not able to give too much of any meaningful history. His appetite is okay. Incontinent of stool. No respiratory symptoms reported. No diarrhea. No abdominal pain. Admitted with bilateral pneumonia, acute UTI with cystitis secondary to Centeno catheter. On IV cefepime. Right buttock wound. May 03: Patient does have episodes of delirium. And acting out. Has a sitter. Ativan being used when necessary. Oral intake about 25%. Daughter at the bedside. Care was discussed. Right buttock wound for debridement. May 04: Patient continues to have episodes intermittently of agitation or delirium, multifactorial. Ativan when necessary being used. Awaiting surgical input for wound debridement. Currently sleepy. May 05: Patient underwent buttock wound debridement by Dr. Donnelly today. Pus and necrotic tissue removed. Daughter at the bedside. Discussed. Patient tired and sleepy following procedure. May 06: Patient more awake today. Answering simple questions. Daughter the bedside. Eating food. Review of systems could not be obtained because of patient's dementia. Relevant history as above Active Medications Acetaminophen (Acetaminophen Tab 325 Mg Tab) 650 mg PO Q6HR PRN PRN Reason: Mild Pain or Fever > 100.5 Apixaban (Apixaban 2.5 Mg Tablet) 2.5 mg PO BID [facility]; Protocol Last Admin: 05/06/21 08:21 Dose: 2.5 mg Documented by: Aspirin (Aspirin 81 Mg) 81 mg PO DAILY [facility] Last Admin: 05/06/21 08:21 Dose: 81 mg Documented by: Cholecalciferol (Cholecalciferol 25 Mcg (1000 Iu) Tablet) 50 mcg PO DAILY [facility] Last Admin: 05/06/21 08:21 Dose: 50 mcg Documented by: Sodium Chloride (Saline 0.9%) 1,000 mls @ 130 mls/hr IV .Q7H42M [facility] Last Admin: 05/06/21 10:47 Dose: Not Given Documented by: Cefepime HCl 1 gm/ Sodium (Chloride) 50 mls @ 12.5 mls/hr IVPB Q12HR [facility] Last Admin: 05/06/21 08:20 Dose: 12.5 mls/hr Documented by: Lactulose (Lactulose 20 Gm/30 Ml Cup) 20 gm PO BID PRN PRN Reason: Constipation Last Admin: 05/03/21 07:48 Dose: 20 gm Documented by: Lorazepam (Lorazepam 2 Mg/Ml Inj) 0.5 mg IV Q8HR PRN PRN Reason: Anxiety Last Admin: 05/05/21 16:55 Dose: 0.5 mg Documented by: Memantine (Memantine 10 Mg Tab) 10 mg PO BID [facility] Last Admin: 05/06/21 08:21 Dose: 10 mg Documented by: Metoprolol Succinate (Metoprolol Succinate (Er) 25 Mg Tab.Er.24h) 25 mg PO DAILY [facility] Last Admin: 05/06/21 08:21 Dose: 25 mg Documented by: Naloxone HCl (Naloxone 0.4 Mg/Ml 1 Ml Vial) 0.2 mg IV Q2M PRN PRN Reason: Opioid Reversal Ondansetron HCl (Ondansetron 4 Mg/2 Ml Vial) 4 mg IVP Q8HR PRN PRN Reason: Nausea And Vomiting Oxybutynin Chloride (Oxybutynin Xl 5 Mg Tab.Er.24) 5 mg PO DAILY [facility] Last Admin: 05/06/21 08:21 Dose: 5 mg Documented by: Pantoprazole Sodium (Pantoprazole 40 Mg Tablet) 40 mg PO DAILY@0730 [facility] Last Admin: 05/06/21 08:21 Dose: 40 mg Documented by: Pramipexole Dihydrochloride (Pramipexole 0.5 Mg Tab) 0.5 mg PO HS [facility] Last Admin: 05/05/21 19:37 Dose: 0.5 mg Documented by: Quetiapine Fumarate (Quetiapine 50 Mg Tab) 50 mg PO HS [facility] Last Admin: 05/05/21 19:37 Dose: 50 mg Documented by: Tamsulosin HCl (Tamsulosin 0.4 Mg Cap.Er.24h) 0.4 mg PO DAILY [facility] Last Admin: 05/06/21 08:21 Dose: 0.4 mg Documented by: Past medical history to include: Dementia, prostate cancer with surgery, third-degree heart block requiring permanent pacemaker, CHF EF of 55-60%, restless leg syndrome, generalized deconditioning, hard of hearing with hearing aids, wheelchair bound Social history: Patient is a former smoker. No alcohol. This is Dr. Macario. Uses a wheelchair. Family history: Emphysema Physical examination: VITAL SIGNS: 97.6, 60, 18, 113/66, 95% room air GENERAL: Reclining in bed, eating EYES: Pupils equal. Conjunctiva normal. NECK: JVD not raised; masses not palpable. HEART: First and second heart sounds are normal; no edema. LUNGS: Respiratory rate increased, decreased breath sounds MUSCULAR skeletal: Evidence of OA ABDOMEN: Soft, nontender, liver spleen not palpable, no masses palpable. Centeno catheter PSYCH: Answering simple questions DERMATOLOGICAL: Wound on the right buttock. With dressing INVESTIGATIONS, reviewed in the clinical context: May 04: Potassium 3.8 creatinine 0.8 Urine culture: Pseudomonas aeruginosa May 03: WBC 14.3 hemoglobin 11.5 platelets 258 WBC 22.9 hemoglobin 13.4 platelets 326 potassium 5 BUN 20 creatinine 0.77 lactic acid 2.3 UA: Protein 2+ large leukoesterase WBC creatinine is 182, 70 to assess 3 bacteria many Coronavirus [PCR]: Not detected Chest x-ray film personally reviewed by me-questionable interstitial prominence/cannot rule out infiltrate. Assessment and plan: -Probable pneumonia, suspect gram-negative organism. IV cefepime. Blood culture-negative. -Acute UTI with cystitis secondary to Centeno catheter IV cefepime. Urine culture-pseudomonas aeruginosa -Right buttock decub wound: Follow with ID. May [address] 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 -No code Continue IVs cefepime. Wound care per ID. Discussed with the daughter. Clinically improving. Continue current treatment. Pending cultures.
[2021-05-06] MEDS: LORazepam 2 MG/ML INJ IV PRN (16:51)
--- NOTE | 2021-05-06 18:59 | PN ---
PROGRESS NOTE DATE OF SERVICE: 05/06/2021 REASON FOR FOLLOWUP: 1. Pseudomonas urinary tract infection. 2. Left gluteal infected pressure ulcer. INTERVAL HISTORY: The patient is currently afebrile. The patient is more awake and alert. He is breathing comfortably. No chest pain. No cough. No abdominal pain or pain to the left gluteal wound area. PHYSICAL EXAMINATION: On examination, blood pressure 113/66, pulse of 70, temperature 97.6. He is 95% on room air. GENERAL DESCRIPTION: General description is an elderly male lying in bed in no distress. RESPIRATORY SYSTEM: Unlabored breathing. Clear to auscultation anteriorly. HEART: S1, S2. Regular rate and rhythm. ABDOMEN: Soft. No tenderness. Left gluteal wound is currently dressed. LABS: No new labs have been obtained today. Cultures currently pending. DIAGNOSTIC IMPRESSION AND PLAN: Patient with pseudomonas urinary tract infection and a left gluteal pressure ulcer, status post debridement. Cultures are currently pending. Patient is covered with cefepime; to continue, adjusting antibiotic further based on the culture report. Daughter at the bedside. Questions and concerns were answered. MMODL / IJN: [id number] /
[2021-05-06] MEDS: PRAMIPEXOLE 0.5 MG TAB PO SCH (19:54)
[2021-05-06] MEDS: QUEtiapine 50 MG TAB PO SCH (19:54)
[2021-05-07] MEDS: SODIUM CHLORIDE 0.9% 1,000 ML IV SCH ×5 (01:05→21:38)
[2021-05-07 05:50] LABS: Basophils % (A) 0 %; Eosinophils # (A) 0.3 k/uL (0-0.7); Eosinophils % (A) 2 %; HCT 36.4 % (39.0-53.0); HGB 11.9 gm/dL (13.0-17.5); Lymphocytes % (A) 7 %; MCH 30.2 pg (25.0-35.0); MCHC 32.6 g/dL (31.0-37.0); MCV 92.6 fL (80.0-100.0); Monocytes # (A) 0.5 k/uL (0-1.0); Monocytes % (A) 3 %; Neutrophils # (A) 12.6 k/uL (1.3-7.7); Neutrophils % (A) 87 %; Platelet Count 298 k/uL (150-450); RBC 3.93 m/uL (4.30-5.90); RDW 14.9 % (11.5-15.5); WBC 14.5 k/uL (3.8-10.6)
[2021-05-07 06:11] LABS: African American GFR (CKD) >90 (>60 ml/min/1.73 sqM); Anion Gap 7 mmol/L; Blood Urea Nitrogen 12 mg/dL (9-20); Calcium 7.9 mg/dL (8.4-10.2); Carbon Dioxide 22 mmol/L (22-30); Chloride 111 mmol/L (98-107); Glucose 126 mg/dL (74-99); Non-African American GFR(CKD) 90 (>60 ml/min/1.73 sqM); Potassium 3.6 mmol/L (3.5-5.1); Sodium 140 mmol/L (137-145)
[2021-05-07] MEDS: APIXABAN 2.5 MG TABLET PO SCH ×2 (08:23→21:53)
[2021-05-07] MEDS: MEMANTINE 10 MG TAB PO SCH ×2 (08:23→21:53)
[2021-05-07] MEDS: METOPROLOL SUCCINATE (ER) 25 MG TAB.ER.24H PO SCH (08:23)
[2021-05-07] MEDS: PANTOPRAZOLE 40 MG TABLET PO SCH (08:23)
[2021-05-07] MEDS: OXYBUTYNIN XL 5 MG TAB.ER.24 PO SCH (08:23)
[2021-05-07] MEDS: TAMSULOSIN 0.4 MG CAP.ER.24H PO SCH (08:23)
[2021-05-07] MEDS: ASPIRIN 81 MG PO SCH (08:23)
[2021-05-07] MEDS: CHOLECALCIFEROL 25 MCG (1000 IU) TABLET PO SCH (08:23)
[2021-05-07] MEDS: CEFEPIME 1 GM in SODIUM CHLORIDE 0.9% 50 ML IVPB SCH (08:24)
--- NOTE | 2021-05-07 14:10 | P.PN ---
Progress Note - Text Progress Note Date: 05/07/21 Chief Complaint: Fever History of presenting complaint: This is a 89-year-old patient who follows with visiting physicians, Dr. Walls. History is obtained by the daughter Amirah at the bedside. Had a baseline patient is uses wheelchair. 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 Macario. Patient also has a home care nurse. Patient developed a fever up to 102.3 with the last 24 hours. Patient has a gluteal abscess on the right buttock. Patient also is a Centeno catheter since September of this year. Patient's Centeno catheter was changed yesterday. Patient is able to recognize his daughter. But not able to give too much of any meaningful history. His appetite is okay. Incontinent of stool. No respiratory symptoms reported. No diarrhea. No abdominal pain. Admitted with bilateral pneumonia, acute UTI with cystitis secondary to Centeno catheter. On IV cefepime. Right buttock wound. May 03: Patient does have episodes of delirium. And acting out. Has a sitter. Ativan being used when necessary. Oral intake about 25%. Daughter at the bedside. Care was discussed. Right buttock wound for debridement. May 04: Patient continues to have episodes intermittently of agitation or delirium, multifactorial. Ativan when necessary being used. Awaiting surgical input for wound debridement. Currently sleepy. May 05: Patient underwent buttock wound debridement by Dr. Donnelly today. Pus and necrotic tissue removed. Daughter at the bedside. Discussed. Patient tired and sleepy following procedure. May 06: Patient more awake today. Answering simple questions. Daughter the bedside. Eating food. May 07: reclining in bed. Oral intake fluctuating. No pain. Buttock wound growing Pseudomonas and beta-hemolytic strep Review of systems could not be obtained because of patient's dementia. Relevant history as above Active Medications Acetaminophen (Acetaminophen Tab 325 Mg Tab) 650 mg PO Q6HR PRN PRN Reason: Mild Pain or Fever > 100.5 Apixaban (Apixaban 2.5 Mg Tablet) 2.5 mg PO BID [facility]; Protocol Last Admin: 05/07/21 08:23 Dose: 2.5 mg Documented by: Aspirin (Aspirin 81 Mg) 81 mg PO DAILY [facility] Last Admin: 05/07/21 08:23 Dose: 81 mg Documented by: Cholecalciferol (Cholecalciferol 25 Mcg (1000 Iu) Tablet) 50 mcg PO DAILY [facility] Last Admin: 05/07/21 08:23 Dose: 50 mcg Documented by: Sodium Chloride (Saline 0.9%) 1,000 mls @ 130 mls/hr IV .Q7H42M [facility] Last Admin: 05/07/21 08:24 Dose: Not Given Documented by: Cefepime HCl 1 gm/ Sodium (Chloride) 50 mls @ 12.5 mls/hr IVPB Q12HR [facility] Last Admin: 05/07/21 08:24 Dose: 12.5 mls/hr Documented by: Lactulose (Lactulose 20 Gm/30 Ml Cup) 20 gm PO BID PRN PRN Reason: Constipation Last Admin: 05/03/21 07:48 Dose: 20 gm Documented by: Lorazepam (Lorazepam 2 Mg/Ml Inj) 0.5 mg IV Q8HR PRN PRN Reason: Anxiety Last Admin: 05/06/21 16:51 Dose: 0.5 mg Documented by: Memantine (Memantine 10 Mg Tab) 10 mg PO BID [facility] Last Admin: 05/07/21 08:23 Dose: 10 mg Documented by: Metoprolol Succinate (Metoprolol Succinate (Er) 25 Mg Tab.Er.24h) 25 mg PO DAILY [facility] Last Admin: 05/07/21 08:23 Dose: 25 mg Documented by: Naloxone HCl (Naloxone 0.4 Mg/Ml 1 Ml Vial) 0.2 mg IV Q2M PRN PRN Reason: Opioid Reversal Ondansetron HCl (Ondansetron 4 Mg/2 Ml Vial) 4 mg IVP Q8HR PRN PRN Reason: Nausea And Vomiting Oxybutynin Chloride (Oxybutynin Xl 5 Mg Tab.Er.24) 5 mg PO DAILY [facility] Last Admin: 05/07/21 08:23 Dose: 5 mg Documented by: Pantoprazole Sodium (Pantoprazole 40 Mg Tablet) 40 mg PO DAILY@0730 [facility] Last Admin: 05/07/21 08:23 Dose: 40 mg Documented by: Pramipexole Dihydrochloride (Pramipexole 0.5 Mg Tab) 0.5 mg PO HS [facility] Last Admin: 05/06/21 19:54 Dose: 0.5 mg Documented by: Quetiapine Fumarate (Quetiapine 50 Mg Tab) 50 mg PO [facility] Last Admin: 05/06/21 19:54 Dose: 50 mg Documented by: Tamsulosin HCl (Tamsulosin 0.4 Mg Cap.Er.24h) 0.4 mg PO DAILY [facility] Last Admin: 05/07/21 08:23 Dose: 0.4 mg Documented by: Past medical history to include: Dementia, prostate cancer with surgery, third-degree heart block requiring permanent pacemaker, CHF EF of 55-60%, restless leg syndrome, generalized deconditioning, hard of hearing with hearing aids, wheelchair bound Social history: Patient is a former smoker. No alcohol. This is Dr. Macario. Uses a wheelchair. Family history: Emphysema Physical examination: VITAL SIGNS: 98.2, 59, 20, 151/75, 97% room air GENERAL: Reclining in bed, eating EYES: Pupils equal. Conjunctiva normal. NECK: JVD not raised; masses not palpable. HEART: First and second heart sounds are normal; no edema. LUNGS: Respiratory rate increased, decreased breath sounds MUSCULAR skeletal: Evidence of OA ABDOMEN: Soft, nontender, liver spleen not palpable, no masses palpable. Centeno catheter PSYCH: Answering simple questions DERMATOLOGICAL: Wound on the right buttock. With dressing INVESTIGATIONS, reviewed in the clinical context: May 04: Potassium 3.8 creatinine 0.8 Buttock wound culture: Pseudomonas aeruginosa Urine culture: Pseudomonas aeruginosa May 03: WBC 14.3 hemoglobin 11.5 platelets 258 WBC 22.9 hemoglobin 13.4 platelets 326 potassium 5 BUN 20 creatinine 0.77 lactic acid 2.3 UA: Protein 2+ large leukoesterase WBC creatinine is 182, 70 to assess 3 bacteria many Coronavirus [PCR]: Not detected Chest x-ray film personally reviewed by me-questionable interstitial prominence/cannot rule out infiltrate. Assessment and plan: -Probable pneumonia, suspect gram-negative organism. IV cefepime. Blood culture-negative. -Acute UTI with cystitis secondary to Centeno catheter IV cefepime. Urine culture-pseudomonas aeruginosa -Right buttock decub wound: Follow with ID. May [address] donnelly. 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 -No code Continue IVs cefepime. Wound care per ID. medications to continue.
[2021-05-07] MEDS: ACETAMINOPHEN TAB 325 MG TAB PO PRN (14:11)
[2021-05-07] MEDS: COLLAGENASE 250 UNIT/GM OINTMENT 30 GM TUBE TOPICAL SCH (17:03)
[2021-05-07] MEDS: PIPERACILLIN-TAZOBACTAM 3.375 GM in SODIUM CHLORIDE 0.9% 100 ML IVPB SCH (17:50)
--- NOTE | 2021-05-07 18:16 | PN ---
PROGRESS NOTE DATE OF SERVICE: 05/07/2021 REASON FOR FOLLOWUP: 1. Left gluteal infected pressure ulcer. 2. UTI. INTERVAL HISTORY: The patient did spike a fever of 101.7 degrees Fahrenheit this afternoon. The patient is slightly sleepy, lethargic today. However, currently on room air. No vomiting, diarrhea or other changes reported by the nursing staff. Did have foul-smelling drainage from his left gluteal wound. PHYSICAL EXAMINATION: Blood pressure 130/55 with a pulse of 70, temperature 97.9, T-max of 101.7. He is 92% on room air. GENERAL DESCRIPTION: General description is an elderly male lying in bed in no distress. RESPIRATORY SYSTEM: Unlabored breathing. Clear to auscultation anteriorly. HEART: S1, S2. Regular rate and rhythm. ABDOMEN: Soft. No tenderness. Left gluteal wound still has a significant amount of slough and necrotic tissue; however, the bone is not exposed. LABS: Hemoglobin is 11.9, white count 14.5, BUN of 12, creatinine 0.60. DIAGNOSTIC IMPRESSION AND PLAN: 1. Patient with infected left gluteal pressure ulcer with secondary cellulitis. Will benefit from possible further drainage. Will discuss with the surgeon. Local care to continue with Santyl and moist dressing. Culture positive for group G strep and pseudomonas. 2. Pseudomonas urinary tract infection . 3. Patient with a new fever. Will obtain blood cultures and adjust antibiotic to Zosyn and monitor his clinical course closely. He will likely need a PICC line and outpatient antibiotic therapy. MMODL / IJN: [id number] /
[2021-05-07] MEDS: PRAMIPEXOLE 0.5 MG TAB PO SCH (21:53)
[2021-05-08] MEDS: QUEtiapine 50 MG TAB PO SCH ×2 (01:57→19:40)
[2021-05-08] MEDS: PIPERACILLIN-TAZOBACTAM 3.375 GM in SODIUM CHLORIDE 0.9% 100 ML IVPB SCH ×3 (01:59→16:51)
[2021-05-08] MEDS: OXYBUTYNIN XL 5 MG TAB.ER.24 PO SCH (07:37)
[2021-05-08] MEDS: SODIUM CHLORIDE 0.9% 1,000 ML IV SCH ×2 (07:37→16:53)
[2021-05-08] MEDS: CHOLECALCIFEROL 25 MCG (1000 IU) TABLET PO SCH (07:37)
[2021-05-08] MEDS: ASPIRIN 81 MG PO SCH (07:37)
[2021-05-08] MEDS: APIXABAN 2.5 MG TABLET PO SCH ×2 (07:37→19:40)
[2021-05-08] MEDS: MEMANTINE 10 MG TAB PO SCH ×2 (07:37→19:40)
[2021-05-08] MEDS: PANTOPRAZOLE 40 MG TABLET PO SCH (07:37)
[2021-05-08] MEDS: TAMSULOSIN 0.4 MG CAP.ER.24H PO SCH (07:37)
[2021-05-08] MEDS: METOPROLOL SUCCINATE (ER) 25 MG TAB.ER.24H PO SCH (07:37)
[2021-05-08] MEDS: LORazepam 2 MG/ML INJ IV PRN (07:47)
[2021-05-08] MEDS: COLLAGENASE 250 UNIT/GM OINTMENT 30 GM TUBE TOPICAL SCH (10:39)
--- NOTE | 2021-05-08 12:48 | P.PN ---
Progress Note - Text Progress Note Date: 05/08/21 Chief Complaint: Fever History of presenting complaint: This is a 89-year-old patient who follows with visiting physicians, Dr. Walls. History is obtained by the daughter Amirah at the bedside. Had a baseline patient is uses wheelchair. 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 Macario. Patient also has a home care nurse. Patient developed a fever up to 102.3 with the last 24 hours. Patient has a gluteal abscess on the right buttock. Patient also is a Centeno catheter since September of this year. Patient's Centeno catheter was changed yesterday. Patient is able to recognize his daughter. But not able to give too much of any meaningful history. His appetite is okay. Incontinent of stool. No respiratory symptoms reported. No diarrhea. No abdominal pain. Admitted with bilateral pneumonia, acute UTI with cystitis secondary to Centeno catheter. On IV cefepime. Right buttock wound. May 03: Patient does have episodes of delirium. And acting out. Has a sitter. Ativan being used when necessary. Oral intake about 25%. Daughter at the bedside. Care was discussed. Right buttock wound for debridement. May 04: Patient continues to have episodes intermittently of agitation or delirium, multifactorial. Ativan when necessary being used. Awaiting surgical input for wound debridement. Currently sleepy. May 05: Patient underwent buttock wound debridement by Dr. Donnelly today. Pus and necrotic tissue removed. Daughter at the bedside. Discussed. Patient tired and sleepy following procedure. May 06: Patient more awake today. Answering simple questions. Daughter the bedside. Eating food. May 07: reclining in bed. Oral intake fluctuating. No pain. Buttock wound growing Pseudomonas and beta-hemolytic strep May 08: Wound is not healed currently. On IV Zosyn. Pain control. Oral intake up-and-down.. Tired. Spiked a fever yesterday evening. Review of systems could not be obtained because of patient's dementia. Relevant history as above Active Medications Acetaminophen (Acetaminophen Tab 325 Mg Tab) 650 mg PO Q6HR PRN PRN Reason: Mild Pain or Fever > 100.5 Last Admin: 05/07/21 14:11 Dose: 650 mg Documented by: Apixaban (Apixaban 2.5 Mg Tablet) 2.5 mg PO BID [facility]; Protocol Last Admin: 05/08/21 07:37 Dose: 2.5 mg Documented by: Aspirin (Aspirin 81 Mg) 81 mg PO DAILY [facility] Last Admin: 05/08/21 07:37 Dose: 81 mg Documented by: Cholecalciferol (Cholecalciferol 25 Mcg (1000 Iu) Tablet) 50 mcg PO DAILY [facility] Last Admin: 05/08/21 07:37 Dose: 50 mcg Documented by: Collagenase (Collagenase 250 Unit/Gm Ointment 30 Gm Tube) 1 applic TOPICAL DAILY [facility]; Protocol Last Admin: 05/08/21 10:39 Dose: Not Given Documented by: Sodium Chloride (Saline 0.9%) 1,000 mls @ 130 mls/hr IV .Q7H42M [facility] Last Admin: 05/08/21 07:37 Dose: 130 mls/hr Documented by: Piperacillin Sod/Tazobactam (Sod 3.375 gm/ Sodium Chloride) 100 mls @ 25 mls/hr IVPB Q8HR [facility] Last Admin: 05/08/21 07:47 Dose: 25 mls/hr Documented by: Lactulose (Lactulose 20 Gm/30 Ml Cup) 20 gm PO BID PRN PRN Reason: Constipation Last Admin: 05/03/21 07:48 Dose: 20 gm Documented by: Lorazepam (Lorazepam 2 Mg/Ml Inj) 0.5 mg IV Q8HR PRN PRN Reason: Anxiety Last Admin: 05/08/21 07:47 Dose: 0.5 mg Documented by: Memantine (Memantine 10 Mg Tab) 10 mg PO BID [facility] Last Admin: 05/08/21 07:37 Dose: 10 mg Documented by: Metoprolol Succinate (Metoprolol Succinate (Er) 25 Mg Tab.Er.24h) 25 mg PO DAILY [facility] Last Admin: 05/08/21 07:37 Dose: 25 mg Documented by: Naloxone HCl (Naloxone 0.4 Mg/Ml 1 Ml Vial) 0.2 mg IV Q2M PRN PRN Reason: Opioid Reversal Ondansetron HCl (Ondansetron 4 Mg/2 Ml Vial) 4 mg IVP Q8HR PRN PRN Reason: Nausea And Vomiting Oxybutynin Chloride (Oxybutynin Xl 5 Mg Tab.Er.24) 5 mg PO DAILY [facility] Last Admin: 05/08/21 07:37 Dose: 5 mg Documented by: Pantoprazole Sodium (Pantoprazole 40 Mg Tablet) 40 mg PO DAILY@0730 [facility] Last Admin: 05/08/21 07:37 Dose: 40 mg Documented by: Pramipexole Dihydrochloride (Pramipexole 0.5 Mg Tab) 0.5 mg PO [facility] Last Admin: 05/07/21 21:53 Dose: 0.5 mg Documented by: Quetiapine Fumarate (Quetiapine 50 Mg Tab) 50 mg PO [facility] Last Admin: 05/08/21 01:57 Dose: Not Given Documented by: Tamsulosin HCl (Tamsulosin 0.4 Mg Cap.Er.24h) 0.4 mg PO DAILY [facility] Last Admin: 05/08/21 07:37 Dose: 0.4 mg Documented by: Past medical history to include: Dementia, prostate cancer with surgery, third-degree heart block requiring permanent pacemaker, CHF EF of 55-60%, restless leg syndrome, generalized deconditioning, hard of hearing with hearing aids, wheelchair bound Social history: Patient is a former smoker. No alcohol. This is Dr. Macario. Uses a wheelchair. Family history: Emphysema Physical examination: VITAL SIGNS: T-max 101.7, 56, 16, 121/67, 97% room air GENERAL: Reclining in bed, tired EYES: Pupils equal. Conjunctiva normal. NECK: JVD not raised; masses not palpable. HEART: First and second heart sounds are normal; no edema. LUNGS: Respiratory rate increased, decreased breath sounds MUSCULAR skeletal: Evidence of OA ABDOMEN: Soft, nontender, liver spleen not palpable, no masses palpable. Centeno catheter PSYCH: Answering simple questions DERMATOLOGICAL: Wound on the right buttock. With dressing INVESTIGATIONS, reviewed in the clinical context: May 07: WBC 14.5 hemoglobin 11.9 potassium 3.6 creatinine 0.6 ESR 66 CRP 14.4 May 04: Potassium 3.8 creatinine 0.8 Buttock wound culture: Pseudomonas aeruginosa Urine culture: Pseudomonas aeruginosa May 03: WBC 14.3 hemoglobin 11.5 platelets 258 WBC 22.9 hemoglobin 13.4 platelets 326 potassium 5 BUN 20 creatinine 0.77 lactic acid 2.3 UA: Protein 2+ large leukoesterase WBC creatinine is 182, 70 to assess 3 bacteria many Coronavirus [PCR]: Not detected Chest x-ray film personally reviewed by me-questionable interstitial prominence/cannot rule out infiltrate. Assessment and plan: -Probable pneumonia, suspect gram-negative organism. IV cefepime. Blood culture-negative. -Acute UTI with cystitis secondary to Centeno catheter IV cefepime. Urine culture-pseudomonas aeruginosa -Right buttock decub wound: With surrounding cellulitis Follow with ID. May [address] donnelly. 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 -No code Patient spiked a fever yesterday evening. ID changed antibiotics to IV Zosyn. Other medications to continue. Per ID patient will need further I&D of the gluteal pressure ulcer.
--- NOTE | 2021-05-08 17:47 | P.PN ---
Progress Note - Text Progress Note Date: 05/08/21 Patient was seen and examined at bedside with nursing. Wound was examined with some purulent material noted along with a mixture of necrotic tissue and granulation tissue. This continues to appear to be a stage III, possibly stage IV decubitus ulcer. Case was also discussed with infectious disease and with the admitting physician, with recommendation to the patient's daughter (POA) for further debridement prior to outpatient management of the wound. There is reasonable concern from the patient's daughter about recovery from any anesthetic if this seizure were to be performed in an operating room setting, she is also concerned about bringing the patient to and from wound care center f or wound healing as the patient had significant episodes of confusion during his wound care trips for care for a heel wound. After evaluation of the wound, there is concern that patient may require multiple future debridements based on progression and wound healing and patient's overall debility and likely inability to maintain lack of pressure on this area. Option for bedside debridement was also presented to the patient and recommended based on her concerns. She would like to consider these options prior to making a decision and has refused further debridement for the time being. Teodoro Skaggs, DO
--- NOTE | 2021-05-08 18:47 | PN ---
PROGRESS NOTE DATE OF SERVICE: 05/08/2021 REASON FOR FOLLOWUP: 1. Left gluteal infected pressure ulcer. 2. UTI. INTERVAL HISTORY: The patient's overall fever pattern has improved. The patient is currently breathing comfortably. Denies having any chest pain. Occasional cough. No abdominal pain or worsening pain to the left gluteal area. PHYSICAL EXAMINATION: On examination, blood pressure 133/74 with a pulse of 59, temperature 98.7. He is 93% on room air. GENERAL DESCRIPTION: General description is an elderly male lying in bed in no distress. RESPIRATORY SYSTEM: Unlabored breathing. Clear to auscultation anteriorly. HEART: S1, S2. Regular rate and rhythm. ABDOMEN: Soft. No tenderness. Left gluteal area is currently dressed. LABS: Sedimentation rate of 66 with a CRP 14.4. DIAGNOSTIC IMPRESSION AND PLAN: Patient with a left gluteal infected pressure ulcer. Culture positive for strep, Pseudomonas and anaerobes. The patient is covered with Zosyn; to continue for now. Case was discussed with the surgeon for further debridement to help heal this wound. Continue supportive care. MMODL / IJN: [id number] /
[2021-05-08] MEDS: PRAMIPEXOLE 0.5 MG TAB PO SCH (19:41)
[2021-05-09] MEDS: PIPERACILLIN-TAZOBACTAM 3.375 GM in SODIUM CHLORIDE 0.9% 100 ML IVPB SCH ×3 (00:06→16:06)
[2021-05-09] MEDS: SODIUM CHLORIDE 0.9% 1,000 ML IV SCH ×4 (00:06→21:56)
[2021-05-09 06:21] LABS: Basophils % (A) 0 %; Eosinophils # (A) 0.4 k/uL (0-0.7); Eosinophils % (A) 3 %; HCT 36.4 % (39.0-53.0); HGB 11.8 gm/dL (13.0-17.5); Hypochromasia Slight; Lymphocytes # (A) 1.1 k/uL (1.0-4.8); Lymphocytes % (A) 10 %; MCH 29.7 pg (25.0-35.0); MCHC 32.4 g/dL (31.0-37.0); MCV 91.6 fL (80.0-100.0); Monocytes # (A) 0.4 k/uL (0-1.0); Monocytes % (A) 4 %; Neutrophils # (A) 9.2 k/uL (1.3-7.7); Neutrophils % (A) 82 %; Platelet Count 322 k/uL (150-450); RBC 3.98 m/uL (4.30-5.90); RDW 15.4 % (11.5-15.5); WBC 11.3 k/uL (3.8-10.6)
[2021-05-09] MEDS: APIXABAN 2.5 MG TABLET PO SCH ×2 (09:35→21:04)
[2021-05-09] MEDS: TAMSULOSIN 0.4 MG CAP.ER.24H PO SCH (09:35)
[2021-05-09] MEDS: METOPROLOL SUCCINATE (ER) 25 MG TAB.ER.24H PO SCH (09:35)
[2021-05-09] MEDS: ASPIRIN 81 MG PO SCH (09:35)
[2021-05-09] MEDS: CHOLECALCIFEROL 25 MCG (1000 IU) TABLET PO SCH (09:35)
[2021-05-09] MEDS: PANTOPRAZOLE 40 MG TABLET PO SCH (09:35)
[2021-05-09] MEDS: COLLAGENASE 250 UNIT/GM OINTMENT 30 GM TUBE TOPICAL SCH (09:36)
[2021-05-09] MEDS: OXYBUTYNIN XL 5 MG TAB.ER.24 PO SCH (09:36)
[2021-05-09] MEDS: MEMANTINE 10 MG TAB PO SCH ×2 (09:36→21:04)
--- NOTE | 2021-05-09 12:14 | P.CONS ---
History of Present Illness - Reason for Consult Consult date: 05/09/21 wound care - History of Present Illness This is an 89-year-old patient who has been seen previously by the wound care center for nonhealing ulceration to the right calcaneus. However he stopped seeking treatment back in January due to the commitment of wound care treatment. Patient is being seen today on [address]. for nonhealing ulceration to the left gluteus and the urinary meatus. Patient did undergo a bedside debridement of the left gluteus ulceration on however a another debridement was recommended yesterday and family declined at this time. The left gluteus ulceration has significant amount of necrotic tissue including slough and eschar, there is a significant odor to the site. The ulceration measures clementine roximately 3 x 3 x 2 cm. Tunneling is noted to the ulceration. There is no granulation seen within the wound bed. Urinary meatus is a nonhealing ulceration with fatty layer exposure measuring approximately 2 x 1.5 x 0.1 cm a urinary catheter is in place however there is urinary leakage and continuously. The right trochanter is a nonhealing ulceration Limited to skin breakdown related to pressure. Review Of Systems: Constitutional: No fever, no chills, no night sweats. No weight change. No weakness, fatigue or lethargy. No daytime sleepiness. Integumentary:reports wounds, no lesions. No rash or pruritus. No unusual bruising. No change in hair or nails. Physical exam: General Appearance: Alert, cooperative, no distress, appears stated age. Skin: See HPI all other Skin color, texture, tugor normal, no rashes or lesions. Neurologic: Alert oriented x3 Assessment: 1. Left gluteus ulceration pressure ulcer stage IV 2. Nonhealing ulceration with fatty layer exposure to urinary meatus 3. Pressure ulcer right trochanter stage I Plan: 1. Left gluteus ulceration would benefit from weekly debridement and possible wound VAC. We will continue with Santyl at this time. Change daily. 2. Urinary meatus ulceration apply triad to the site daily 3. Right trochanter ulceration apply triad daily. Thank you for the consultation any questions please contact the wound care center DNP note has been reviewed and discussed with Dr. Spencer and the impression and plan of care has been directed as dictated. Past Medical History Past Medical History: Heart Failure, Dementia, Memory Impairment Additional Past Medical History / Comment(s): prostate cancer, eliquis after pacemaker put in, low heart rate is why he needed pacemaker, right heel pressure ulcer, bruises easily from blood thinner History of Any Multi-Drug Resistant Organisms: None Reported Past Surgical History: Cholecystectomy, Pacemaker, Prostate Surgery Additional Past Surgical History / Comment(s): bilat knee replacements, shoulder surgery, carpal tunnel on right hand. Past Anesthesia/Blood Transfusion Reactions: No Reported Reaction Type of Cardiac Device: Permanent Pacemaker Device Placement Date:: 2019 Past Psychological History: Anxiety Smoking Status: Former smoker Past Alcohol Use History: None Reported Past Drug Use History: None Reported - Past Family History Father Additional Family Medical History / Comment(s): emphysema Mother Family Medical History: Dementia Sister(s) Family Medical History: Dementia Medications and Allergies Home Medications Medication Instructions Recorded Confirmed Type Apixaban [Eliquis] 2.5 mg PO BID 12/02/20 05/02/21 History Docusate [Colace] 100 mg PO Q48H 12/02/20 05/02/21 History Furosemide [Lasix] 20 mg PO DAILY PRN 12/02/20 05/02/21 History Memantine HCl 10 mg PO BID 12/02/20 05/02/21 History Metoprolol Succinate [Toprol XL] 25 mg PO DAILY 12/02/20 05/02/21 History Pramipexole [Mirapex] 0.5 mg PO HS 12/02/20 05/02/21 History QUEtiapine [SEROquel] 50 mg PO HS 12/02/20 05/02/21 History Cholecalciferol [Vitamin D3 (25 25 mcg PO DAILY 05/02/21 05/02/21 History Mcg = 1000 Iu)] Nitrofurantoin Monohyd/M-Cryst 100 mg PO Q12HR 05/02/21 05/02/21 History [Macrobid] Allergies Allergy/AdvReac Type Severity Reaction Status Date / Time No Known Allergies Allergy Verified 05/02/21 13:33 Physical Exam Vitals: Vital Signs Temp Pulse Resp BP BP Pulse Ox 05/09/21 08:00 96.7 F L 64 20 151/79 98 05/09/21 03:00 97.4 F L 59 L 17 160/81 94 L 05/08/21 20:00 97.9 F 65 18 145/63 98 08/16/21 14:00 98.7 F 59 L 18 133/74 93 L Intake and Output 05/08/21 05/09/21 05/09/21 22:59 06:59 14:59 Intake Total 540 780 Output Total 400 500 Balance 140 280 Intake: Intake, IV Titration 780 Amount Piperacillin-Tazobactam 3 100 .375 gm In Sodium Chloride 0.9% 100 ml @ 25 mls/hr IVPB Q8HR [facility] Rx# :[id number] Sodium Chloride 0.9% 1, 680 000 ml @ 130 mls/hr IV . Q7H42M [facility] Rx#:[id number] Oral 540 Output: Urine 400 500 Other: Voiding Method Indwelling Catheter # Bowel Movements 0 Results CBC & Chem 7: 05/09/21 05:52 05/07/21 04:56 Labs: Abnormal Lab Results - Last 24 Hours (Table) 05/09/21 Range/Units 05:52 WBC 11.3 H (3.8-10.6) k/uL RBC 3.98 L (4.30-5.90) m/uL Hgb 11.8 L (13.0-17.5) gm/dL Hct 36.4 L (39.0-53.0) % Neutrophils # 9.2 H (1.3-7.7) k/uL Microbiology - Last 24 Hours (Table) 05/07/21 16:02 Blood Culture - Preliminary Blood No Growth after 24 hours 05/02/21 10:20 Blood Culture - Final Blood No Growth after 144 hours 05/02/21 10:20 Blood Culture - Final Blood No Growth after 144 hours Assessment and Plan (1) Pressure ulcer of left buttock, stage 4 Current Visit: Yes Status: Acute Code(s): L89.324 - PRESSURE ULCER OF LEFT BUTTOCK, STAGE 4 SNOMED Code(s): 71663114944392669 (2) Pressure ulcer of right hip, stage 2 Current Visit: Yes Status: Acute Code(s): L89.212 - PRESSURE ULCER OF RIGHT HIP, STAGE 2 SNOMED Code(s): 761261529 (3) Non-pressure chronic ulcer of skin of other sites with fat layer exposed Current Visit: Yes Status: Acute Code(s): L98.492 - NON-PRS CHRONIC ULCER OF SKIN OF SITES W FAT LAYER EXPOSED SNOMED Code(s): 98134065
--- NOTE | 2021-05-09 15:46 | P.PN ---
Progress Note - Text Progress Note Date: 05/09/21 Chief Complaint: Fever History of presenting complaint: This is a 89-year-old patient who follows with visiting physicians, Dr. Walls. History is obtained by the daughter Amirah at the bedside. Had a baseline patient is uses wheelchair. 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 Macario. Patient also has a home care nurse. Patient developed a fever up to 102.3 with the last 24 hours. Patient has a gluteal abscess on the right buttock. Patient also is a Centeno catheter since September of this year. Patient's Centeno catheter was changed yesterday. Patient is able to recognize his daughter. But not able to give too much of any meaningful history. His appetite is okay. Incontinent of stool. No respiratory symptoms reported. No diarrhea. No abdominal pain. Admitted with bilateral pneumonia, acute UTI with cystitis secondary to Centeno catheter. On IV cefepime. Right buttock wound. May 03: Patient does have episodes of delirium. And acting out. Has a sitter. Ativan being used when necessary. Oral intake about 25%. Daughter at the bedside. Care was discussed. Right buttock wound for debridement. May 04: Patient continues to have episodes intermittently of agitation or delirium, multifactorial. Ativan when necessary being used. Awaiting surgical input for wound debridement. Currently sleepy. May 05: Patient underwent buttock wound debridement by Dr. Donnelly today. Pus and necrotic tissue removed. Daughter at the bedside. Discussed. Patient tired and sleepy following procedure. May 06: Patient more awake today. Answering simple questions. Daughter the bedside. Eating food. May 07: reclining in bed. Oral intake fluctuating. No pain. Buttock wound growing Pseudomonas and beta-hemolytic strep May 08: Wound is not healed currently. On IV Zosyn. Pain control. Oral intake up-and-down.. Tired. Spiked a fever yesterday evening. Later that day Dr. Donnelly from surgery called me: Daughter the hesitant about any surgery. I said I will talk to the daughter tomorrow. May 09: Patient in bed. Comfortable. Daughter the bedside. Had a lengthy discussion with her. Pros and cons of discussed. She is agreeable to the seat with debridement of the wound. I did speak to Dr. Donnelly:, Hold due to the bedside on . Review of systems could not be obtained because of patient's dementia. Relevant history as above Active Medications Acetaminophen (Acetaminophen Tab 325 Mg Tab) 650 mg PO Q6HR PRN PRN Reason: Mild Pain or Fever > 100.5 Last Admin: 05/07/21 14:11 Dose: 650 mg Documented by: Apixaban (Apixaban 2.5 Mg Tablet) 2.[address] [facility]; Protocol Last Admin: 05/09/21 09:35 Dose: 2.5 mg Documented by: Aspirin (Aspirin 81 Mg) [address] [facility] Last Admin: 05/09/21 09:35 Dose: 81 mg Documented by: Cholecalciferol (Cholecalciferol 25 Mcg (1000 Iu) Tablet) [address] [facility] Last Admin: 05/09/21 09:35 Dose: 50 mcg Documented by: Collagenase (Collagenase 250 Unit/Gm Ointment 30 Gm Tube) [address] [facility]; Protocol Last Admin: 05/09/21 09:36 Dose: 1 applic Documented by: Sodium Chloride (Saline 0.9%) 1,000 mls @ 130 mls/hr IV .Q7H42M [facility] Last Admin: 05/09/21 05:50 Dose: Not Given Documented by: Piperacillin Sod/Tazobactam (Sod 3.375 gm/ Sodium Chloride) 100 mls @ 25 mls/hr IVPB Q8HR [facility] Last Admin: 05/09/21 09:35 Dose: 25 mls/hr Documented by: Lactulose (Lactulose 20 Gm/30 Ml Cup) 20 gm PO BID PRN PRN Reason: Constipation Last Admin: 05/03/21 07:48 Dose: 20 gm Documented by: Lorazepam (Lorazepam 2 Mg/Ml Inj) 0.5 mg IV Q8HR PRN PRN Reason: Anxiety Last Admin: 05/08/21 07:47 Dose: 0.5 mg Documented by: Memantine (Memantine 10 Mg Tab) [address] [facility] Last Admin: 05/09/21 09:36 Dose: 10 mg Documented by: Metoprolol Succinate (Metoprolol Succinate (Er) 25 Mg Tab.Er.24h) [address] [facility] Last Admin: 05/09/21 09:35 Dose: 25 mg Documented by: Multi-Ingred Cream/Lotion/Oil/Oint (Hydrophilic Cream 180 Gm Tube) [address] [facility]; Protocol Naloxone HCl (Naloxone 0.4 Mg/Ml 1 Ml Vial) 0.2 mg IV Q2M PRN PRN Reason: Opioid Reversal Ondansetron HCl (Ondansetron 4 Mg/2 Ml Vial) 4 mg IVP Q8HR PRN PRN Reason: Nausea And Vomiting Oxybutynin Chloride (Oxybutynin Xl 5 Mg Tab.Er.24) [address] [facility] Last Admin: 05/09/21 09:36 Dose: 5 mg Documented by: Pantoprazole Sodium (Pantoprazole 40 Mg Tablet) 40 mg PO DAILY@0730 [facility] Last Admin: 05/09/21 09:35 Dose: 40 mg Documented by: Pramipexole Dihydrochloride (Pramipexole 0.5 Mg Tab) 0.5 mg PO [facility] Last Admin: 05/08/21 19:41 Dose: 0.5 mg Documented by: Quetiapine Fumarate (Quetiapine 50 Mg Tab) 50 mg PO [facility] Last Admin: 05/08/21 19:40 Dose: 50 mg Documented by: Tamsulosin HCl (Tamsulosin 0.4 Mg Cap.Er.24h) 0.[address] [facility] Last Admin: 05/09/21 09:35 Dose: 0.4 mg Documented by: Past medical history to include: Dementia, prostate cancer with surgery, third-degree heart block requiring permanent pacemaker, CHF EF of 55-60%, restless leg syndrome, generalized deconditioning, hard of hearing with hearing aids, wheelchair bound Social history: Patient is a former smoker. No alcohol. This is Dr. Macario. Uses a wheelchair. Family history: Emphysema Physical examination: VITAL SIGNS: 98, 59, 16, 158/80, 97% room air GENERAL: Reclining in bed, tired EYES: Pupils equal. Conjunctiva normal. NECK: JVD not raised; masses not palpable. HEART: First and second heart sounds are normal; no edema. LUNGS: Respiratory rate increased, decreased breath sounds MUSCULAR skeletal: Evidence of OA ABDOMEN: Soft, nontender, liver spleen not palpable, no masses palpable. Centeno catheter PSYCH: Answering simple questions DERMATOLOGICAL: Wound on the right buttock. With dressing INVESTIGATIONS, reviewed in the clinical context: May 09: WBC 11.3 hemoglobin 11.8 procalcitonin 7.01 May 07: WBC 14.5 hemoglobin 11.9 potassium 3.6 creatinine 0.6 ESR 66 CRP 14.4 May 04: Potassium 3.8 creatinine 0.8 Buttock wound culture: Pseudomonas aeruginosa Urine culture: Pseudomonas aeruginosa May 03: WBC 14.3 hemoglobin 11.5 platelets 258 WBC 22.9 hemoglobin 13.4 platelets 326 potassium 5 BUN 20 creatinine 0.77 lactic acid 2.3 UA: Protein 2+ large leukoesterase WBC creatinine is 182, 70 to assess 3 bacteria many Coronavirus [PCR]: Not detected Chest x-ray film personally reviewed by me-questionable interstitial prominence/cannot rule out infiltrate. Assessment and plan: -Probable pneumonia, suspect gram-negative organism. IV cefepime. Blood culture-negative. -Acute UTI with cystitis secondary to Centeno catheter IV cefepime. Urine culture-pseudomonas aeruginosa -Right buttock decub wound: With surrounding cellulitis : Slow to respond Follow with ID. May [address] donnelly. Culture positive for pseudomonas aeruginosa. 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 -No code Discussed with the daughter. As above. Agreeable to proceed with debridement. Discussed with Dr. Donnelly. Continue current treatment plan. Total time spent today about 40 minutes with over 25 minutes of discussion.
[2021-05-09] MEDS: HYDROPHILIC CREAM 180 GM TUBE TOPICAL SCH (17:49)
--- NOTE | 2021-05-09 19:33 | PN ---
PROGRESS NOTE DATE OF SERVICE: 05/09/2021 REASON FOR FOLLOWUP: 1. Infected left gluteal pressure ulcer. 2. UTI. INTERVAL HISTORY: The patient is afebrile. The patient is currently breathing comfortably. The patient is hemodynamically stable. No chest pain. No cough. No abdominal pain or any worsening pain to the left gluteal area. PHYSICAL EXAMINATION: Blood pressure 152/80 with a pulse of 69, temperature 98. He is 97% on room air. General description is an elderly male lying in bed in no distress. Respiratory system: Unlabored breathing, clear to auscultation anteriorly. Heart S1, S2. Regular rate and rhythm. Abdomen soft, no tenderness. Extremities: No edema of the feet. LABS: Hemoglobin 11.1, white count 11.3. DIAGNOSTIC IMPRESSION AND PLAN: Patient with infected left gluteal pressure ulcer. Culture with strep and Pseudomonas, also Pseudomonas UTI. Patient covered with Zosyn. ( ) repeated debridement of his wound and deep cultures. Continue Zosyn. He will need a PICC line for outpatient antibiotics. Continue supportive care. MMODL / IJN: [id number] /
[2021-05-09] MEDS: QUEtiapine 50 MG TAB PO SCH (21:04)
[2021-05-09] MEDS: PRAMIPEXOLE 0.5 MG TAB PO SCH (21:04)
[2021-05-09] MEDS: LORazepam 2 MG/ML INJ IV PRN (21:04)
[2021-05-10] MEDS: PIPERACILLIN-TAZOBACTAM 3.375 GM in SODIUM CHLORIDE 0.9% 100 ML IVPB SCH ×3 (02:06→15:12)
[2021-05-10] MEDS: SODIUM CHLORIDE 0.9% 1,000 ML IV SCH ×3 (02:08→20:40)
[2021-05-10 06:43] LABS: Glucose,Whole Blood 123 mg/dL (75-99)
[2021-05-10] MEDS: METOPROLOL SUCCINATE (ER) 25 MG TAB.ER.24H PO SCH (09:28)
[2021-05-10] MEDS: ASPIRIN 81 MG PO SCH (09:28)
[2021-05-10] MEDS: TAMSULOSIN 0.4 MG CAP.ER.24H PO SCH (09:28)
[2021-05-10] MEDS: APIXABAN 2.5 MG TABLET PO SCH ×2 (09:28→20:39)
[2021-05-10] MEDS: MEMANTINE 10 MG TAB PO SCH ×2 (09:28→20:39)
[2021-05-10] MEDS: CHOLECALCIFEROL 25 MCG (1000 IU) TABLET PO SCH (09:28)
[2021-05-10] MEDS: ACETAMINOPHEN TAB 325 MG TAB PO PRN (09:28)
[2021-05-10] MEDS: PANTOPRAZOLE 40 MG TABLET PO SCH (09:29)
[2021-05-10] MEDS: OXYBUTYNIN XL 5 MG TAB.ER.24 PO SCH (09:29)
[2021-05-10] MEDS: HYDROPHILIC CREAM 180 GM TUBE TOPICAL SCH (09:29)
[2021-05-10] MEDS: COLLAGENASE 250 UNIT/GM OINTMENT 30 GM TUBE TOPICAL SCH (09:31)
--- NOTE | 2021-05-10 18:00 | PN ---
PROGRESS NOTE DATE OF SERVICE: 05/10/2021 REASON FOR FOLLOWUP: 1. Left gluteal infected pressure ulcer. 2. UTI. INTERVAL HISTORY: The patient is afebrile. The patient is currently breathing comfortably on room air. Not a very good historian. No vomiting, diarrhea or other changes reported by the nursing staff. PHYSICAL EXAMINATION: On examination, blood pressure 146/65, pulse of 60, temperature 97.4. He is 98% on room air. GENERAL DESCRIPTION: General description is an elderly male lying in bed in no distress. RESPIRATORY SYSTEM: Unlabored breathing. Decreased intensity of breath sounds. No wheeze. HEART: S1, S2. Regular rate and rhythm. ABDOMEN: Soft. No tenderness. LABS: No new labs have been obtained today. DIAGNOSTIC IMPRESSION AND PLAN: Patient with a left gluteal infected pressure ulcer, waiting for surgical debridement. Cultures have been positive for strep, anaerobes and Pseudomonas. Continue Zosyn. He will need an outpatient antibiotic. Continue with supportive care. That should also cover his Pseudomonas UTI. MMODL / IJN: [id number] /
--- NOTE | 2021-05-10 19:15 | P.PN ---
Progress Note - Text Progress Note Date: 05/10/21 Chief Complaint: Fever History of presenting complaint: This is a 89-year-old patient who follows with visiting physicians, Dr. Walls. History is obtained by the daughter Amirah at the bedside. Had a baseline patient is uses wheelchair. 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 Macario. Patient also has a home care nurse. Patient developed a fever up to 102.3 with the last 24 hours. Patient has a gluteal abscess on the right buttock. Patient also is a Centeno catheter since September of this year. Patient's Centeno catheter was changed yesterday. Patient is able to recognize his daughter. But not able to give too much of any meaningful history. His appetite is okay. Incontinent of stool. No respiratory symptoms reported. No diarrhea. No abdominal pain. Admitted with bilateral pneumonia, acute UTI with cystitis secondary to Centeno catheter. On IV cefepime. Right buttock wound. May 03: Patient does have episodes of delirium. And acting out. Has a sitter. Ativan being used when necessary. Oral intake about 25%. Daughter at the bedside. Care was discussed. Right buttock wound for debridement. May 04: Patient continues to have episodes intermittently of agitation or delirium, multifactorial. Ativan when necessary being used. Awaiting surgical input for wound debridement. Currently sleepy. May 05: Patient underwent buttock wound debridement by Dr. Donnelly today. Pus and necrotic tissue removed. Daughter at the bedside. Discussed. Patient tired and sleepy following procedure. May 06: Patient more awake today. Answering simple questions. Daughter the bedside. Eating food. May 07: reclining in bed. Oral intake fluctuating. No pain. Buttock wound growing Pseudomonas and beta-hemolytic strep May 08: Wound is not healed currently. On IV Zosyn. Pain control. Oral intake up-and-down.. Tired. Spiked a fever yesterday evening. Later that day Dr. Donnelly from surgery called me: Daughter the hesitant about any surgery. I said I will talk to the daughter tomorrow. May 09: Patient in bed. Comfortable. Daughter the bedside. Had a lengthy discussion with her. Pros and cons of discussed. She is agreeable to the seat with debridement of the wound. I did speak to Dr. Donnelly:, Hold due to the bedside on . May 10: Reclining in bed. Comfortable. Oral intake fair. Pending repeat debridement. Review of systems could not be obtained because of patient's dementia. Relevant history as above Active Medications Acetaminophen (Acetaminophen Tab 325 Mg Tab) 650 mg PO Q6HR PRN PRN Reason: Mild Pain or Fever > 100.5 Last Admin: 05/10/21 09:28 Dose: 650 mg Documented by: Apixaban (Apixaban 2.5 Mg Tablet) 2.5 mg PO BID [facility]; Protocol Last Admin: 05/10/21 09:28 Dose: 2.5 mg Documented by: Aspirin (Aspirin 81 Mg) 81 mg PO DAILY [facility] Last Admin: 05/10/21 09:28 Dose: 81 mg Documented by: Cholecalciferol (Cholecalciferol 25 Mcg (1000 Iu) Tablet) 50 mcg PO DAILY [facility] Last Admin: 05/10/21 09:28 Dose: 50 mcg Documented by: Collagenase (Collagenase 250 Unit/Gm Ointment 30 Gm Tube) 1 applic TOPICAL DAILY [facility]; Protocol Last Admin: 05/10/21 09:31 Dose: 1 applic Documented by: Sodium Chloride (Saline 0.9%) 1,000 mls @ 130 mls/hr IV .Q7H42M [facility] Last Admin: 05/10/21 15:12 Dose: 130 mls/hr Documented by: Piperacillin Sod/Tazobactam (Sod 3.375 gm/ Sodium Chloride) 100 mls @ 25 mls/hr IVPB Q8HR [facility] Last Admin: 05/10/21 15:12 Dose: 25 mls/hr Documented by: Lactulose (Lactulose 20 Gm/30 Ml Cup) 20 gm PO BID PRN PRN Reason: Constipation Last Admin: 05/03/21 07:48 Dose: 20 gm Documented by: Lorazepam (Lorazepam 2 Mg/Ml Inj) 0.5 mg IV Q8HR PRN PRN Reason: Anxiety Last Admin: 05/09/21 21:04 Dose: 0.5 mg Documented by: Memantine (Memantine 10 Mg Tab) 10 mg PO BID [facility] Last Admin: 05/10/21 09:28 Dose: 10 mg Documented by: Metoprolol Succinate (Metoprolol Succinate (Er) 25 Mg Tab.Er.24h) 25 mg PO DAILY [facility] Last Admin: 05/10/21 09:28 Dose: 25 mg Documented by: Multi-Ingred Cream/Lotion/Oil/Oint (Hydrophilic Cream 180 Gm Tube) 1 applic TOPICAL DAILY [facility]; Protocol Last Admin: 05/10/21 09:29 Dose: 1 applic Documented by: Naloxone HCl (Naloxone 0.4 Mg/Ml 1 Ml Vial) 0.2 mg IV Q2M PRN PRN Reason: Opioid Reversal Ondansetron HCl (Ondansetron 4 Mg/2 Ml Vial) 4 mg IVP Q8HR PRN PRN Reason: Nausea And Vomiting Oxybutynin Chloride (Oxybutynin Xl 5 Mg Tab.Er.24) 5 mg PO DAILY [facility] Last Admin: 05/10/21 09:29 Dose: 5 mg Documented by: Pantoprazole Sodium (Pantoprazole 40 Mg Tablet) 40 mg PO DAILY@0730 [facility] Last Admin: 05/10/21 09:29 Dose: 40 mg Documented by: Pramipexole Dihydrochloride (Pramipexole 0.5 Mg Tab) 0.5 mg PO [facility] Last Admin: 05/09/21 21:04 Dose: 0.5 mg Documented by: Quetiapine Fumarate (Quetiapine 50 Mg Tab) 50 mg PO [facility] Last Admin: 05/09/21 21:04 Dose: 50 mg Documented by: Tamsulosin HCl (Tamsulosin 0.4 Mg Cap.Er.24h) 0.4 mg PO DAILY [facility] Last Admin: 05/10/21 09:28 Dose: 0.4 mg Documented by: Past medical history to include: Dementia, prostate cancer with surgery, third-degree heart block requiring permanent pacemaker, CHF EF of 55-60%, restless leg syndrome, generalized deconditioning, hard of hearing with hearing aids, wheelchair bound Social history: Patient is a former smoker. No alcohol. This is Dr. Macario. Uses a wheelchair. Family history: Emphysema Physical examination: VITAL SIGNS: 97.4, 60, 18, 146/75, 98% room air GENERAL: Reclining in bed, awake EYES: Pupils equal. Conjunctiva normal. NECK: JVD not raised; masses not palpable. HEART: First and second heart sounds are normal; no edema. LUNGS: Respiratory rate increased, decreased breath sounds MUSCULAR skeletal: Evidence of OA ABDOMEN: Soft, nontender, liver spleen not palpable, no masses palpable. Centeno catheter PSYCH: Answering simple questions DERMATOLOGICAL: Wound on the right buttock. With dressing INVESTIGATIONS, reviewed in the clinical context: May 09: WBC 11.3 hemoglobin 11.8 procalcitonin 7.01 May 07: WBC 14.5 hemoglobin 11.9 potassium 3.6 creatinine 0.6 ESR 66 CRP 14.4 May 04: Potassium 3.8 creatinine 0.8 Buttock wound culture: Pseudomonas aeruginosa Urine culture: Pseudomonas aeruginosa May 03: WBC 14.3 hemoglobin 11.5 platelets 258 WBC 22.9 hemoglobin 13.4 platelets 326 potassium 5 BUN 20 creatinine 0.77 lactic acid 2.3 UA: Protein 2+ large leukoesterase WBC creatinine is 182, 70 to assess 3 bacteria many Coronavirus [PCR]: Not detected Chest x-ray film personally reviewed by me-questionable interstitial prominence/cannot rule out infiltrate. Assessment and plan: -Probable pneumonia, suspect gram-negative organism: Clinically better IV cefepime. Blood culture-negative. -Acute UTI with cystitis secondary to Centeno catheter IV cefepime. Urine culture-pseudomonas aeruginosa -Right buttock decub wound: With surrounding cellulitis : Slow to respond Follow with ID. May [address] donnelly. Culture positive for pseudomonas aeruginosa. 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 -No code Continue IV cefepime. Repeat I&D of the buttock wound tomorrow. Other medications to continue.
[2021-05-10] MEDS: QUEtiapine 50 MG TAB PO SCH (20:39)
[2021-05-10] MEDS: PRAMIPEXOLE 0.5 MG TAB PO SCH (20:39)
[2021-05-11] MEDS: PIPERACILLIN-TAZOBACTAM 3.375 GM in SODIUM CHLORIDE 0.9% 100 ML IVPB SCH ×3 (01:09→16:43)
[2021-05-11] MEDS: SODIUM CHLORIDE 0.9% 1,000 ML IV SCH ×3 (06:28→20:20)
[2021-05-11] MEDS: LORazepam 2 MG/ML INJ IV PRN ×2 (06:41→17:56)
[2021-05-11] MEDS: TAMSULOSIN 0.4 MG CAP.ER.24H PO SCH (08:41)
[2021-05-11] MEDS: ASPIRIN 81 MG PO SCH (08:41)
[2021-05-11] MEDS: CHOLECALCIFEROL 25 MCG (1000 IU) TABLET PO SCH (08:41)
[2021-05-11] MEDS: COLLAGENASE 250 UNIT/GM OINTMENT 30 GM TUBE TOPICAL SCH (08:42)
[2021-05-11] MEDS: HYDROPHILIC CREAM 180 GM TUBE TOPICAL SCH (08:42)
[2021-05-11] MEDS: MEMANTINE 10 MG TAB PO SCH ×2 (08:42→20:04)
[2021-05-11] MEDS: METOPROLOL SUCCINATE (ER) 25 MG TAB.ER.24H PO SCH (08:42)
[2021-05-11] MEDS: PANTOPRAZOLE 40 MG TABLET PO SCH (08:42)
[2021-05-11] MEDS: OXYBUTYNIN XL 5 MG TAB.ER.24 PO SCH (08:42)
[2021-05-11] MEDS: APIXABAN 2.5 MG TABLET PO SCH ×2 (08:42→20:04)
--- NOTE | 2021-05-11 13:42 | P.PCN ---
Date of Procedure: 05/11/21 Preoperative Diagnosis: Stage III left gluteal decubitus ulcer Postoperative Diagnosis: Stage IV left gluteal decubitus ulcer Procedure(s) Performed: Excisional debridement of left gluteal decubitus ulcer Anesthesia: local Surgeon: Teodoro Skaggs Pathology: none sent Condition: stable Disposition: no change Indications for Procedure: 89-year-old male with significant debility is admitted for fever. He did undergo debridement of left gluteal decubitus ulcer approximately 1 week ago. Infectious disease recommended further debridement and possible wound VAC placement as an outpatient. When discussed with the daughter, initially she did not provide consent that she was concerned about the prolonged implications of wound care. After further discussion with Dr. Jenkins, patient's daughter has provided consent and is amenable. She is at bedside during the procedure. Plan is for debridement of this wound at bedside as the patient's daughter has significant concern about confusion and altered mental status after anesthetic is administered. Patient is also not a candidate for spinal anesthetic as he is on Eliquis and would require multiple days off of anticoagulation. Holding anticoagulation was not recommended by internal medicine. Therefore, plan is for bedside debridement. Risks, benefits and alternatives were provided. Operative Findings: Wound bed of left gluteal decubitus ulcer measures 3 cm in depth, 3.5 cm in width and 4 cm in length. Although previously noted is a decubitus stage III ulcer, after debridement, bone is noted to be exposed and therefore this is a stage IV ulcer Description of Procedure: The patient was placed in right lateral decubitus position. He was prepped and draped in regular sterile fashion. Sharp excisional debridement was performed with 11 blade scalpel and significant amount of necrotic tissue and slough was excised from the wound and the wound bed. The wound edges were noted to have bleeding along with multiple portions of the wound bed. Some slough is still remaining as patient was beginning to have discomfort with the procedure. Final measurement of the wound is 3 x 3.5 x 4 cm. Continue now with local wound care with Santyl as further debridement would likely not be amenable at bedside.
[2021-05-11] MEDS ORDERED: MORPHINE SULFATE 2 MG/ML SYRINGE IVP STA (14:08)
--- NOTE | 2021-05-11 16:44 | P.PN ---
Progress Note - Text Progress Note Date: 05/11/21 Chief Complaint: Fever History of presenting complaint: This is a 89-year-old patient who follows with visiting physicians, Dr. Walls. History is obtained by the daughter Amirah at the bedside. Had a baseline patient is uses wheelchair. 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 Macario. Patient also has a home care nurse. Patient developed a fever up to 102.3 with the last 24 hours. Patient has a gluteal abscess on the right buttock. Patient also is a Centeno catheter since September of this year. Patient's Centeno catheter was changed yesterday. Patient is able to recognize his daughter. But not able to give too much of any meaningful history. His appetite is okay. Incontinent of stool. No respiratory symptoms reported. No diarrhea. No abdominal pain. Admitted with bilateral pneumonia, acute UTI with cystitis secondary to Centeno catheter. On IV cefepime. Right buttock wound. May 03: Patient does have episodes of delirium. And acting out. Has a sitter. Ativan being used when necessary. Oral intake about 25%. Daughter at the bedside. Care was discussed. Right buttock wound for debridement. May 04: Patient continues to have episodes intermittently of agitation or delirium, multifactorial. Ativan when necessary being used. Awaiting surgical input for wound debridement. Currently sleepy. May 05: Patient underwent buttock wound debridement by Dr. Donnelly today. Pus and necrotic tissue removed. Daughter at the bedside. Discussed. Patient tired and sleepy following procedure. May 06: Patient more awake today. Answering simple questions. Daughter the bedside. Eating food. May 07: reclining in bed. Oral intake fluctuating. No pain. Buttock wound growing Pseudomonas and beta-hemolytic strep May 08: Wound is not healed currently. On IV Zosyn. Pain control. Oral intake up-and-down.. Tired. Spiked a fever yesterday evening. Later that day Dr. Donnelly from surgery called me: Daughter the hesitant about any surgery. I said I will talk to the daughter tomorrow. May 09: Patient in bed. Comfortable. Daughter the bedside. Had a lengthy discussion with her. Pros and cons of discussed. She is agreeable to the seat with debridement of the wound. I did speak to Dr. Donnelly:, Hold due to the bedside on . May 10: Reclining in bed. Comfortable. Oral intake fair. Pending repeat debridement. May 11: Repeat debridement was carried by Dr. donnelly today. Daughter the bedside. No other new issues. Review of systems could not be obtained because of patient's dementia. Relevant history as above Active Medications Acetaminophen (Acetaminophen Tab 325 Mg Tab) 650 mg PO Q6HR PRN PRN Reason: Mild Pain or Fever > 100.5 Last Admin: 05/10/21 09:28 Dose: 650 mg Documented by: Apixaban (Apixaban 2.5 Mg Tablet) 2.5 mg PO BID [facility]; Protocol Last Admin: 05/11/21 08:42 Dose: 2.5 mg Documented by: Aspirin (Aspirin 81 Mg) 81 mg PO DAILY [facility] Last Admin: 05/11/21 08:41 Dose: 81 mg Documented by: Cholecalciferol (Cholecalciferol 25 Mcg (1000 Iu) Tablet) 50 mcg PO DAILY [facility] Last Admin: 05/11/21 08:41 Dose: 50 mcg Documented by: Collagenase (Collagenase 250 Unit/Gm Ointment 30 Gm Tube) 1 applic TOPICAL DAILY [facility]; Protocol Last Admin: 05/11/21 08:42 Dose: 1 applic Documented by: Sodium Chloride (Saline 0.9%) 1,000 mls @ 130 mls/hr IV .Q7H42M [facility] Last Admin: 05/11/21 14:17 Dose: Not Given Documented by: Piperacillin Sod/Tazobactam (Sod 3.375 gm/ Sodium Chloride) 100 mls @ 25 mls/hr IVPB Q8HR [facility] Last Admin: 05/11/21 16:43 Dose: 25 mls/hr Documented by: Lactulose (Lactulose 20 Gm/30 Ml Cup) 20 gm PO BID PRN PRN Reason: Constipation Last Admin: 05/03/21 07:48 Dose: 20 gm Documented by: Lorazepam (Lorazepam 2 Mg/Ml Inj) 0.5 mg IV Q8HR PRN PRN Reason: Anxiety Last Admin: 05/11/21 06:41 Dose: 0.5 mg Documented by: Memantine (Memantine 10 Mg Tab) 10 mg PO BID [facility] Last Admin: 05/11/21 08:42 Dose: 10 mg Documented by: Metoprolol Succinate (Metoprolol Succinate (Er) 25 Mg Tab.Er.24h) 25 mg PO DAILY [facility] Last Admin: 05/11/21 08:42 Dose: 25 mg Documented by: Multi-Ingred Cream/Lotion/Oil/Oint (Hydrophilic Cream 180 Gm Tube) 1 applic TOPICAL DAILY [facility]; Protocol Last Admin: 05/11/21 08:42 Dose: 1 applic Documented by: Naloxone HCl (Naloxone 0.4 Mg/Ml 1 Ml Vial) 0.2 mg IV Q2M PRN PRN Reason: Opioid Reversal Ondansetron HCl (Ondansetron 4 Mg/2 Ml Vial) 4 mg IVP Q8HR PRN PRN Reason: Nausea And Vomiting Oxybutynin Chloride (Oxybutynin Xl 5 Mg Tab.Er.24) 5 mg PO DAILY [facility] Last Admin: 05/11/21 08:42 Dose: 5 mg Documented by: Pantoprazole Sodium (Pantoprazole 40 Mg Tablet) 40 mg PO DAILY@0730 [facility] Last Admin: 05/11/21 08:42 Dose: 40 mg Documented by: Pramipexole Dihydrochloride (Pramipexole 0.5 Mg Tab) 0.5 mg PO [facility] Last Admin: 05/10/21 20:39 Dose: 0.5 mg Documented by: Quetiapine Fumarate (Quetiapine 50 Mg Tab) 50 mg PO HS [facility] Last Admin: 05/10/21 20:39 Dose: 50 mg Documented by: Tamsulosin HCl (Tamsulosin 0.4 Mg Cap.Er.24h) 0.4 mg PO DAILY [facility] Last Admin: 05/11/21 08:41 Dose: 0.4 mg Documented by: Past medical history to include: Dementia, prostate cancer with surgery, third-degree heart block requiring permanent pacemaker, CHF EF of 55-60%, restless leg syndrome, generalized deconditioning, hard of hearing with hearing aids, wheelchair bound Social history: Patient is a former smoker. No alcohol. This is Dr. Macario. Uses a wheelchair. Family history: Emphysema Physical examination: VITAL SIGNS: 97.5, 59, 20, 161/86, 98% room air GENERAL: Reclining in bed, awake EYES: Pupils equal. Conjunctiva normal. NECK: JVD not raised; masses not palpable. HEART: First and second heart sounds are normal; no edema. LUNGS: Respiratory rate increased, decreased breath sounds MUSCULAR skeletal: Evidence of OA ABDOMEN: Soft, nontender, liver spleen not palpable, no masses palpable. Centeno catheter PSYCH: Answering simple questions DERMATOLOGICAL: Wound on the right buttock. With dressing INVESTIGATIONS, reviewed in the clinical context: May 09: WBC 11.3 hemoglobin 11.8 procalcitonin 7.01 May 07: WBC 14.5 hemoglobin 11.9 potassium 3.6 creatinine 0.6 ESR 66 CRP 14.4 May 04: Potassium 3.8 creatinine 0.8 Buttock wound culture: Pseudomonas aeruginosa Urine culture: Pseudomonas aeruginosa May 03: WBC 14.3 hemoglobin 11.5 platelets 258 WBC 22.9 hemoglobin 13.4 platelets 326 potassium 5 BUN 20 creatinine 0.77 lactic acid 2.3 UA: Protein 2+ large leukoesterase WBC creatinine is 182, 70 to assess 3 bacteria many Coronavirus [PCR]: Not detected Chest x-ray film personally reviewed by me-questionable interstitial prominence/cannot rule out infiltrate. Assessment and plan: -Probable pneumonia, suspect gram-negative organism: Clinically better IV cefepime. Blood culture-negative. -Acute UTI with cystitis secondary to Centeno catheter IV cefepime. Urine culture-pseudomonas aeruginosa -Right buttock decub wound: With surrounding cellulitis : Slow to respond Follow with ID. May [address] donnelly. Culture positive for pseudomonas aeruginosa. Repeat debridement done today on May 11. 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 -No code Continue IV cefepime. Will discuss with ID about discharge antibiotics. Other medications to continue.
[2021-05-11] MEDS: PRAMIPEXOLE 0.5 MG TAB PO SCH (20:04)
[2021-05-11] MEDS: ACETAMINOPHEN TAB 325 MG TAB PO PRN (20:04)
[2021-05-11] MEDS: QUEtiapine 50 MG TAB PO SCH (20:04)
--- NOTE | 2021-05-11 23:02 | PN ---
PROGRESS NOTE DATE OF SERVICE: 05/11/2021 REASON FOR FOLLOWUP: 1. Left gluteal stage III pressure ulcer. 2. Urinary tract infection. INTERVAL HISTORY: The patient is afebrile. The patient is status post bedside debridement of his wound today. The patient is breathing comfortably. No chest pain or cough. No abdominal pain or diarrhea. PHYSICAL EXAMINATION: Blood pressure 144/69, pulse of 70, temperature 97. He is 95% on room air. GENERAL DESCRIPTION: General description is an elderly male lying in bed in no distress. RESPIRATORY SYSTEM: Unlabored breathing. Clear to auscultation anteriorly. HEART: S1, S2. Regular rate and rhythm. ABDOMEN: Soft. No tenderness. EXTREMITIES: No edema of the feet. LABS: No new labs have been obtained today. DIAGNOSTIC IMPRESSION AND PLAN: Patient with a left gluteal stage III pressure ulcer, status post debridement. Culture with Pseudomonas and strep and anaerobes along with Pseudomonas urinary tract infection, on Zosyn. Transition to cefepime 2 grams q.12 and oral Flagyl on discharge. PICC line on for tomorrow and close outpatient followup. MMODL / IJN: [id number] /
[2021-05-12] MEDS: PIPERACILLIN-TAZOBACTAM 3.375 GM in SODIUM CHLORIDE 0.9% 100 ML IVPB SCH ×2 (00:56→07:29)
[2021-05-12] MEDS: LORazepam 2 MG/ML INJ IV PRN (05:04)
[2021-05-12] MEDS: SODIUM CHLORIDE 0.9% 1,000 ML IV SCH ×2 (05:43→12:40)
[2021-05-12] MEDS: COLLAGENASE 250 UNIT/GM OINTMENT 30 GM TUBE TOPICAL SCH (07:22)
[2021-05-12 07:27] VITALS: PULSE 62
[2021-05-12] MEDS: APIXABAN 2.5 MG TABLET PO SCH (07:27)
[2021-05-12] MEDS: CHOLECALCIFEROL 25 MCG (1000 IU) TABLET PO SCH (07:28)
[2021-05-12] MEDS: ASPIRIN 81 MG PO SCH (07:28)
[2021-05-12] MEDS: METOPROLOL SUCCINATE (ER) 25 MG TAB.ER.24H PO SCH (07:28)
[2021-05-12] MEDS: TAMSULOSIN 0.4 MG CAP.ER.24H PO SCH (07:28)
[2021-05-12] MEDS: PANTOPRAZOLE 40 MG TABLET PO SCH (07:28)
[2021-05-12] MEDS: OXYBUTYNIN XL 5 MG TAB.ER.24 PO SCH (07:28)
[2021-05-12] MEDS: MEMANTINE 10 MG TAB PO SCH (07:28)
[2021-05-12] MEDS ORDERED: LIDOCAINE 1% INJ 10MG/ML (20 ML MDV) SQ ONE (10:34)
--- NOTE | 2021-05-12 11:02 | IR ---
PICC LINE PLACEMENT: HISTORY: Infection requiring long-term antibiotic therapy PROCEDURE: Ultrasound and fluoroscopic guidance of PICC line placement. COMPLICATIONS: None ANESTHESIA: 1. 1% Lidocaine locally. FINDINGS/TECHNIQUE: The procedure was explained to the patient. The risks, complications, benefits and alternatives were discussed and any questions were answered. Informed consent was obtained. The patient was placed supine on the fluoroscopic table and prepped and draped in the usual sterile fash ion. Utilizing a 21 gauge needle and sonographic and fluoroscopic guidance, access in the right bas ilic vein was achieved and there is placement of a 0.018 guidewire. The vein is patent. A 4-F sheat h was placed over the guidewire. The guidewire and dilator were removed and a 4-F. PICC line was aroldo néstor through the sheath with the tip at the level of the SVC. The sheath was removed, the catheter wa s flushed and sutured into position. The patient was stable throughout the procedure and remained st able upon discharge from the Department of Radiology. The vein puncture was patent under ultrasound. A brooks scale image was obtained to document patency of the vein punctured. All elements of the maximal barrier technique were utilized. FLUOROSCOPY TIME: 2.4 minutes and 1 images submitted IMPRESSION: Successful PICC line placement under ultrasound and fluoroscopic guidance.
[2021-05-12] MEDS ORDERED: CEFEPIME 2 GM in SODIUM CHLORIDE 0.9% 100 ML IVPB SCH (11:45)
[2021-05-12] MEDS: HYDROPHILIC CREAM 180 GM TUBE TOPICAL SCH (12:40)
--- NOTE | 2021-05-12 14:19 | PN ---
PROGRESS NOTE DATE OF SERVICE: 05/12/2021 REASON FOR FOLLOWUP: 1. Left gluteal infected . 2. Urinary tract infection. INTERVAL HISTORY: Patient is afebrile. The patient is feeling sleepy, lethargic, unable to provide any history. No vomiting, diarrhea or other changes reported by the nursing staff. PHYSICAL EXAMINATION: Blood pressure 155/48 with a pulse of 62 and temperature 97.5. He is 94% on room air. General description is an elderly male lying in bed in no distress. Respiratory system: Unlabored breathing, clear to auscultation anteriorly. Heart S1, S2. Regular rate and rhythm. Abdomen: Soft. No tenderness. LABS: No new labs have been obtained today. DIAGNOSTIC IMPRESSION AND PLAN: Patient with infected left gluteal pressure ulcer, status post debridement. Cultures with pseudomonas beta hemolytic strep and Anaerobes. Plan will be for cefepime and oral Flagyl on discharge for a week. Local wound care with wound VAC. Advised to follow with me in the wound care center next week. Continue supportive care. MMODL / IJN: [id number] /
[2021-05-12 15:24] VITALS: BP 157/71; RESP 20; TEMP 97.3
--- NOTE | 2021-05-12 22:30 | P.DS ---
Providers Date of admission: 05/02/21 12:29 Expected date of discharge: 05/12/21 Attending physician: William Jenkins Consults: 05/02/21 12:50 Consult Physician Urgent Consulting Provider: Torres Lujan Consult Reason/Comments: Fever, UTI, sacral ulcer Do you want consulting provider notified?: Yes 05/03/21 16:25 Consult Physician Routine Consulting Provider: Teodoro Donnelly Consult Reason/Comments: left gluteal ulcer debridment Do you want consulting provider notified?: Yes Primary care physician: Jose Manuel [facility] Course: Chief Complaint: Fever History of presenting complaint: This is a 89-year-old patient who follows with visiting physicians, Dr. Walls. History is obtained by the daughter Amirah at the bedside. Had a baseline augustine ent is uses wheelchair. 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 Macario. Patient also has a home care nurse. Patient developed a fever up to 102.3 with the last 24 hours. Patient has a gluteal abscess on the right buttock. Patient also is a Centeno catheter since September of this year. Patient's Centeno catheter was changed yesterday. Patient is able to recognize his daughter. But not able to give too much of any meaningful history. His appetite is okay. Incontinent of stool. No respiratory symptoms reported. No diarrhea. No abdominal pain. Admitted with bilateral pneumonia, acute UTI with cystitis secondary to Centeno catheter. On IV cefepime. Right buttock wound. May 03: Patient does have episodes of delirium. And acting out. Has a sitter. Ativan being used when necessary. Oral intake about 25%. Daughter at the bedside. Care was discussed. Right buttock wound for debridement. May 04: Patient continues to have episodes intermittently of agitation or delirium, multifactorial. Ativan when necessary being used. Awaiting surgical input for wound debridement. Currently sleepy. May 05: Patient underwent buttock wound debridement by Dr. Donnelly today. Pus and necrotic tissue removed. Daughter at the bedside. Discussed. Patient tired and sleepy following procedure. May 06: Patient more awake today. Answering simple questions. Daughter the bedside. Eating food. May 07: reclining in bed. Oral intake fluctuating. No pain. Buttock wound growing Pseudomonas and beta-hemolytic strep May 08: Wound is not healed currently. On IV Zosyn. Pain control. Oral intake up-and-down.. Tired. Spiked a fever yesterday evening. Later that day Dr. Donnelly from surgery called me: Daughter the hesitant about any surgery. I said I will talk to the daughter tomorrow. May 09: Patient in bed. Comfortable. Daughter the bedside. Had a lengthy discussion with her. Pros and cons of discussed. She is agreeable to the seat with debridement of the wound. I did speak to Dr. Donnelly:, Hold due to the bedside on . May 10: Reclining in bed. Comfortable. Oral intake fair. Pending repeat debridement. May 11: Repeat debridement was carried by Dr. donnelly today. Daughter the bedside. No other new issues. May 12: No new issues. Patient discharged on cefepime for 28 days and Flagyl for the same. Discussed with case specialist. wound VAC for home Discussion and discharge planning more than 35 minutes Consultation: Dr. Lujan from ID Dr. Donnelly from surgery Past medical history to include: Dementia, prostate cancer with surgery, third-degree heart block requiring permanent pacemaker, CHF EF of 55-60%, restless leg syndrome, generalized deconditioning, hard of hearing with hearing aids, wheelchair bound Social history: Patient is a former smoker. No alcohol. This is Dr. Macario. Uses a wheelchair. Family history: Emphysema Physical examination: VITAL SIGNS: Afebrile, 62, 20, 157/71, 94% room air GENERAL: Reclining in bed, awake EYES: Pupils equal. Conjunctiva normal. NECK: JVD not raised; masses not palpable. HEART: First and second heart sounds are normal; no edema. LUNGS: Respiratory rate increased, decreased breath sounds MUSCULAR skeletal: Evidence of OA ABDOMEN: Soft, nontender, liver spleen not palpable, no masses palpable. Centeno catheter PSYCH: Answering simple questions DERMATOLOGICAL: Wound on the right buttock. With dressing INVESTIGATIONS, reviewed in the clinical context: May 09: WBC 11.3 hemoglobin 11.8 procalcitonin 7.01 May 07: WBC 14.5 hemoglobin 11.9 potassium 3.6 creatinine 0.6 ESR 66 CRP 14.4 May 04: Potassium 3.8 creatinine 0.8 Buttock wound culture: Pseudomonas aeruginosa Urine culture: Pseudomonas aeruginosa May 03: WBC 14.3 hemoglobin 11.5 platelets 258 WBC 22.9 hemoglobin 13.4 platelets 326 potassium 5 BUN 20 creatinine 0.77 lactic acid 2.3 UA: Protein 2+ large leukoesterase WBC creatinine is 182, 70 to assess 3 bacteria many Coronavirus [PCR]: Not detected Chest x-ray film personally reviewed by me-questionable interstitial prominence/cannot rule out infiltrate. Assessment and plan: -Probable pneumonia, suspect gram-negative organism: Clinically better IV cefepime. Blood culture-negative. -Acute UTI with cystitis secondary to Centeno catheter IV cefepime. Urine culture-pseudomonas aeruginosa -Right buttock decub wound: With surrounding cellulitis : Slow to respond Follow with ID. May [address] donnelly. Culture positive for pseudomonas aeruginosa. Repeat debridement done on May 11. Wound VAC for home -Advanced cognitive impairment from late-onset Alzheimer's dementia Continue with Isabella Thornton -Restless leg syndrome 0.5 mg daily at bedtime -Permanent pacemaker for complete heart block -paroxysmal atrial fibrillation, 9 sinus rhythm On eliquis -Chronic medical deconditioning Chronically on wheelchair. -No code Disposition: Home Plan - Discharge Summary Discharge Rx Participant: No New Discharge Prescriptions: New metroNIDAZOLE [Flagyl] 500 mg PO TID #90 tab Aspirin 81 mg PO DAILY #30 chew Tamsulosin [Flomax] 0.4 mg PO DAILY #30 cap.er.24h Collagenase [Santyl] 1 applic TOPICAL DAILY gm Hydrophilic Cream [Triad Cream] 1 applic TOPICAL DAILY applic Cefepime [Maxipime] 2 gm IVPB Q12H #56 vial Oxybutynin Xl [Ditropan XL] 5 mg PO DAILY #30 tab.er.24 Pantoprazole [Protonix] 40 mg PO DAILY@0730 #30 tablet. Continue QUEtiapine [SEROquel] 50 mg PO HS Pramipexole [Mirapex] 0.5 mg PO HS Metoprolol Succinate [Toprol XL] 25 mg PO DAILY Memantine HCl 10 mg PO BID Apixaban [Eliquis] 2.5 mg PO BID Cholecalciferol [Vitamin D3 (25 Mcg = 1000 Iu)] 25 mcg PO DAILY Discontinued Furosemide [Lasix] 20 mg PO DAILY PRN PRN Reason: Edema Docusate [Colace] 100 mg PO Q48H Nitrofurantoin Monohyd/M-Cryst [Macrobid] 100 mg PO Q12HR Discharge Medication List Apixaban [Eliquis] 2.5 mg PO BID 12/02/20 [History] Memantine HCl 10 mg PO BID 12/02/20 [History] Metoprolol Succinate [Toprol XL] 25 mg PO DAILY 12/02/20 [History] Pramipexole [Mirapex] 0.5 mg PO HS 12/02/20 [History] QUEtiapine [SEROquel] 50 mg PO HS 12/02/20 [History] Cholecalciferol [Vitamin D3 (25 Mcg = 1000 Iu)] 25 mcg PO DAILY 05/02/21 [History] Cefepime [Maxipime] 2 gm IVPB Q12H #56 vial 05/11/21 [Rx] metroNIDAZOLE [Flagyl] 500 mg PO TID #90 tab 05/11/21 [Rx] Aspirin 81 mg PO DAILY #30 chew 05/12/21 [Rx] Collagenase [Santyl] 1 applic TOPICAL DAILY gm 05/12/21 [Rx] Hydrophilic Cream [Triad Cream] 1 applic TOPICAL DAILY applic 05/12/21 [Rx] Oxybutynin Xl [Ditropan XL] 5 mg PO DAILY #30 tab.er.24 05/12/21 [Rx] Pantoprazole [Protonix] 40 mg PO DAILY@0730 #30 tablet.dr 05/12/21 [Rx] Tamsulosin [Flomax] 0.4 mg PO DAILY #30 cap.er.24h 05/12/21 [Rx] Follow up Appointment(s)/Referral(s): [facility], [NON-STAFF] - ([facility] will call you to arrange the time for your first visit on 05/13/21. They will apply the wound vac and begin IV antibiotic teaching. ) [facility] [NON-STAFF] - ([facility] will deliver supplies this evening, they will call prior to delivery. ) Jose Manuel Walls MD [Primary Care Provider] - 05/15/21 (Patient and family to call office after discharge to get date adn time of appointment ) Torres Lujan MD [STAFF PHYSICIAN] - 2 Weeks (patient to call office and make appointment after discharge ) Ambulatory/Diagnostic Orders: Basic Metabolic Panel [LAB.AMB] Location: None Selected C Reactive Protein [LAB.AMB] Location: None Selected Complete Blood Count w/diff [LAB.AMB] Location: None Selected Erythrocyte Sedimentation Rate [LAB.AMB] Location: None Selected Activity/Diet/Wound Care/Special Instructions: Per Dr. Lujan: patient is going home on Cefepime 2gm IV q12 hours for 4 weeks. [facility] will deliver supplies to patient's house on: 05/12/21. *Ambulance form on pt's chart. Call [facility] at discharge to arrange transport home - [phone]. [facility] is the wound vac provider. Please contact them with any questions regarding the wound vac: [phone] Lujan in wound care center next week , call [phone] to make an appointment Discharge Disposition: HOME WITH HOME HEALTH SERVICES
== END 2021-05-12 16:49 | disposition home health service (06) | DRG 673 ==
LOC: EC 09:39 → 4SSUR 12:29
PROVIDERS: ADMIT Hospitalist; ATTEND Hospitalist
PROC: 0JB90ZZ Excision of Buttock Subcutaneous Tissue and Fascia, Open Approach (ICD-10-PCS; 2021-05-04)
PROC: 02HV33Z Insertion of Infusion Device into Superior Vena Cava, Percutaneous Approach (ICD-10-PCS; principal; 2021-05-12 10:10)
DX: T83.518A Infection and inflammatory reaction due to other urinary catheter, initial encounter (principal); L89.323 Pressure ulcer of left buttock, stage 3; A41.9 Sepsis, unspecified organism; J15.6 Pneumonia due to other Gram-negative bacteria; L03.90 Cellulitis, unspecified; L02.31 Cutaneous abscess of buttock; J84.9 Interstitial pulmonary disease, unspecified; Z20.822 Contact with and (suspected) exposure to COVID-19; F05 Delirium due to known physiological condition; I50.32 Chronic diastolic (congestive) heart failure; L03.317 Cellulitis of buttock; I44.2 Atrioventricular block, complete; N30.90 Cystitis, unspecified without hematuria; L98.492 Non-pressure chronic ulcer of skin of other sites with fat layer exposed; Z85.46 Personal history of malignant neoplasm of prostate; Z87.891 Personal history of nicotine dependence; Z96.653 Presence of artificial knee joint, bilateral; Z99.3 Dependence on wheelchair; Z82.5 Family history of asthma and other chronic lower respiratory diseases; Z79.899 Other long term (current) drug therapy; Z79.82 Long term (current) use of aspirin; Z79.2 Long term (current) use of antibiotics; Z79.01 Long term (current) use of anticoagulants; Y84.6 Urinary catheterization as the cause of abnormal reaction of the patient, or of later complication, without mention of misadventure at the time of the procedure; L98.429 Non-pressure chronic ulcer of back with unspecified severity; L89.312 Pressure ulcer of right buttock, stage 2; L89.212 Pressure ulcer of right hip, stage 2; K59.00 Constipation, unspecified; I50.9 Heart failure, unspecified; I48.0 Paroxysmal atrial fibrillation; B96.5 Pseudomonas (aeruginosa) (mallei) (pseudomallei) as the cause of diseases classified elsewhere; F41.9 Anxiety disorder, unspecified; G25.81 Restless legs syndrome; G30.1 Alzheimer's disease with late onset; H91.90 Unspecified hearing loss, unspecified ear; L89.619 Pressure ulcer of right heel, unspecified stage; F02.80 Dementia in other diseases classified elsewhere, unspecified severity, without behavioral disturbance, psychotic disturbance, mood disturbance, and anxiety; L89.320 Pressure ulcer of left buttock, unstageable; R15.9 Full incontinence of feces
CPT/HCPCS: 36415; 36573; 71045; 80048; 80053; 81001; 82565; 83605; 84145; 85025; 85610; 85652; 85730; 86140; 87040; 87070; 87075; 87077; 87086; 87186; 87205; 87635; 96361; 96365; 96366; 96367; 99285